=== PATIENT | female | born 1930 | race Caucasian/White ===

== ENCOUNTER → 2016-11-13 | Outpatient (CLI) | payer OTHER ==
[~2016-11-13] MED LIST: ALBU18002; ASPI81TA28 PO; CARB1GEL14; CHOL1000 PO; COLC0.6T54 PO; GABA-113 PO; LEVO125T72 PO; LOSA1TAB38 PO; MULT-190 PO; ROSU20TA PO; SACC250C3 PO; SPRIN/30 INH
--- NOTE | 2016-11-13 15:16 | DIAGNOSTIC IMAGING REPORT ---
LUMBAR SPINE W/O CONTRAST HISTORY:86 yearsFemaleLUMBAR RADICULOPATHY . Chronic low back pain which radiates into the right leg. Difficulty ambulating. COMPARISON: None available. TECHNIQUE: Sagittal T1, T2 and STIR with axial T1 and T2 noncontrast MR images of the lumbar spine were obtained. FINDINGS: There is 10 mm anterolisthesis of L4 on L5. Postlaminectomy changes with interbody rods and screw fixation noted at the L3-L4 and L4-L5 levels. Artifact from the hardware mildly limits evaluation of the levels. There is no focal bone marrow edema, acute fracture or marrow replacing process. 40% anterior endplate compression deformity at T11 appears chronic. There is approximately 3 mm retropulsion superiorly at this level causing mild central canal narrowing. Conus medullaris terminates at the T12-L1 level. Cord is within normal limits. Soft tissues, imaged intrapelvic intra-abdominal structures demonstrate no acute abnormality. On the independent producer images there is a circumscribed T2 hyperintense structure of the right hemipelvis, 2.4 x 3.2 cm which is indeterminate. T9-T10: No central canal or foraminal narrowing on the sagittal imaging alone. T10-T11: Broad-based posterior disc bulge with remote retropulsion from compression deformity causes mild central canal narrowing. Foramen appear patent. T11-T12: No central canal or foraminal narrowing on the sagittal imaging alone. T12-L1: No central canal or foraminal narrowing on the sagittal imaging alone. L1-L2: Mild facet arthropathy without central canal or foraminal narrowing. L2-L3: Circumferential annular disc bulge with central disc extrusion extends inferiorly 3 mm. There is also associated moderate facet arthropathy which results in mild central canal, moderate right and mild left foraminal stenosis. L3-L4: No central canal or foraminal narrowing. L4-L5: Disc uncovering with facet arthropathy. No central canal or definite foraminal narrowing. Evaluation of the right foramen is limited secondary to artifact as mentioned above. L5-S1: Broad-based posterior disc bulge with spondylitic ridging, moderate facet arthropathy and bilateral facet effusions. No central canal narrowing. There is moderate right and mild left foraminal stenosis. IMPRESSION: 1. Prior laminectomy with interbody lesa and screw fixation at L3-L4 and L4-L5. 2. 10 mm anterolisthesis of L4 on L5 without associated bone marrow edema. Correlate with comparison studies to evaluate for chronicity. 3. At L2-L3, there is mild central canal, moderate right and mild left foraminal narrowing secondary to combination of discogenic degeneration and moderate facet arthropathy. 4. At L5-S1, moderate facet arthropathy with facet effusions and posterior spondylitic ridging combines to form moderate right and mild left foraminal narrowing. 5. Remote compression deformity of T11 with minimal retropulsion causes mild central canal stenosis. The above report was generated using voice recognition software. It may contain grammatical, syntax or spelling errors. Electronically signed by: Serjio Kee 11/13/2016 3:14 PM Dictated Date/Time: 11/13/2016 3:04 PM
== END | disposition home or self-care (01) ==
LOC: C.MRIBC 14:05
PROVIDERS: ATTEND Physician Assistant Medical
DX: M54.16 Radiculopathy, lumbar region (principal)

== ENCOUNTER 2017-05-06 15:17 | Emergency (ER) | payer OTHER ==
[~2017-05-06] VITALS: Ht 160 cm; Wt 74.1 kg
[~2017-05-06 15:17] MED LIST changes: -SACC250C3 PO; -SPRIN/30 INH
[2017-05-06 15:18] VITALS: TEMP 36.3; Ht 160 cm; Wt 74.1 kg
[2017-05-06] MEDS ORDERED: IBUPROFEN 600 MG TAB PO STA (16:17)
--- NOTE | 2017-05-06 16:57 | DIAGNOSTIC IMAGING REPORT ---
RIGHT SHOULDER 3 VIEWS CLINICAL HISTORY: Fall with right shoulder pain. FINDINGS: 3 views of the right shoulder are obtained. No prior studies are available for comparison at the time of dictation. The skeletal structures are osteopenic. There is no evidence of fracture or dislocation. Mild arthritic change is seen at the glenohumeral articulation. The overlying soft tissues are within normal limits. Interstitial thickening is noted in the visualized right upper lobe. IMPRESSION: There is no radiographic evidence of right shoulder fracture or dislocation. Electronically signed by: Bryan Knapp M.D. 05/06/2017 4:56 PM Dictated Date/Time: 05/06/2017 4:55 PM
--- NOTE | 2017-05-06 17:02 | DIAGNOSTIC IMAGING REPORT ---
PA CHEST WITH RIGHT-SIDED RIB SERIES CLINICAL HISTORY: Fall with right-sided chest wall pain. FINDINGS: A PA chest radiograph with 4 additional views may right-sided rib series is obtained. No prior studies are available for comparison at the time of dictation. The heart is enlarged and there is atherosclerotic calcification of the thoracic aorta. Foci of linear scarring versus atelectasis are present at the lung bases. Chronic appearing interstitial thickening is noted. No large pleural effusion or pneumothorax is seen. The skeletal structures are osteopenic. There are acute appearing right lateral third, fourth, and fifth rib fractures. No additional right-sided rib fracture is clearly seen. Degenerative change is seen throughout the thoracic spine. Several age indeterminant thoracic compression deformities are noted. Fusion hardware is noted in the lumbar spine. Cholecystectomy clips are identified in the right upper quadrant. Atherosclerotic calcification is noted in the carotid bulbs. IMPRESSION: 1. Cardiomegaly with no acute cardiopulmonary abnormality. 2. There are acute appearing right lateral 3rd, 4th, and 5th rib fractures. Electronically signed by: Bryan Knapp M.D. 05/06/2017 5:00 PM Dictated Date/Time: 05/06/2017 4:56 PM
[2017-05-06] MEDS ORDERED: ONDA4TAB10 SL (17:11)
[2017-05-06] MEDS ORDERED: HYDR-5688 PO (17:11)
[2017-05-06 17:16] VITALS: BP 175/80; PULSE 78; O2SAT 95
--- NOTE | 2017-05-06 17:54 | EMERGENCY ROOM VISIT NOTE ---
ED Visit Note First contact with patient: 15:24 Patient seen and evaluated bedside, discussed all results. Discussed xray results, use of pain medications, follow-up with family doctor, symptoms to watch and return for, she verbalized understanding was agreeable with plan.
--- NOTE | 2017-05-07 10:57 | EMERGENCY ROOM VISIT NOTE ---
ED Visit Note First contact with patient: 15:24 Chief Complaint: I fell and hurt my right shoulder and ribs. History of Present Illness: Ms. Mcelroy is an 87-year-old white female who ambulates into the ED accompanied by female friend complaining of right shoulder and right sided rib pain. Patient reports she was visiting family members on [place], 4 days ago. She reports she was sitting on the edge of an air mattress and slid off and fell onto her right shoulder. She reports since that time she has been having anterior and lateral shoulder pain, thoracic back and right sided rib pain. Currently she describes her pain as an achy sensation that becomes sharp with shoulder movements. She places her shoulder pain over the anterior lateral aspect of the humeral head and proximal humerus. She places her rib discomfort over the anterior and lateral aspects of ribs 3 through 7. She places her thoracic back pain in the posterior aspect of ribs 5 through 7; no bony thoracic spine back pain. She reports her overall pain at rest is 3/10 and it becomes 6/10 with all arm movements and deep inspiration. She has been using [id number] ibuprofen without relief of her discomfort; she does report she took this medication about 4 hours before she arrived in the emergency department and after taking the medication noted his in 2011. Her shoulder pain worsens primarily with flexion and abduction of the glenohumeral joint and her rib pain worsens with deep inspiration and movements of her shoulder. She reports at the time of the injury she did not strike her head or have a loss of consciousness and since the injury she denies all signs of head injury, she also denies neck pain, chest pain, shortness of breath, abdominal pain, nausea, vomiting, right upper extremity weakness/numbness/tingling. Review of Systems: As noted above in history of present illness. At least body systems were reviewed and found to be negative as noted above. Past Medical History: Diabetes, hypertension, COPD, status post tonsillectomy, adenoidectomy, appendectomy, cholecystectomy, unspecified hip and knee surgeries , laminectomy and cataract surgery. Current Medications: Allergies to Medications: Codeine, oxycodone, sulfa. Social History: Patient is not employed; she feels safe in her home environment ; she denies tobacco use and admits to rare alcohol use. Physical Examination: Vital Signs: Date Time Temp Pulse Resp B/P (MAP) Pulse Ox O2 Delivery O2 Flow Rate FiO2 05/06/17 17:16 78 18 175/80 95 Room Air 05/06/17 15:18 36.3 95 18 131/61 94 Room Air GENERAL: 87-year-old female in mild distress due to pain, nontoxic-appearing, afebrile and hemodynamically stable. NEUROLOGICAL: Awake, alert and oriented to person, place and time. Answering questions appropriately and following commands. Good hand eye coordination. No focal motor sensory deficits. SKIN: Warm, dry and pink. No soft tissue trauma noted. HEENT: Atraumatic and normocephalic. Face: No signs of trauma. Airway is patent. Speech is normal and clear. BACK: No tenderness over the bony cervical, thoracic and lumbar spine. Mild tenderness over the posterior right ribs 5 through 7. I do not appreciate any bony deformity or crepitus. There is no subcutaneous air. I do not appreciate any tenderness throughout the paraspinous muscles or spasm. No CVA tenderness. THORAX: Lungs sounds are clear to auscultation and equal bilaterally with symmetrical chest wall. No wheezing, rales or rhonchi. Moderate tenderness over the lateral aspects of ribs 3 through 7. No bony crepitus, bony deformities, subcutaneous air, or soft tissue injuries. HEART: Regular rate and rhythm. No gallops, rubs or murmurs are appreciated. ABDOMEN: Flat, soft and nontender. Positive bowel sounds in all quadrants. No guarding, rigidity or organomegaly. RIGHT UPPER EXTREMITY: No gross bony deformity. Mild tenderness over the lateral and anterior aspect of the humeral head and proximal humerus. I do not appreciate any bony deformities or crepitus. No tenderness over the clavicle or scapula. Patient has full range of motion in all movements of the shoulder, elbow, forearm or wrist. No tenderness throughout the elbow, wrist or forearm. Throughout the extremity the skin was warm and pink. Capillary refill is brisk. Distal pulses were intact. Sensation was intact to light touch. ED Course: Patient is assessed as noted above. Patient's medication list was reviewed. Patient was given 600 mg of ibuprofen by mouth for pain. PA Chest with Right Sided Rib X-Rays: Were read by myself and the radiologist showing no acute infiltrates, effusions or pneumothorax. Cardiomegaly was present. Ribs showed acute fractures of the lateral aspect of ribs 3, 4 and 5. Right Shoulder X-Rays: Were read by myself and shows no acute fractures or dislocations. Patient's case was reviewed with Dr. Canales; she independently assessed the patient we agreed on diagnostic approach, treatment, disposition and plan. Patient was educated about today's findings and instructed on her treatment plan ; she verbalized understanding and agreement with this plan. Clinical Impression: Multiple right sided rib fractures. Right shoulder pain. Status post fall. Disposition: Patient discharged home in stable condition accompanied by female friends; prior to departure she was reassessed and subjectively reported her pain increased the level 4/10. She continued to deny any shortness of breath. Plan: Comfort measures were discussed with the patient including rest, ice and she was placed on a sliding pain scale of ibuprofen, acetaminophen and [place]; she was given appropriate narcotic precautions and her name was checked in the state database and no red flags were noted. Additionally patient was prescribed Zofran 4 mg; she reports she does have nausea during previous episodes of using narcotics. Patient was given an barometer and instructed on its use and encouraged to use it every couple hours while awake for 10-15 minutes. Patient was encouraged to contact her PCP and request follow-up care and treatment. Patient was encouraged return ED for uncontrolled pain, fevers, coughing up blood, difficulty breathing, shortness of breath, worsening arm pain, arm weakness/numbness/tingling or any new/concerning symptoms.
== END 2017-05-06 17:20 | disposition home or self-care (01) ==
LOC: C.EDB 15:17 → C.EDD 17:20
DX: S22.41XA Multiple fractures of ribs, right side, initial encounter for closed fracture (principal); M25.511 Pain in right shoulder; M54.6 Pain in thoracic spine; E11.9 Type 2 diabetes mellitus without complications; I10 Essential (primary) hypertension; J44.9 Chronic obstructive pulmonary disease, unspecified; W06.XXXA Fall from bed, initial encounter

== ENCOUNTER 2017-07-18 10:42 | Emergency (ER) | payer OTHER ==
[~2017-07-18] VITALS: Ht 152.4 cm; Wt 76.1 kg
[~2017-07-18 10:42] MED LIST changes: -ALBU18002; -CARB1GEL14; +HYDR-5688 PO; +ONDA4TAB10 SL
[2017-07-18 10:55] VITALS: TEMP 36.4; Ht 152.4 cm; Wt 76.1 kg
--- NOTE | 2017-07-18 11:44 | DIAGNOSTIC IMAGING REPORT ---
R HUMERUS MIN 2 VIEWS ROUTINE, R SHOULDER MIN 2 VIEWS ROUTINE HISTORY: 87 years-old Female right proximal humerus pain s/p fall acute right shoulder pain status post fall COMPARISON: Right shoulder radiographs 05/06/2017 chest and rib radiographs 05/06/2017 TECHNIQUE: 3 views of the right shoulder min 2 views of the right humerus FINDINGS: SHOULDER: Moderate degenerative changes of the glenohumeral and AC joints. Acute comminuted fracture of the proximal right humerus is noted with slight impaction. Lateral displacement of the proximal fracture fragments are noted measuring up to 7 mm. Fracture lines involve the surgical neck, greater and likely also the lesser tuberosity. The articular humeral head appears intact. Moderate soft tissue swelling with probable joint effusion. No dislocation. Likely remote fractures of the right ribs noted. HUMERUS: The mid and distal portions of the right humerus appear intact. IMPRESSION: comminuted mildly impacted and displaced fracture of the proximal right humerus with fracture lines involving the surgical neck, greater and likely also the lesser tuberosity. The above report was generated using voice recognition software. It may contain grammatical, syntax or spelling errors. Electronically signed by: Serjio Kee M.D. 07/18/2017 11:43 AM Dictated Date/Time: 07/18/2017 11:38 AM
[2017-07-18] MEDS ORDERED: ACETAMINOPHEN 500 MG TAB PO STA ×2 (11:46→11:52)
[2017-07-18] MEDS ORDERED: ONDA4TAB10 SL (12:28)
[2017-07-18] MEDS ORDERED: OXYC1TAB3 PO (12:28)
--- NOTE | 2017-07-18 12:31 | EMERGENCY ROOM VISIT NOTE ---
ED Visit Note First contact with patient: 11:02 CHIEF COMPLAINT: Right shoulder pain HISTORY OF PRESENT ILLNESS: This 87-year-old female patient presents to the emergency department, ambulatory, complaining of pain in the right shoulder after suffering a mechanical fall. The patient states she was getting off of the toilet, and trying to pull her pants up, when she believes she was standing on her pants. She lost her balance and fell, landing on the right shoulder on the cement floor. She denies any head injury. There is limitation of motion of the arm because of the pain. The pain is moderate, constant and increases with motion of the hand and arm. The patient states the pain is sharp and 5/10. The patient has taken nothing for relief of the pain. No previous significant previous shoulder disease or injury. No numbness or tingling. No neck or back pain. No chest pain or shortness of breath. No abdominal pain or nausea/ vomiting. No cough. The patient initially denies hitting her head, but later states she does not remember and is uncertain if she hit her head. REVIEW OF SYSTEMS: A 6 system review of systems was performed with positives and pertinent negatives in the HPI. ALLERGIES: Codeine, oxycodone MEDICATIONS: Aspirin, vitamin D, colchicine, gabapentin, Synthroid, Cozaar, Ocuvite PreserVision, Crestor PMH: Hypertension, neuropathy, hypothyroidism SOCIAL HISTORY: The patient lives locally alone. She denies drug, alcohol, tobacco use. PHYSICAL EXAM: Vital Signs: Reviewed nurse's notes, vital signs stable. GENERAL : This is an 87-year-old white female, in no acute distress, but appears to be in pain, well-developed, well-nourished. MUSCULOSKELETAL: There is no deformity in the contour of the right shoulder and there are no obvious mihaela deformities noted. There is no sulcus sign. There is tenderness over the proximal humerus/ humeral head. The patient's range of motion is significantly limited due to pain. Supraspinatus strength 3/5. There is no clavicle tenderness. No tenderness of the humerus, elbow, wrist, or hand. [employer] strength 5/5. Radial pulse 2+. NECK: No tenderness to palpation over the cervical spine. Supple. No lymphadenopathy. HEART: Regular rate and rhythm without murmurs gallops or rubs. LUNGS: Clear to auscultation bilaterally without wheezes, rales or rhonchi. No accessory muscle use. No retractions. HEENT: Contusion of right supraorbital region. No lacerations or open wounds noted. Normocephalic. PERRLA. Turbinates without edema or erythema. Nasal septum in tact without deviation. NEURO: The patient is alert and oriented to person, place, and time. Normal sensation to light and sharp touch. Capillary refill less than 2 seconds. RADIOLOGY: R HUMERUS MIN 2 VIEWS ROUTINE, R SHOULDER MIN 2 VIEWS ROUTINE HISTORY: 87 years-old Female right proximal humerus pain s/p fall acute right shoulder pain status post fall COMPARISON: Right shoulder radiographs 05/06/2017 chest and rib radiographs 05/06/2017 TECHNIQUE: 3 views of the right shoulder min 2 views of the right humerus FINDINGS: SHOULDER: Moderate degenerative changes of the glenohumeral and AC joints. Acute comminuted fracture of the proximal right humerus is noted with slight impaction. Lateral displacement of the proximal fracture fragments are noted measuring up to 7 mm. Fracture lines involve the surgical neck, greater and likely also the lesser tuberosity. The articular humeral head appears intact. Moderate soft tissue swelling with probable joint effusion. No dislocation. Likely remote fractures of the right ribs noted. HUMERUS: The mid and distal portions of the right humerus appear intact. IMPRESSION: comminuted mildly impacted and displaced fracture of the proximal right humerus with fracture lines involving the surgical neck, greater and likely also the lesser tuberosity. The above report was generated using voice recognition software. It may contain grammatical, syntax or spelling errors. Electronically signed by: Serjio Kee M.D. 07/18/2017 11:43 AM Dictated Date/Time: 07/18/2017 11:38 AM HEAD WITHOUT CONTRAST (CT) CLINICAL HISTORY: 87 years-old Female with fall, possible head injury. Acute head injury status post fall TECHNIQUE: Multiple axial CT images of the head were obtained without contrast. A dose lowering technique was utilized adhering to the principles of ALARA. CT DOSE: 614.27 mGy.cm COMPARISON: None. FINDINGS: No acute intracranial hemorrhage, midline shift, intracranial mass, hydrocephalus, territorial ischemia or abnormal extra-axial collection. Moderate atrophy with ex vacuo ventriculomegaly. Moderate patchy multifocal areas of low-attenuation within the periventricular white matter compatible with chronic microvascular ischemic changes. Senescent calcifications of the lentiform nuclei. Cerebral vascular calcifications are seen at the level of the skull base. The calvarium is intact. The paranasal sinuses, mastoid air cells, and middle ear cavities are clear. Mild right periorbital soft tissue swelling. IMPRESSION: 1. No acute intracranial abnormality or calvarial fracture. 2. Mild right periorbital soft tissue swelling without opaque foreign body. The above report was generated using voice recognition software. It may contain grammatical, syntax or spelling errors. Electronically signed by: Serjio Kee M.D. 07/18/2017 12:48 PM Dictated Date/Time: 07/18/2017 12:46 PM EMERGENCY DEPARTMENT COURSE: I examined the patient. An X-ray of the right shoulder and humerus was reviewed by myself and radiologist and shows proximal humerus fracture as above. I contacted orthopedics, and spoke with Dr. Prather, who recommended sling and swath, pain medication, and ice over the weekend and close follow-up with [facility] on Thursday. The patient was given 1000 mg Tylenol and her arm was placed in a sling and swath. The patient does live alone, but her family states they will be able to stay with her and keep her safe while healing from the arm fracture. The patient does have allergy listed to codeine and oxycodone, however she states the allergy is only nausea, and not a true allergy. She will be given Zofran in the case of nausea, but I did encourage her to use the narcotics only if needed and if not home alone to avoid more falls. The patient was seen by Dr. Menjivar, and she did state she is uncertain if she hit her head, after telling me she did not hit her head. CT scan was performed at this time due to the uncertainty and the patient's age, and was negative. Discharge instructions reviewed, the patient was discharged home in good condition. I attest that I have personally reviewed the patient's current medication list. Blood Pressure Screening: Patient was found to have a slightly elevated blood pressure due to circumstances. I do not believe that the patient requires hypertension monitoring. Differential diagnosis includes fracture, sprain, strain, contusion, dislocation , ICH, headache, migraine, facial fracture, contusion, skull fracture, and others DIAGNOSIS: Proximal right humerus fracture, closed head injury, fall Current/Historical Medications Scheduled Aspirin (Aspirin Ec), 81 MG PO DAILY Cholecalciferol (Vitamin D3), 1,000 UNITS PO DAILY Colchicine (Colchicine), 0.6 MG PO DAILY Gabapentin (Neurontin), 300 MG PO TID Levothyroxine Sodium (Synthroid), 125 MCG PO DAILY Losartan Potassium (Cozaar), 100 MG PO DAILY Ocuvite Preservision (Ocuvite Preservision), 1 TAB PO DAILY Ondasetron Odt (Zofran Odt), 4 MG SL Q6H Rosuvastatin Calcium (Crestor), 20 MG PO DAILY Scheduled PRN Oxycodone Ir (Roxicodone Ir), 1 TAB PO Q4-6H PRN for Pain Allergies Coded Allergies: Codeine (Verified Allergy, Intermediate, GI SYMPTOMS, 07/18/17) Oxycodone (Verified Allergy, Intermediate, GI SYMPTOMS, 07/18/17) Vital Signs Date Time Temp Pulse Resp B/P (MAP) Pulse Ox O2 Delivery O2 Flow Rate FiO2 07/18/17 12:50 69 16 147/95 96 Room Air 07/18/17 10:55 36.4 89 20 180/81 94 Room Air Medications Administered Medications (Trade) Dose Ordered Sig/Jhonny Route Start Time Stop Time Status Last Admin Dose Admin Acetaminophen (Tylenol Tab) 500 mg NOW STAT PO 07/18/17 11:46 07/18/17 11:47 DC 07/18/17 11:54 500 MG Acetaminophen (Tylenol Tab) 500 mg NOW STAT PO 07/18/17 11:52 07/18/17 11:53 DC 07/18/17 11:57 500 MG Departure Information Impression Primary Impression: Closed comminuted right humeral fracture Additional Impressions: Closed head injury Fall Dispostion Home / Self-Care Condition GOOD Prescriptions Ondasetron Odt (ZOFRAN ODT) 4 Mg Tab 4 MG SL Q6H for Nausea, #6 TAB Prov: Hayde Valdes PA-C 07/18/17 Oxycodone Ir (Roxicodone Ir) 5 Mg Tab 1 TAB PO Q4-6H Y for Pain, #10 TAB For Initial Treatment Prov: Hayde Valdes PA-C 07/18/17 Referrals Joe Rivera,,D.O. (PCP) Patient Instructions [facility] Additional Instructions You were seen in the ED today for a proximal humerus fracture. Oxycodone (OxyIR) 5mg: Take 1 pill every four to six hours as needed for breakthrough pain. Avoid alcohol, operating machinery or dangerous equipment, working on ladders or roofs, DRIVING, or situations where being under the influence may be dangerous. It is recommended to use an pdtn-ulm-wdcmdyn stool softener such as Colace, 100mg twice daily while taking this medication to avoid constipation. Ibuprofen(Motrin, Advil) may be used for fever or pain. Use 600mg every six hours as needed. Take with food. Avoid using more than 2400mg in a 24 hour period. Do not use 2400mg per day for more than three consecutive days without physician direction. Prolonged inappropriate use can lead to stomach upset or ulcers, or renal/cardiac adverse effects. (AND/OR) Acetaminophen(Tylenol) may be used for fever or pain. Use 1000mg every six hours as needed. Avoid using more than 3000mg in a 24 hour period. Ice compresses for 20 minutes at a time four times daily for 2-3 days. Use the sling as instructed. Remove your arm from the sling 4-6 times a day and move all the joints around to keep them loose. Rest and elevate your injury. Return to the ER immediately for any numbness, tingling, severe pain, extreme swelling in the extremity or as needed. Call [facility], [phone], on Thursday to arrange follow up for your injury. Follow-up with your primary care physician in 2 to 3 days for a recheck of your current condition. Return to the Emergency Department if your current symptoms worsen despite treatment course outlined above, or if you develop any of the following symptoms : intractable pain despite aforementioned treatment course, visual disturbances , loss of vision, unilateral weakness or facial drooping, slurring of speech, loss of coordination, or loss of consciousness. Problem Qualifiers Primary Impression: Closed comminuted right humeral fracture Encounter type: initial encounter Humerus Location: supracondylar fracture without intercondylar fracture Fracture alignment: displaced Qualified Codes : S42.421A - Displaced comminuted supracondylar fracture without intercondylar fracture of right humerus, initial encounter for closed fracture Additional Impressions: Closed head injury Encounter type: initial encounter Qualified Codes: S09.90XA - Unspecified injury of head, initial encounter Fall Encounter type: initial encounter Qualified Codes: W19.XXXA - Unspecified fall, initial encounter
[2017-07-18 12:50] VITALS: BP 147/95; PULSE 69; O2SAT 96
--- NOTE | 2017-07-18 12:50 | DIAGNOSTIC IMAGING REPORT ---
HEAD WITHOUT CONTRAST (CT) CLINICAL HISTORY: 87 years-old Female with fall, possible head injury. Acute head injury status post fall TECHNIQUE: Multiple axial CT images of the head were obtained without contrast. A dose lowering technique was utilized adhering to the principles of ALARA. CT DOSE: 614.27 mGy.cm COMPARISON: None. FINDINGS: No acute intracranial hemorrhage, midline shift, intracranial mass, hydrocephalus, territorial ischemia or abnormal extra-axial collection. Moderate atrophy with ex vacuo ventriculomegaly. Moderate patchy multifocal areas of low-attenuation within the periventricular white matter compatible with chronic microvascular ischemic changes. Senescent calcifications of the lentiform nuclei. Cerebral vascular calcifications are seen at the level of the skull base. The calvarium is intact. The paranasal sinuses, mastoid air cells, and middle ear cavities are clear. Mild right periorbital soft tissue swelling. IMPRESSION: 1. No acute intracranial abnormality or calvarial fracture. 2. Mild right periorbital soft tissue swelling without opaque foreign body. The above report was generated using voice recognition software. It may contain grammatical, syntax or spelling errors. Electronically signed by: Serjio Kee M.D. 07/18/2017 12:48 PM Dictated Date/Time: 07/18/2017 12:46 PM
--- NOTE | 2017-07-18 14:50 | EMERGENCY ROOM VISIT NOTE ---
ED Visit Note First contact with patient: 12:02 The patient was seen and examined with LEENA ji. I agree with the history, physical and findings. Please see the note for disposition and details.
== END 2017-07-18 13:01 | disposition home or self-care (01) ==
LOC: C.EDB 10:44 → C.EDD 13:01
DX: S42.421A Displaced comminuted supracondylar fracture without intercondylar fracture of right humerus, initial encounter for closed fracture (principal); S09.90XA Unspecified injury of head, initial encounter; W01.198A Fall on same level from slipping, tripping and stumbling with subsequent striking against other object, initial encounter; I10 Essential (primary) hypertension; E03.9 Hypothyroidism, unspecified; Z79.82 Long term (current) use of aspirin; Z88.6 Allergy status to analgesic agent

== ENCOUNTER 2020-02-29 10:09 | Inpatient (IN) ==
[2020-02-29] MEDS ORDERED: ONDANSETRON INJ 2 MG/ML 2 ML VIAL IV STA (10:37)
[2020-02-29] MEDS: MoRPHine SULFATE 4 MG/ML 1 ML CARP\\VIAL IV PRN ×3 (10:53→20:30)
--- NOTE | 2020-02-29 10:54 | Emergency Department Note ---
Impression & Plan Intertrochanteric fracture of right hip, Leukocytosis, DANNY (acute kidney injury), Serum calcium elevated ED Provider Note NAME: JADEN GOMEZ AGE: 89 SEX: F : 1930 ARRIVES VIA: Ambulance INFORMANT: Patient ED PROVIDER(S): Kanu Sharpe DO CHIEF COMPLAINT: Right hip pain HPI: Patient is a 89-year-old female who presents the ER following mechanical fall. She was trying to empty her paper shredder and did not have her walker. She turned around to get her walker and she fell onto her right hip. She did not hit her head or neck. This occurred around 8:30-9. She complains of pain in the right hip about a 6 out of 10. No other exacerbating or remitting factors with the exception of movement. She notes it is a dull ache now. Denies any new tingling or numbness. Denies any chest pain, shortness of breath, nausea, vomiting or diarrhea. Does have decreased sensation in the lower extremities which is chronic and unchanged since prior to the fall. ROS: See above HPI for pertinent positives & negatives. A total of 10 systems reviewed and were otherwise negative. PAST MEDICAL HISTORY:See Below PAST SURGICAL HISTORY:See Below FAMILY HISTORY:See Below SOCIAL HISTORY:See Below HOME MEDICATIONS:See Below ALLERGIES:See Below VITALS:See Below PHYSICAL EXAMINATION: GENERAL: alert, mild distress HEAD: normal cephalic, atraumatic EYE EXAM: normal conjunctiva, PERRL and EOM's grossly intact OROPHARYNX: no exudate, no erythema, lips, buccal mucosa, and tongue normal and mucous membranes are moist NECK: supple, no nuchal rigidity, no adenopathy, non-tender CHEST: stable to compression anteriorly and posteriorly LUNGS: clear to auscultation. Normal chest wall mechanics HEART: no murmurs, S1 normal and S2 normal ABDOMEN: abdomen soft, non-tender, normo-active bowel sounds, no masses, no rebound or guarding. PELVIS: stable to compression anteriorly and posteriorly BACK: Back is symmetrical on inspection and there is no deformity, no midline tenderness, no CVA tenderness. UPPER EXTREMITIES: full active and passive range of motion of all joints without tenderness to palpation LOWER EXTREMITIES: Left lower extremity without tenderness on palpation of left hip, femur, knee and ankle. Range of motion intact. DPs 2 out of 4 bilateral. PTs 2 out of 4 bilateral. Right lower extremity is shortened and externally rotated. Acute tenderness over the right hip. No tenderness throughout the mid to distal femur, knee, tib-fib or ankle. Plantar and dorsiflexion intact. NEURO EXAM: Normal sensorium, cranial nerves II-XII grossly intact, normal speech, no gross weakness of arms. GCS: 15. MEDICAL DECISION MAKING: Patient is a 9-year-old female who presents ER following mechanical fall. She denies any head or neck pain. She did not hit her head or neck. X-rays of the right hip show a right intertrochanteric fracture. IV was established blood work is obtained. Labs show a mild leukocytosis of 13,000. Do favor that this is likely stress-induced. INR unremarkable. BMP with a slightly elevated creatinine 1.5. Calcium is also elevated 10.3. UA was negative. She was typed and screened. X-ray of the femur was unremarkable with exception of the inner troches fracture. Patient was given IV morphine. She was updated bedside discussed with hospitalist for further evaluation as well as orthopedics Dr. Moe Prather. Triage Nursing notes reviewed. Prior medical records reviewed Vital Signs: reviewed and remarkable for no significant abnormalities Differential diagnosis: Differential diagnoses include major intracranial, cervical, spinal, thoracic, abdominal, pelvic and neurologic injury. Fracture, contusion, sprain, strain, laceration, abrasions included as well. ER treatment provided: See below Diagnostics interpreted by me: ECG: Sinus rhythm rate 80 Normal axis No PVCs Normal QTC Cardiac Monitoring: An order was placed for continuous cardiac monitoring. The monitor shows a rate of 82 with sinus rhythm. Laboratory studies: As stated above and show below. Imaging studies: Xrays of the pelvis and right hip right intertrochanteric fracture. X-ray of the right femur shows interval fracture Consultation(s): Discussed with Dr. Moe Prather from orthopedics Discussed with Dr. Marlon Knott ED COURSE: Procedures: none Critical Care: None Past Med/Surg History Medical History Chronic lumbar pain COPD (chronic obstructive pulmonary disease) Dyslipidemia Frozen shoulder Right Hypertension Hypothyroidism Osteoarthritis Osteoporosis Right humeral fracture Sacroiliitis Stage III chronic kidney disease Surgical History History of appendectomy History of arthroscopic knee surgery Right History of cholecystectomy History of dilatation and curettage History of herniorrhaphy History of lumbar surgery L3 through L5 fusion History of tonsillectomy and adenoidectomy History of tubal ligation History of vascular surgery Social History Smoking Status: Former smoker Hx Alcohol Use: Yes Alcohol type: wine Hx Substance Use: No Preferred Language: Norwegian Communication Ability: Effective Franchise Specialist Required: No Beliefs That Will Affect Care: None marital status: Current Living Situation: Alone Other Information That Helps Us Care for You: No Feels Safe at Home: Yes Safety Concerns: Feels Safe At This Time Assistive Devices: Denture - Upper, Denture - Lower, Glasses and Walker Allergies Allergies Allergy/AdvReac Type Severity Reaction Status Date / Time codeine AdvReac Intermediate GI SYMPTOMS Verified 02/29/20 12:58 oxycodone AdvReac Intermediate GI SYMPTOMS Verified 02/29/20 12:58 Home Meds Home Medications Medication Instructions Recorded Confirmed aspirin 81 mg tablet,delayed 81 mg PO DAILY 02/23/18 02/29/20 release cholecalciferol (vitamin D3) 25 1,000 units PO DAILY 02/23/18 02/29/20 mcg (1,000 unit) capsule colchicine 0.6 mg tablet 0.6 mg PO DAILY 02/23/18 02/29/20 rosuvastatin 20 mg tablet 20 mg PO DAILY 02/23/18 02/29/20 denosumab 60 mg/mL subcutaneous 60 mg SQ Q182D ml 02/26/18 02/29/20 syringe gabapentin 300 mg capsule 300 mg PO TID cap 02/26/18 02/29/20 losartan 100 mg tablet 50 mg PO DAILY tab 12/15/18 02/29/20 levothyroxine 50 mcg capsule 50 mcg PO DAILY 07/14/19 02/29/20 magnesium oxide 400 mg PO DAILY 02/29/20 02/29/20 [id number]-min 2 tab PO DAILY 02/29/20 02/29/20 [ICaps] Results & Data (ED) Vital Signs Vital Signs - 24 hr 02/29/20 10:16 Temperature 36.6 C Temperature Source Oral Pulse Rate 78 Respiratory Rate 16 Blood Pressure 179/84 H Blood Pressure Mean 115 Pulse Oximetry 95 Oxygen Delivery Method Room Air Sepsis Recent Fever Within 48 Hours No Sepsis New/Unexplained Change in Mental Status No Sepsis Action Taken by Nursing No Action Required Laboratory Data Result diagrams: 02/29/20 10:46 02/29/20 10:46 Lab Results 02/29/20 02/29/20 02/29/20 Range/Units 10:46 10:46 10:46 WBC 13.85 H (4.8-10.8) K/uL RBC 4.58 (4.2-5.4) M/uL Hgb 14.3 (12.0-16.0) g/dL Hct 43.4 (37-47) % MCV 94.8 (80-100) fL MCH 31.2 (25-34) pg MCHC 32.9 (32-36) g/dL RDW Std Deviation 47.8 H (36.4-46.3) fL RDW Coeff of Nuris 13.9 (11.5-14.5) % Plt Count 197 (130-400) K/uL MPV 8.8 (7.4-10.4) fL Immature Gran % (Auto) 0.4 % Neut % (Auto) 79.9 % Lymph % (Auto) 10.3 % Rains % (Auto) 8.2 % Eos % (Auto) 1.2 % Baso % (Auto) 0.0 % Neut # (Auto) 11.08 H (1.4-6.5) K/uL Lymph # (Auto) 1.42 (1.2-3.4) K/uL Rains # (Auto) 1.14 H (0.11-0.59) K/uL Eos # (Auto) 0.16 (0-0.5) K/uL Baso # (Auto) 0.00 (0-0.2) K/uL Immature Gran # (Auto) 0.05 H (0.00-0.02) K/uL PT Cancelled INR Cancelled APTT Cancelled PTT Ratio Cancelled Sodium (136-145) mmol/L Potassium (3.5-5.1) mmol/L Chloride (98-107) mmol/L Carbon Dioxide (21-32) mmol/L Anion Gap (3-11) BUN (7-18) mg/dl Creatinine (0.6-1.2) mg/dl Est Cr Clr Drug Dosing ml/min Est GFR ( Amer) Est GFR (Non-Af Amer) BUN/Creatinine Ratio (10-20) Glucose (70-99) mg/dl Calcium (8.5-10.1) mg/dl Blood Type O Positive Antibody Screen NEGATIVE 02/29/20 02/29/20 Range/Units 10:46 11:41 WBC (4.8-10.8) K/uL RBC (4.2-5.4) M/uL Hgb (12.0-16.0) g/dL Hct (37-47) % MCV (80-100) fL MCH (25-34) pg MCHC (32-36) g/dL RDW Std Deviation (36.4-46.3) fL RDW Coeff of Nuris (11.5-14.5) % Plt Count (130-400) K/uL MPV (7.4-10.4) fL Immature Gran % (Auto) % Neut % (Auto) % Lymph % (Auto) % Rains % (Auto) % Eos % (Auto) % Baso % (Auto) % Neut # (Auto) (1.4-6.5) K/uL Lymph # (Auto) (1.2-3.4) K/uL Rains # (Auto) (0.11-0.59) K/uL Eos # (Auto) (0-0.5) K/uL Baso # (Auto) (0-0.2) K/uL Immature Gran # (Auto) (0.00-0.02) K/uL PT 10.1 INR 1.0 APTT 26.8 PTT Ratio 1.0 Sodium 140 (136-145) mmol/L Potassium 4.3 (3.5-5.1) mmol/L Chloride 107 (98-107) mmol/L Carbon Dioxide 29 (21-32) mmol/L Anion Gap 4.0 (3-11) BUN 38 H (7-18) mg/dl Creatinine 1.51 H (0.6-1.2) mg/dl Est Cr Clr Drug Dosing 22.2 ml/min Est GFR ( Amer) 35.6 Est GFR (Non-Af Amer) 30.8 BUN/Creatinine Ratio 24.9 H (10-20) Glucose 113 H (70-99) mg/dl Calcium 10.3 H (8.5-10.1) mg/dl Blood Type Antibody Screen Administered Medications Gabapentin (Gabapentin 300 Mg Cap) 300 mg PO TID GEENA Stop: 03/30/20 13:59 Last Admin: 02/29/20 14:09 Dose: Not Given Documented by: [id number] Sodium Chloride (Nss 1000ml) 1,000 mls @ 85 mls/hr IV .[id number] GEENA Stop: 03/30/20 13:19 Last Admin: 02/29/20 14:04 Dose: 85 mls/hr Documented by: [id number] Morphine Sulfate (Morphine Sulfate 4 Mg/Ml 1 Ml Carp\Vial) 4 mg IV Q1H PRN PRN Reason: Severe Pain (Rating 7,8,9,10) Stop: 03/14/20 10:24 Last Admin: 02/29/20 13:58 Dose: 4 mg Documented by: [id number] Admin: 02/29/20 10:53 Dose: 4 mg Documented by: [id number] Discontinued Medications Ondansetron HCl (Ondansetron Inj 2 Mg/Ml 2 Ml Vial) 4 mg IV NOW STA Stop: 02/29/20 10:38 Last Admin: 02/29/20 10:54 Dose: 4 mg Documented by: [id number] Discharge Plan Visit Data Chief Complaint: Fall ED Provider: Kanu Sharpe Discharge Problem: Intertrochanteric fracture of right hip, Leukocytosis, DANNY (acute kidney injury), Serum calcium elevated Patient Disposition: Admitted As Inpatient Discharge Instructions Interventions: ED Discharge Assessment Last Done: 02/29/20 12:42 Discharge Problem: Intertrochanteric fracture of right hip Qualifiers: Encounter type: initial encounter Fracture type: closed Fracture alignment: displaced Qualified Code(s): S72.141A - Displaced intertrochanteric fracture of right femur, initial encounter for closed fracture Leukocytosis Qualifiers: Leukocytosis type: unspecified Qualified Code(s): D72.829 - Elevated white blood cell count, unspecified
[2020-02-29 11:03] LABS: Eosinophils # (auto) 0.16 K/uL (0-0.5); Eosinophils % (auto) 1.2 %; Hematocrit (blood only) 43.4 % (37-47); Hemoglobin 14.3 g/dL (12.0-16.0); Immature Granulocytes # (auto) 0.05 K/uL (0.00-0.02); Immature Granulocytes % (auto) 0.4 %; Lymphocytes # (auto) 1.42 K/uL (1.2-3.4); Lymphocytes % (auto) 10.3 %; Mean Corpuscular Hemoglobin 31.2 pg (25-34); Mean Corpuscular Hgb Conc 32.9 g/dL (32-36); Mean Corpuscular Volume 94.8 fL (80-100); Mean Platelet Volume 8.8 fL (7.4-10.4); Monocytes # (auto) 1.14 K/uL (0.11-0.59); Monocytes % (auto) 8.2 %; Neutrophils # (auto) 11.08 K/uL (1.4-6.5); Neutrophils % (auto) 79.9 %; Platelet Count 197 K/uL (130-400); RDW Coefficient of Variation 13.9 % (11.5-14.5); RDW Standard Deviation 47.8 fL (36.4-46.3); Red Blood Count 4.58 M/uL (4.2-5.4); White Blood Count 13.85 K/uL (4.8-10.8)
--- NOTE | 2020-02-29 11:25 | XRay Report ---
XR chest 1V portable CLINICAL HISTORY: Chest pain status post trauma COMPARISON STUDY: April 2017 FINDINGS: The heart is the upper limits of normal in size. There is no failure. There is no focal pul monary consolidation. There are no pleural effusions. No pneumothorax is visualized. There are old ri b fractures. Arthritic changes are present within the shoulders. There are left mid to lower lung zon e atelectatic changes.[ IMPRESSION: No active disease in the chest. ACT 112: Negative or not required by law. Electronically signed by: Nas Fiore M.D. 02/29/2020 11:23 AM
[2020-02-29 11:30] LABS: BUN Creatinine Ratio 24.9 (10-20); Calcium 10.3 mg/dl (8.5-10.1); Creatinine Clr Calc Pharmacy 22.2 ml/min; Est GFR (African American) 35.6; Est GFR (Non-African American) 30.8; Potassium 4.3 mmol/L (3.5-5.1)
--- NOTE | 2020-02-29 11:40 | XRay Report ---
XR hip RT 2V w pelvis HISTORY: 89 years-old Female r hip pain acute right-sided hip pain COMPARISON: Right hip radiographs 05/30/2016 TECHNIQUE: AP view of the pelvis with 2 views of the right hip FINDINGS: Demineralized appearance of the bones. Moderate osteoarthritis of the femoral acetabular joints. Ther e is an acute intertrochanteric fracture of the right femur with fracture extension into the subtroch anteric distribution. There is mild apex superior lateral angulation. There is approximately 11 mm me dial displacement of the intertrochanteric and lesser trochanteric fracture fragment. There is no dis location. Moderate lateral soft tissue swelling. Ovoid lucencies projecting over the proximal femoral diaphysis may reflect prior hardware removal. Posterior interbody lesa and screw fusion hardware of t he lumbar spine. IMPRESSION: Acute mildly comminuted and displaced intertrochanteric fracture of the right femur. ACT 112: Negative or not required by law. The above report was generated using voice recognition software. It may contain grammatical, syntax o r spelling errors. Electronically signed by: Serjio Kee M.D. 02/29/2020 11:39 AM
--- NOTE | 2020-02-29 11:58 | History & Physical Report ---
Date of Service February 29, 2020 Assessment & Plan (1) Intertrochanteric fracture of right hip: Patient admitted for the geriatric fracture program after x-ray revealed a mildly comminuted and displaced intertrochanteric right hip fracture. ER did phone Dr. Prather who accepted the patient for surgical correction the exact timing of this correction is not clear as mentioned in the HPI there is some concern the patient may have an allergy to implantable metal this could or could not be nickel this was communicated to orthopedic surgeon were attempting to get records from [facility] for previous surgery she is obviously tolerated spinal surgery as she has implanted fix of hardware in her back Patient have her home aspirin held DVT prevention will be SCDs (2) Stage III chronic kidney disease: We have no old records here patient's kidney disease seems to be stage III creatinine zero 1.5 we will renally dose medicines were appropriate (3) Hypothyroidism: Patient typically takes Synthroid 50 mcg a day (4) COPD (chronic obstructive pulmonary disease): Patient takes daily Spiriva and as needed albuterol (5) Hypertension: Patient takes losartan for blood pressure control we will watch in a postoperative day 1 and avoid orthostatic hypotension (6) DVT prophylaxis: SCDs until postoperative surgical preference is chosen History of Present Illness Primary Care Provider: Joe Rivera Jr, DO 89-year-old female who presents the ER following mechanical fall. She was trying to empty her paper shredder and did not have her walker. She turned around to get it and she fell onto her right hip. She did not hit her head or neck. This occurred around 8 30-9am. She complains of pain in the right hip about a 6 out of 10. No other exacerbating or remitting factors with the exception of movement. She notes it is a dull ache now. Denies any new tingling or numbness. Denies any chest pain shortness of breath nausea vomiting or diarrhea. Does have decreased sensation in the lower extremities which is chronic and unchanged since prior to the fall. 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 This information was relayed to orthopedic surgeon Allergies Allergy/AdvReac Type Severity Reaction Status Date / Time codeine Allergy Intermediate GI SYMPTOMS Verified 02/29/20 11:33 oxycodone Allergy Intermediate GI SYMPTOMS Verified 02/29/20 11:33 Home Medications Home Medications Medication Instructions Recorded Confirmed Type aspirin 81 mg tablet,delayed 81 mg PO DAILY 02/23/18 02/29/20 History release cholecalciferol (vitamin D3) 25 1,000 units PO DAILY 02/23/18 02/29/20 History mcg (1,000 unit) capsule colchicine 0.6 mg tablet 0.6 mg PO DAILY 02/23/18 02/29/20 History rosuvastatin 20 mg tablet 20 mg PO DAILY 02/23/18 02/29/20 History denosumab 60 mg/mL subcutaneous 60 mg SQ Q182D ml 02/26/18 02/29/20 History syringe gabapentin 300 mg capsule 300 mg PO TID cap 02/26/18 02/29/20 History losartan 100 mg tablet 50 mg PO DAILY tab 12/15/18 02/29/20 History levothyroxine 50 mcg capsule 50 mcg PO DAILY 07/14/19 02/29/20 History magnesium oxide 400 mg PO DAILY 02/29/20 02/29/20 History [id number]-qvxnabz-min 2 tab PO DAILY 02/29/20 02/29/20 History [ICaps] Past Med/Surg History Medical History (Updated 02/29/20 @ 12:55 by Danny Paul MD) Chronic lumbar pain COPD (chronic obstructive pulmonary disease) Dyslipidemia Frozen shoulder Right Hypertension Hypothyroidism Osteoarthritis Osteoporosis Right humeral fracture Sacroiliitis Stage III chronic kidney disease Surgical History History of appendectomy History of arthroscopic knee surgery Right History of cholecystectomy History of dilatation and curettage History of herniorrhaphy History of lumbar surgery L3 through L5 fusion History of tonsillectomy and adenoidectomy History of tubal ligation History of vascular surgery Social History Smoking Status: Never smoker marital status: Feels Safe at Home: Yes Review of Systems Review of Systems: Mild distress and fatigue no headache, blurry or double vision no speech or swallowing issues no chest pain, pressure or palpitations no shortness of breath, cough or wheezes no abdominal pain, nausea or vomiting, diarrhea or constipation no dysuria, hematuria or frequency Right hip pain especially with movement previous neuropathy is still present no back pain, CVA tenderness or radicular pain no bruising, bleeding or rashes no focal signs of weakness or numbness or still leg neuropathy likely from previous back surgery no complaints of anxiety or depression. Physical Exam Physical Exam: The patient appeared well nourished and normally developed. Vital signs as documented. Head exam is normocephalic atraumatic no scleral icterus Neck is without JVD, thyromegaly, or carotid bruits. Lungs are clear to auscultation, no focal loss of breath sounds Cardiac exam, Rhythm is regular.. No murmurs, rubs or gallops. Abdominal exam reveals normal bowel sounds, soft non tender, no masses Extremities right leg is shortened and rotated painful to movement Neurologic exam is alert and oriented, no focal loss of strength or referral neuropathy present of her feet Skin is without bruises or rashes Psychologically is without concerns for anxiety or depression. Results & Data Results & Data ([facility]) Vital Signs (Past 12 Hours) Vital Signs Temp Pulse Resp BP Pulse Ox 02/29/20 10:16 97.9 F 78 16 179/84 H 95 PG Care Time/CCT Total # of Minutes Spent Total Time Spent with Patient: Total time spent is greater than 50% in coordination of care (as documented) at patient's floor/unit and/or counseling patient: Coding Level of Care Code 88898 Initial Inpt Care Lvl 3 Diagnoses Intertrochanteric fracture of right hip S72.141A Stage III chronic kidney disease N18.3 Hypothyroidism E03.9 COPD (chronic obstructive pulmonary disease) J44.9 Hypertension I10 DVT prophylaxis Z29.9
[2020-02-29 12:09] LABS: Partial Thromboplastin Time 26.8 Seconds (21.0-31.0); Prothrombin Time 10.1 Seconds (9.0-12.0)
[2020-02-29] MEDS ORDERED: ALBUTEROL 0.5% NEB SOLN 2.5 MG/0.5 ML VIAL NEB PRN (12:57)
[2020-02-29 13:06] LABS: Appearance Urine Clear (Clear); Bilirubin Urine Negative (Negative); Blood Urine Negative (Negative); Color Urine Yellow; Glucose Urine UA Negative (Negative); Ketones Urine Negative (Negative); Leukocyte Esterase Urine Negative (Negative); Nitrite Urine Negative (Negative); Protein Urine Negative (Negative); Specific Gravity Urine 1.015 (1.000-1.030); Urobilinogen Urine Negative (Negative)
[2020-02-29] MEDS ORDERED: HYDROmorphone INJ 0.5 MG/0.5 ML SYR IV PRN (13:20)
[2020-02-29] MEDS ORDERED: ACETAMINOPHEN 325 MG TAB PO PRN (13:20)
[2020-02-29] MEDS ORDERED: NALOXONE HCL 0.4 MG/1 ML VIAL/CARP IV PRN (13:20)
[2020-02-29] MEDS ORDERED: hydrALAZINE HCL 20 MG/ML VIAL IV PRN (13:20)
[2020-02-29] MEDS ORDERED: ONDANSETRON INJ 2 MG/ML 2 ML VIAL IV PRN (13:20)
[2020-02-29] MEDS ORDERED: bisacodyL 10 MG SUPP PR PRN (13:20)
[2020-02-29] MEDS ORDERED: MAGNESIUM HYDROXIDE SUSP 30 ML UDC PO PRN (13:20)
[2020-02-29] MEDS ORDERED: ALUMINUM/MAGNESIUM SUSP 30 ML UDC PO PRN (13:20)
[2020-02-29] MEDS: SODIUM CHLORIDE 0.9% 1000ML 1,000 ML IV SCH (14:04)
[2020-02-29] MEDS: GABAPENTIN 300 MG CAP PO SCH ×2 (14:09→21:43)
--- NOTE | 2020-02-29 15:37 | Orthopedic Consultation ---
Date of Consultation February 29, 2020 Assessment & Plan (1) Intertrochanteric fracture of right hip: She was seen and examined by Dr. Guzman today. She been admitted by the hospitalist service. We will order regular diet today make her n.p.o. after midnight. She was educated on this fracture and the surgical treatment for it. We will plan on likely long trochanteric nailing of her right hip tomorrow with Dr. Mc. She does have metal allergy reported but does state that she has h ardware specifically titanium in her back and is done fine with this. Apparently the records have been requested from [facility]. In the meantime she is fairly comfortable at this point so we will not place her in any traction today. Present on Admission?: Yes History of Present Illness Reason for Consultation: Right hip fracture Attending Physician: Danny Paul MD History of Present Illness Velvet is an 89-year-old female who we are consulted for regarding a right hip fracture. She has been seen in our office and had injections for greater trochanteric bursitis in the past, most recently about a month ago by Dr. Mc. The injection helped her hip pain at the time. This morning she was at her apartment and was turning in her bedroom and fell and injured her right hip. She was brought to [facility] where x-rays were obtained she qas found to have a intertrochanteric hip fracture. Her only complaint at this time is right hip pain. She denies any other orthopedic complaints. She previously ambulated with a walker. She does have a history of some surgery on her right hip and her knee for fractures in the past. She states this was approximately 30 years ago and subsequently had the hardware removed. She also reports a metal allergy although she is unsure which certain metal. She reports that she has some titanium in her back from her spine surgery and has not had a problem with that hardware. Allergies Allergy/AdvReac Type Severity Reaction Status Date / Time codeine AdvReac Intermediate GI SYMPTOMS Verified 02/29/20 12:58 oxycodone AdvReac Intermediate GI SYMPTOMS Verified 02/29/20 12:58 Home Medications Home Medications Medication Instructions Recorded Confirmed Type aspirin 81 mg tablet,delayed 81 mg PO DAILY 02/23/18 02/29/20 History release cholecalciferol (vitamin D3) 25 1,000 units PO DAILY 02/23/18 02/29/20 History mcg (1,000 unit) capsule colchicine 0.6 mg tablet 0.6 mg PO DAILY 02/23/18 02/29/20 History rosuvastatin 20 mg tablet 20 mg PO DAILY 02/23/18 02/29/20 History denosumab 60 mg/mL subcutaneous 60 mg SQ Q182D ml 02/26/18 02/29/20 History syringe gabapentin 300 mg capsule 300 mg PO TID cap 02/26/18 02/29/20 History losartan 100 mg tablet 50 mg PO DAILY tab 12/15/18 02/29/20 History levothyroxine 50 mcg capsule 50 mcg PO DAILY 07/14/19 02/29/20 History magnesium oxide 400 mg PO DAILY 02/29/20 02/29/20 History [id number]-zwawlhi-min 2 tab PO DAILY 02/29/20 02/29/20 History [ICaps] Patient History Medical History Chronic lumbar pain COPD (chronic obstructive pulmonary disease) Dyslipidemia Frozen shoulder Right Hypertension Hypothyroidism Osteoarthritis Osteoporosis Right humeral fracture Sacroiliitis Stage III chronic kidney disease Surgical History History of appendectomy History of arthroscopic knee surgery Right History of cholecystectomy History of dilatation and curettage History of herniorrhaphy History of lumbar surgery L3 through L5 fusion History of tonsillectomy and adenoidectomy History of tubal ligation History of vascular surgery Social History Smoking Status: Former smoker Hx Alcohol Use: Yes Alcohol type: wine Hx Substance Use: No Preferred Language: Eritre[place] Communication Ability: Effective First Breaker Feeder Required: No Beliefs That Will Affect Care: None marital status: Current Living Situation: Alone Other Information That Helps Us Care for You: No Feels Safe at Home: Yes Safety Concerns: Feels Safe At This Time Assistive Devices: Denture - Upper, Denture - Lower, Glasses and Walker Review of Systems Review of Systems: All systems reviewed & are unremarkable except as noted in HPI & below Eyes: h/o visual loss Musculoskeletal: as per Subjective / HPI Neurologic: chronic neuropathy Physical Exam Constitutional: well developed and well nourished; no acute distress and no altered mental status ENMT: external ear and nose normal, oropharynx normal Respiratory: normal respiratory effort Cardiovascular: Vessels: dorsalis pedis pulses present Extremities: no edema Musculoskeletal: right leg is shortened and externally rotated. No range of motion of her right hip at this time. She can dorsiflex and plantarflex though dorsiflex seems limited. She can flex and extend her toes. No pain with motion of her wrists, fingers, elbows, or left hip. Skin: no rashes, warm and dry Trauma: no evidence of skin trauma scars on right hip and right knee Neurologic: moves all extremities Motor/Sensory: + sensory deficit (chronic lower extremity neuropathy ) Psychiatric: Orientation: alert and oriented x 3 Apperance: appeared stated age Results & Data ([facility]) Vital Signs (Past 12 Hours) Vital Signs Temp Pulse Pulse Resp BP BP Pulse Ox 02/29/20 13:05 36.8 C 78 14 163/76 H 97 02/29/20 10:16 36.6 C 78 16 179/84 H 95 Diagnostic Findings x-rays of her pelvis and right hip today demonstrate a comminuted intertrochanteric/subtrochanteric hip fracture. There is evidence of screw holes from her prior hardware in the right femoral shaft. PG Care Time/CCT Total # of Minutes Spent Total Time Spent with Patient: Total time spent is greater than 50% in coordination of care (as documented) at patient's floor/unit and/or counseling patient: Coding Level of Care Code 55418 Initial Inpt Care Lvl 3 Diagnoses Intertrochanteric fracture of right hip S72.141A
--- NOTE | 2020-02-29 16:38 | Anesthesiology Consultation ---
Date of Service February 29, 2020 Assessment & Plan Chart Review Chart Review: Acceptable Risk for Surgery and Patient NOT seen in Pre Admission Testing History Surgery Operation Date: 03/01/20 10:10 Proposed Procedures p Long Trok Nail Intramedullary Rene Femur - Mervin Mc DO Height/Weight Height: 5 ft Weight: 68.039 kg Allergies Allergy/AdvReac Type Severity Reaction Status Date / Time codeine AdvReac Intermediate GI SYMPTOMS Verified 02/29/20 12:58 oxycodone AdvReac Intermediate GI SYMPTOMS Verified 02/29/20 12:58 Medications Home Medications Medication Instructions Recorded Confirmed Last Taken aspirin 81 mg tablet,delayed 81 mg PO DAILY 02/23/18 02/29/20 02/28/20 release cholecalciferol (vitamin D3) 25 1,000 units PO DAILY 02/23/18 02/29/20 02/28/20 mcg (1,000 unit) capsule colchicine 0.6 mg tablet 0.6 mg PO DAILY 02/23/18 02/29/20 02/28/20 rosuvastatin 20 mg tablet 20 mg PO DAILY 02/23/18 02/29/20 02/28/20 denosumab 60 mg/mL subcutaneous 60 mg SQ Q182D ml 02/26/18 02/29/20 11/23/19 syringe gabapentin 300 mg capsule 300 mg PO TID cap 02/26/18 02/29/20 02/28/20 losartan 100 mg tablet 50 mg PO DAILY tab 12/15/18 02/29/20 02/28/20 levothyroxine 50 mcg capsule 50 mcg PO DAILY 07/14/19 02/29/20 02/28/20 magnesium oxide 400 mg PO DAILY 02/29/20 02/29/20 02/28/20 [id number]-[id number]-min 2 tab PO DAILY 02/29/20 02/29/20 02/28/20 [ICaps] Active Medications Generic Name Dose Route Start Last Admin Trade Name Freq PRN Reason Stop Dose Admin Gabapentin 300 mg 02/29/20 14:00 02/29/20 14:09 Gabapentin 300 Mg Cap PO 03/30/20 13:59 Not Given TID GEENA Sodium Chloride 1,000 mls @ 85 mls/hr 02/29/20 13:20 02/29/20 14:04 Nss 1000ml IV 03/30/20 13:19 85 mls/hr .[id number] GEENA Administration Morphine Sulfate 4 mg 02/29/20 10:25 02/29/20 13:58 Morphine Sulfate 4 Mg/Ml 1 Ml Carp\Vial IV 03/14/20 10:24 4 mg Q1H PRN Administration Severe Pain (Rating 7,8,9,10) Past Medical History Medical History Chronic lumbar pain COPD (chronic obstructive pulmonary disease) Dyslipidemia Frozen shoulder Right Hypertension Hypothyroidism Osteoarthritis Osteoporosis Right humeral fracture Sacroiliitis Stage III chronic kidney disease Past Surgical History Surgical History History of appendectomy History of arthroscopic knee surgery Right History of cholecystectomy History of dilatation and curettage History of herniorrhaphy History of lumbar surgery L3 through L5 fusion History of tonsillectomy and adenoidectomy History of tubal ligation History of vascular surgery Social History Smoking Status: Former smoker Hx Alcohol Use: Yes Alcohol type: wine alcohol intake frequency: holidays/special occasions only Hx Substance Use: No substance use type: does not use Physical Exam Vital Signs Last Vital Signs Temp 36.5 C 02/29/20 16:04 Pulse 100 H 02/29/20 16:04 Resp 16 02/29/20 16:04 BP 151/74 H 02/29/20 16:04 Pulse Ox 92 02/29/20 16:04 Testing Laboratory Results 02/29/20 10:46 02/29/20 10:46 PT 10.1 Seconds (9.0-12.0) 02/29/20 11:41 INR 1.0 (0.9-1.1) 02/29/20 11:41 APTT 26.8 Seconds (21.0-31.0) 02/29/20 11:41 Urine Color Yellow 02/29/20 12:51 Urine Appearance Clear (Clear) 02/29/20 12:51 Urine pH 7.0 (4.5-7.5) 02/29/20 12:51 Ur Specific [place] 1.015 (1.000-1.030) 02/29/20 12:51 Urine Protein Negative (Negative) 02/29/20 12:51 Urine Glucose (UA) Negative (Negative) 02/29/20 12:51 Urine Ketones Negative (Negative) 02/29/20 12:51 Urine Nitrite Negative (Negative) 02/29/20 12:51 Ur Leukocyte Esterase Negative (Negative) 02/29/20 12:51 Blood Type O Positive 02/29/20 10:46 Antibody Screen NEGATIVE 02/29/20 10:46
[2020-02-29] MEDS ORDERED: DOCUSATE SODIUM/SENNA 50/8.6MG TAB PO SCH (21:00)
[2020-03-01] MEDS: SODIUM CHLORIDE 0.9% 1000ML 1,000 ML IV SCH ×2 (00:18→11:55)
[2020-03-01] MEDS ORDERED: ceFAZolin 2000MG 2,000 MG/15 ML SYR IV SCH (06:00)
[2020-03-01] MEDS ORDERED: LEVOTHYROXINE SODIUM 50 MCG TABLET PO SCH (06:30)
[2020-03-01] MEDS: MoRPHine SULFATE 2 MG/ML CARP IV PRN ×2 (08:09→11:55)
[2020-03-01] MEDS: GABAPENTIN 300 MG CAP PO SCH ×2 (08:09→13:37)
[2020-03-01] MEDS ORDERED: CEROVITE ADV FORMULA TAB PO SCH (09:00)
[2020-03-01] MEDS ORDERED: UMECLIDINIUM BROMIDE 62.5MCG/BLISTER 7 PUFFS/INHALER INH SCH (09:00)
[2020-03-01] MEDS ORDERED: CHOLECALCIFEROL 1,000 UNITS 25 MCG TAB PO SCH (09:00)
[2020-03-01] MEDS ORDERED: prednisoLONE acetate 1% OP SUSP 5 ML BTL OP SCH (09:00)
[2020-03-01 09:05] LABS: Hematocrit (blood only) 35.3 % (37-47); Hemoglobin 11.2 g/dL (12.0-16.0); Mean Corpuscular Hemoglobin 30.5 pg (25-34); Mean Corpuscular Hgb Conc 31.7 g/dL (32-36); Mean Corpuscular Volume 96.2 fL (80-100); Mean Platelet Volume 8.9 fL (7.4-10.4); Platelet Count 166 K/uL (130-400); RDW Coefficient of Variation 14.3 % (11.5-14.5); RDW Standard Deviation 50.7 fL (36.4-46.3); Red Blood Count 3.67 M/uL (4.2-5.4); White Blood Count 8.85 K/uL (4.8-10.8)
[2020-03-01 09:35] LABS: BUN Creatinine Ratio 24.7 (10-20); Calcium 8.5 mg/dl (8.5-10.1); Creatinine Clr Calc Pharmacy 22.4 ml/min; Est GFR (African American) 35.4; Est GFR (Non-African American) 30.5; Potassium 4.6 mmol/L (3.5-5.1)
--- NOTE | 2020-03-01 09:54 | Hospitalist Progress Note ---
Date of Service March 01, 2020 Assessment & Plan (1) Intertrochanteric fracture of right hip: * Patient admitted for the geriatric fracture program after x-ray revealed a mildly comminuted and displaced intertrochanteric right hip fracture. ER did phone Dr. Prather who accepted the patient for surgical correction the exact timing of this correction is not clear as mentioned in the HPI there is some concern the patient may have an allergy to implantable metal this could or could not be nickel this was communicated to orthopedic surgeon were attempting to get records from [facility] for previous surgery she is obviously tolerated spinal surgery as she has implanted fix of hardware in her back * CXR without acute process. EKG unremarkable * Orthopedics consulted * NPO for R long trok nailing with Dr. 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 Hematoma noted to R hip region on exam * ASA held for OR today, utilizing SCDs * Ordered vitamin D level -- low at 24.9. On 1000 units daily --> will increase. Initially Ca 10.3 on admission, but improved to 8.5 with IVF. Albumin 3.0. * -- will increase oral supplementation Vit D (2) Stage III chronic kidney disease: * We have no old records here patient's kidney disease seems to be stage III as she states. Followed locally by her PCP but unaware of her baseline Cr values * IVF as above -- Cr unchanged * BMP in AM (3) Hypothyroidism: * TSH with AM labs * Continue [employer] Synthroid 50 mcg a day (4) COPD (chronic obstructive pulmonary disease): * Patient takes daily Spiriva and as needed albuterol * 94% on 2L as was 90% on RA. Lungs sound clear --> patient denies hx of sleep apnea/CHF although does endorse she sleeps with a raised bed. No ECHO in system. No murmur heard on examination. Patient appears euvolemic on examination. CXR with heart size upper limits of normal. Could consider ECHO (5) Hypertension: * HTN * Stable * BP currently 132/73 -- will hold losartan and resume in AM if BP tolerates and Cr stable (6) Dyslipidemia: * Continue crestor 20mg once taking PO (7) DVT prophylaxis: * SCDs * Chemoprophylaxis per orthopedics following procedure Dispo: OR today with Dr. Mc Admission and Anticipated Discharge Date Admission Date: February 29, 2020 Supervising Physician Co-Signing Physician Notes PA Supervision Note: I did not personally see or examine the patient today, but I verified all rolon points of LEENA Watts's assessment and plan with the following exceptions/additions: None Subjective Patient evaluated this morning. Pain controlled with ordered medications although is worsened significantly with any movement. Tender to the touch and already with hematoma. Discussed with CM this morning about [facility] at discharge as she lives in apartment [facility] by herself and moved from [place] 4 years ago and has heard good things from others in the complex. Hx cdiff in past x 2 requiring fecal transplant in [place]. Told to avoid all abx unless emergency. Recent eye infection after injection with Dr. Hung? and is still on every other day drops that she did receive this morning. Spoke with her son who lives in [place] this morning and denies needing to call for update. Plans for OR soon for repair of her R hip. Review of Systems Review of Systems: All systems reviewed & are unremarkable except as noted in HPI & below Physical Exam Constitutional: WD/WN, vitals as above cooperative; no acute distress Eyes: + anicteric sclerae and PERRL Neck: normal visual inspection Respiratory: normal respiratory effort, lungs clear to auscultation 94% on 2L Cardiovascular: RRR, no murmur, no edema Gastrointestinal (Abdomen): normal bowel sounds, soft, nontender, no hepatosplenomegaly Musculoskeletal: right leg shortened/externally rotated. ecchymosis/hematoma to R lateral thigh/hip no ROM performed at this time able to plantar flex/dorsiflex without issues calves non-tender NVI Neurologic: patellar DTR's 2+ bilat, sensation intact and PERRL, EOMI, accommodation nl, no face palsy, no dysarthria Psychiatric: A+Ox3, euthymic affect Genitourinary: iniguez draining yellow urine Lymphatic: no cervical or axillary lymphadenopathy Results & Data Results & Data ([facility]) Vital Signs (Past 12 Hours) Vital Signs Temp Pulse Resp BP Pulse Ox 03/01/20 07:52 36.8 C 94 H 16 132/73 94 02/29/20 23:40 37.0 C 89 14 113/66 90 Laboratory Results 03/01/20 03/01/20 03/01/20 Range/Units 09:14 09:14 08:22 WBC (4.8-10.8) K/uL RBC (4.2-5.4) M/uL Hgb (12.0-16.0) g/dL Hct (37-47) % MCV (80-100) fL MCH (25-34) pg MCHC (32-36) g/dL RDW Std Deviation (36.4-46.3) fL RDW Coeff of Nuris (11.5-14.5) % Plt Count (130-400) K/uL MPV (7.4-10.4) fL PT INR APTT PTT Ratio Sodium 138 (136-145) mmol/L Potassium 4.6 (3.5-5.1) mmol/L Chloride 107 (98-107) mmol/L Carbon Dioxide 25 (21-32) mmol/L Anion Gap 6.0 (3-11) BUN 38 H (7-18) mg/dl Creatinine 1.52 H (0.6-1.2) mg/dl Est Cr Clr Drug Dosing 22.4 ml/min Est GFR ( Amer) 35.4 Est GFR (Non-Af Amer) 30.5 BUN/Creatinine Ratio 24.7 H (10-20) Glucose 104 H (70-99) mg/dl Calcium 8.5 D (8.5-10.1) mg/dl Total Bilirubin 0.6 (0.2-1) mg/dl Direct Bilirubin 0.2 (0-0.2) mg/dl AST 17 (15-37) U/L ALT 26 (12-78) U/L Alkaline Phosphatase 51 (45-117) U/L Total Protein 5.8 L (6.4-8.2) gm/dl Albumin 3.0 L (3.4-5.0) gm/dl 25-OH Vitamin D Total 24.9 L (30-100) ng/ml Urine Color Urine Appearance (Clear) Urine pH (4.5-7.5) Ur Specific Lund (1.000-1.030) Urine Protein (Negative) Urine Glucose (UA) (Negative) Urine Ketones (Negative) Urine Blood (Negative) Urine Nitrite (Negative) Urine Bilirubin (Negative) Urine Urobilinogen (Negative) Ur Leukocyte Esterase (Negative) Nasal Screen MRSA (PCR) (Negative) COVID-19 Eval Order SARS-CoV-2, RNA, NAAT (NEGATIVE) Blood Type Antibody Screen 03/01/20 02/29/20 02/29/20 Range/Units 08:22 14:21 13:54 WBC 8.85 (4.8-10.8) K/uL RBC 3.67 L (4.2-5.4) M/uL Hgb 11.2 L D (12.0-16.0) g/dL Hct 35.3 L (37-47) % MCV 96.2 (80-100) fL MCH 30.5 (25-34) pg MCHC 31.7 L (32-36) g/dL RDW Std Deviation 50.7 H (36.4-46.3) fL RDW Coeff of Nuris 14.3 (11.5-14.5) % Plt Count 166 (130-400) K/uL MPV 8.9 (7.4-10.4) fL PT INR APTT PTT Ratio Sodium (136-145) mmol/L Potassium (3.5-5.1) mmol/L Chloride (98-107) mmol/L Carbon Dioxide (21-32) mmol/L Anion Gap (3-11) BUN (7-18) mg/dl Creatinine (0.6-1.2) mg/dl Est Cr Clr Drug Dosing ml/min Est GFR ( Amer) Est GFR (Non-Af Amer) BUN/Creatinine Ratio (10-20) Glucose (70-99) mg/dl Calcium (8.5-10.1) mg/dl Total Bilirubin (0.2-1) mg/dl Direct Bilirubin (0-0.2) mg/dl AST (15-37) U/L ALT (12-78) U/L Alkaline Phosphatase (45-117) U/L Total Protein (6.4-8.2) gm/dl Albumin (3.4-5.0) gm/dl 25-OH Vitamin D Total (30-100) ng/ml Urine Color Urine Appearance (Clear) Urine pH (4.5-7.5) Ur Specific Lund (1.000-1.030) Urine Protein (Negative) Urine Glucose (UA) (Negative) Urine Ketones (Negative) Urine Blood (Negative) Urine Nitrite (Negative) Urine Bilirubin (Negative) Urine Urobilinogen (Negative) Ur Leukocyte Esterase (Negative) Nasal Screen MRSA (PCR) Positive A (Negative) COVID-19 Eval Order SARS-CoV-2, RNA, NAAT NEGATIVE (NEGATIVE) Blood Type Antibody Screen 02/29/20 02/29/20 02/29/20 Range/Units 13:54 12:51 11:41 WBC (4.8-10.8) K/uL RBC (4.2-5.4) M/uL Hgb (12.0-16.0) g/dL Hct (37-47) % MCV (80-100) fL MCH (25-34) pg MCHC (32-36) g/dL RDW Std Deviation (36.4-46.3) fL RDW Coeff of Nuris (11.5-14.5) % Plt Count (130-400) K/uL MPV (7.4-10.4) fL PT 10.1 INR 1.0 APTT 26.8 PTT Ratio 1.0 Sodium (136-145) mmol/L Potassium (3.5-5.1) mmol/L Chloride (98-107) mmol/L Carbon Dioxide (21-32) mmol/L Anion Gap (3-11) BUN (7-18) mg/dl Creatinine (0.6-1.2) mg/dl Est Cr Clr Drug Dosing ml/min Est GFR ( Amer) Est GFR (Non-Af Amer) BUN/Creatinine Ratio (10-20) Glucose (70-99) mg/dl Calcium (8.5-10.1) mg/dl Total Bilirubin (0.2-1) mg/dl Direct Bilirubin (0-0.2) mg/dl AST (15-37) U/L ALT (12-78) U/L Alkaline Phosphatase (45-117) U/L Total Protein (6.4-8.2) gm/dl Albumin (3.4-5.0) gm/dl 25-OH Vitamin D Total (30-100) ng/ml Urine Color Yellow Urine Appearance Clear (Clear) Urine pH 7.0 (4.5-7.5) Ur Specific Lund 1.015 (1.000-1.030) Urine Protein Negative (Negative) Urine Glucose (UA) Negative (Negative) Urine Ketones Negative (Negative) Urine Blood Negative (Negative) Urine Nitrite Negative (Negative) Urine Bilirubin Negative (Negative) Urine Urobilinogen Negative (Negative) Ur Leukocyte Esterase Negative (Negative) Nasal Screen MRSA (PCR) (Negative) COVID-19 Eval [facility] SARS-CoV-2, RNA, NAAT (NEGATIVE) Blood Type Antibody Screen 02/29/20 02/29/20 02/29/20 Range/Units 10:46 10:46 10:46 WBC (4.8-10.8) K/uL RBC (4.2-5.4) M/uL Hgb (12.0-16.0) g/dL Hct (37-47) % MCV (80-100) fL MCH (25-34) pg MCHC (32-36) g/dL RDW Std Deviation (36.4-46.3) fL RDW Coeff of Nuris (11.5-14.5) % Plt Count (130-400) K/uL MPV (7.4-10.4) fL PT Cancelled INR Cancelled APTT Cancelled PTT Ratio Cancelled Sodium 140 (136-145) mmol/L Potassium 4.3 (3.5-5.1) mmol/L Chloride 107 (98-107) mmol/L Carbon Dioxide 29 (21-32) mmol/L Anion Gap 4.0 (3-11) BUN 38 H (7-18) mg/dl Creatinine 1.51 H (0.6-1.2) mg/dl Est Cr Clr Drug Dosing 22.2 ml/min Est GFR ( Amer) 35.6 Est GFR (Non-Af Amer) 30.8 BUN/Creatinine Ratio 24.9 H (10-20) Glucose 113 H (70-99) mg/dl Calcium 10.3 H (8.5-10.1) mg/dl Total Bilirubin (0.2-1) mg/dl Direct Bilirubin (0-0.2) mg/dl AST (15-37) U/L ALT (12-78) U/L Alkaline Phosphatase (45-117) U/L Total Protein (6.4-8.2) gm/dl Albumin (3.4-5.0) gm/dl 25-OH Vitamin D Total (30-100) ng/ml Urine Color Urine Appearance (Clear) Urine pH (4.5-7.5) Ur Specific Lund (1.000-1.030) Urine Protein (Negative) Urine Glucose (UA) (Negative) Urine Ketones (Negative) Urine Blood (Negative) Urine Nitrite (Negative) Urine Bilirubin (Negative) Urine Urobilinogen (Negative) Ur Leukocyte Esterase (Negative) Nasal Screen MRSA (PCR) (Negative) COVID-19 Eval Order SARS-CoV-2, RNA, NAAT (NEGATIVE) Blood Type O Positive Antibody Screen NEGATIVE PG Care Time/CCT Total # of Minutes Spent Total Time Spent with Patient: Total time spent is greater than 50% in coordination of care (as documented) at patient's floor/unit and/or counseling patient: Coding Level of Care Code 57251 Subseq Hosp Care Lvl 3 Diagnoses Intertrochanteric fracture of right hip S72.141A Encounter type: initial encounter Fracture alignment: displaced Fracture type: closed Stage III chronic kidney disease N18.3 Hypothyroidism E03.9 COPD (chronic obstructive pulmonary disease) J44.9 Hypertension I10 Dyslipidemia E78.5 DVT prophylaxis Z29.9 (1) Intertrochanteric fracture of right hip Encounter type: initial encounter Fracture alignment: displaced Fracture type: closed Qualified Code(s): S72.141A - Displaced intertrochanteric fracture of right femur, initial encounter for closed fracture
[2020-03-01 10:10] LABS: Bilirubin Direct 0.2 mg/dl (0-0.2); Bilirubin,Total 0.6 mg/dl (0.2-1); Total Protein 5.8 gm/dl (6.4-8.2)
--- NOTE | 2020-03-01 13:00 | Orthopedic Progress Note ---
Date of Service March 01, 2020 Assessment & Plan (1) Intertrochanteric fracture of right hip: We will proceed with an IM nail of her right hip. She has been n.p.o. She understands the risks, benefits, and alternatives to the procedure and is elected to proceed. Questions were answered at bedside today. Consents have been signed. Present on Admission?: Yes Admission and Anticipated Discharge Date Admission Date: February 29, 2020 Giovanni Verdin was seen and examined at bedside this morning. She has been bedrest since yesterday. She is ready to proceed with an IM nail of her right hip today. She had no new complaints overnight. Physical Exam Physical Exam: On physical examination of the right leg, the right leg is shortened and externally rotated. She is neurovascularly intact. There is a well-healed incision from a previous surgery on her right hip. She has significant pain with logrolling of the right hip. Results & Data ([facility]) Vital Signs (Past 12 Hours) Vital Signs Temp Pulse Resp BP Pulse Ox 03/01/20 07:52 36.8 C 94 H 16 132/73 94 PG Care Time/CCT Total # of Minutes Spent Total Time Spent with Patient: Total time spent is greater than 50% in coordination of care (as documented) at patient's floor/unit and/or counseling patient: Coding Level of Care Code 68733 Subseq Hosp Care Lvl 2 Diagnoses Intertrochanteric fracture of right hip S72.141A Encounter type: initial encounter Fracture alignment: displaced Fracture type: closed (1) Intertrochanteric fracture of right hip Encounter type: initial encounter Fracture alignment: displaced Fracture type: closed Qualified Code(s): S72.141A - Displaced intertrochanteric fracture of right femur, initial encounter for closed fracture
[2020-03-01] MEDS ORDERED: MIDAZOLAM HCL 1 MG/ML 2ML VIAL ONE (13:38)
[2020-03-01] MEDS ORDERED: PROPOFOL IV EMULSION 10 MG/ML 20 ML VIAL IV ONE (13:38)
[2020-03-01] MEDS ORDERED: fentaNYL citrate 100 MCG/2 ML VIAL ONE (13:38)
[2020-03-01] MEDS ORDERED: ONDANSETRON INJ 2 MG/ML 2 ML VIAL IV PRN (14:00)
[2020-03-01] MEDS ORDERED: ATROPINE SULFATE 0.1 MG/ML 10ML SYR IV PRN (14:00)
[2020-03-01] MEDS ORDERED: BUPIVACAINE/EPINEPHRINE 0.25% 1:200,000 30 ML VIAL ONE (14:01)
[2020-03-01] MEDS ORDERED: ROCURONIUM BROMIDE 10 MG/ML 5 ML VIAL IV ONE (14:50)
[2020-03-01] MEDS ORDERED: ONDANSETRON INJ 2 MG/ML 2 ML VIAL ONE (14:50)
[2020-03-01] MEDS ORDERED: GLYCOPYRROLATE 0.2 MG/ML VIAL ONE (14:50)
[2020-03-01] MEDS ORDERED: ePHEDrine sulfate 50 MG/ML SYR ONE (14:50)
[2020-03-01] MEDS ORDERED: PHENYLEPHRINE 100MCG/ML 5ML SYR ONE (14:50)
[2020-03-01] MEDS ORDERED: LIDOCAINE HCL 2% 2 ML VIAL/AMP(20MG/ML) INFIL ONE (14:50)
[2020-03-01] MEDS ORDERED: NEOSTIGMINE METHYLSULFATE 5 MG/5 ML SYR ONE (14:50)
--- NOTE | 2020-03-01 15:31 | Operative Report ---
PG Post Operative Report Pre & Post Diagnosis Operation Date: 03/01/20 10:10 Pre-Op Diagnosis: Right Intertrochanteric Hip Fracture Post-Op Diagnosis: Right Intertrochanteric Hip Fracture I identified the patient and participated in the time-out.: Yes Procedure Operation Date: 03/01/20 10:10 Actual Procedures p Intramedullary Nail Right Hip(Right) - Mervin Mc DO Surgeon Mervin Mc, Adult Educator Mervin Felton PAC Estimated Blood Loss 50 Findings Consistent with Post-Op Diagnosis Specimens None Complications none Disposition Disposition: Recovery Room Indications Velvet is a pleasant 89-year-old female who fell yesterday sustaining a right intertrochanteric hip fracture. She came to mount in the emergency room where radiographs confirmed the diagnosis. She was admitted to the medicine team. Orthopedics was consulted. After discussions at bedside, she elected proceed with an IM nail of the right hip. Description of Procedure On March 01, 2020 she was brought down from her hospital room to the preoperative holding area. The operative extremity was identified and signed. She is given a preoperative antibiotic. She was taken back to the operating room and laid on the table in supine position. She was put under general anesthesia. Her right leg was brought out to traction on a fracture table. X- rays were taken to confirm near anatomic alignment of the fracture. The right hip was then prepped and draped in sterile fashion. A timeout was done. The patient and the operative extremity was properly identified. A longitudinal incision was made just superior to the greater trochanter. Dissection was taken down through the fascia. A guidepin was placed at the tip of the greater trochanter and advanced down the femoral shaft. Orthogonal fluoroscopic images were used to confirm appropriate alignment of the guidepin. A 17 mm opening reamer was then passed through the greater trochanter. A Synthes short TFN nail was then impacted into place. Appropriate placement was checked under fluoroscopy. A lateral incision was then made. An outrigger was placed off the nail and a cannula was advanced to the lateral cortex of the femur for the helical blade. A guidepin was then placed up into the center center position of the femoral head. Appropriate position was checked under fluoroscopy. The helical blade measured to be 85 mm. The lateral cortex was then drilled and the helical blade was impacted into place. The plate was then locked and the fracture was compressed. A cannula was then advanced from the distal locking screw. A drill was passed through the diaphysis of the femur. The screw measured to be 42 mm. A 42 mm locking screw was then placed. I was able to get excellent purchase. The wounds were then irrigated. The outrigger was removed. Final fluoroscopic images showed near anatomic alignment. The deep fascial layer was closed with #1 Vicryl suture. Skin was closed with 2-0 Vicryl and ralf. She was then placed in a soft dressing. She was then extubated and transferred to the hospital bed. She was taken to the postanesthesia care unit in stable condition. She tolerated the procedure well. Mervin Felton PA-C, was present for the entire procedure. He was critical for patient positioning, prepping, draping, retraction exposure, wound closure and application of sterile dressing. I attest to the content of the Intraoperative Record and any orders documented therein. Any exceptions are noted below.
--- NOTE | 2020-03-01 15:43 | Fluoroscopy Report ---
FL hip RT 2-3V CLINICAL HISTORY: RT LONG TROCH NAIL COMPARISON STUDY: 02/29/2020 FLUOROSCOPY TIME: 67 seconds. NUMBER OF FLUOROSCOPIC IMAGES: 4 FINDINGS: 4 intraprocedural fluoroscopic spot images demonstrate internal fixation of an intertrochan teric right hip fracture with a femoral neck nail and interlocking medullary lesa. IMPRESSION: Internally fixated intertrochanteric right hip fracture. ACT 112: Negative or not required by law. Electronically signed by: Nas Fiore M.D. 03/01/2020 3:42 PM
[2020-03-01] MEDS: HYDROmorphone INJ 1 MG/ML SYRINGE IV PRN ×4 (16:02→16:33)
--- NOTE | 2020-03-01 16:22 | XRay Report ---
XR hip RT min 2V CLINICAL HISTORY: Hip fracture. Postoperative study COMPARISON: 02/29/2020 DISCUSSION: There has been interval internal fixation of the intertrochanteric right hip fracture wit h a femoral neck nail and interlocking medullary lesa. Alignment appears satisfactory. There are overl srini skin ralf. There is gas present within the soft tissues consistent with recent surgery IMPRESSION: Internally fixated intertrochanteric right hip fracture. ACT 112: Negative or not required by law. Electronically signed by: Nas Fiore M.D. 03/01/2020 4:21 PM
--- NOTE | 2020-03-01 16:25 | Anesthesiology Progress Note ---
Date of Service March 01, 2020 Anesthesia Post Procedure Vital Signs Vital Signs: Temp Pulse Resp BP Pulse Ox 03/01/20 16:15 91 H 18 156/99 H 92 03/01/20 16:05 87 18 159/60 H 95 03/01/20 15:55 106 H 18 139/86 96 03/01/20 15:49 37.0 C 111 H 18 161/80 H 98 03/01/20 13:45 36.7 C 83 18 158/65 H 98 03/01/20 07:52 36.8 C 94 H 16 132/73 94 02/29/20 23:40 37.0 C 89 14 113/66 90 Pain Intensity Right Hip: Pain Intensity: 6 Transfer of Care Handoff Completed per policy Notes Mental Status: alert / awake / arousable Patient Amnestic to Procedure: Yes Nausea / Vomiting: adequately controlled Pain: adequately controlled Airway Patency, RR, SpO2: stable & adequate BP & HR: stable & adequate Hydration State: stable & adequate Anesthetic Complications: no major complications apparent
[2020-03-01] MEDS ORDERED: HYDROmorphone INJ 0.5 MG/0.5 ML SYR IV PRN (17:09)
[2020-03-01] MEDS ORDERED: NALOXONE HCL 0.4 MG/1 ML VIAL/CARP IV PRN (17:09)
[2020-03-01] MEDS: ENOXAPARIN INJ 30 MG/0.3 ML SYR SQ SCH ×2 (21:59→22:11)
[2020-03-01] MEDS: ceFAZolin 1000MG 1,000 MG/7.5 ML SYR IV SCH (21:59)
[2020-03-01] MEDS ORDERED: ENOXAPARIN INJ 40 MG/0.4 ML SYR SQ SCH (22:00)
[2020-03-01] MEDS: oxyCODONE HCL IR 5 MG TAB (IMMEDIATE RELEASE) PO PRN (22:02)
[2020-03-02] MEDS: LEVOTHYROXINE SODIUM 50 MCG TABLET PO SCH (06:21)
[2020-03-02] MEDS: ceFAZolin 1000MG 1,000 MG/7.5 ML SYR IV SCH (06:22)
[2020-03-02] MEDS: oxyCODONE HCL IR 5 MG TAB (IMMEDIATE RELEASE) PO PRN (06:27)
[2020-03-02 07:06] LABS: Eosinophils # (auto) 0.03 K/uL (0-0.5); Eosinophils % (auto) 0.3 %; Hematocrit (blood only) 31.6 % (37-47); Hemoglobin 9.7 g/dL (12.0-16.0); Immature Granulocytes # (auto) 0.04 K/uL (0.00-0.02); Immature Granulocytes % (auto) 0.4 %; Lymphocytes # (auto) 1.28 K/uL (1.2-3.4); Lymphocytes % (auto) 13.1 %; Mean Corpuscular Hemoglobin 29.9 pg (25-34); Mean Corpuscular Hgb Conc 30.7 g/dL (32-36); Mean Corpuscular Volume 97.5 fL (80-100); Mean Platelet Volume 9.2 fL (7.4-10.4); Monocytes # (auto) 0.75 K/uL (0.11-0.59); Monocytes % (auto) 7.7 %; Neutrophils # (auto) 7.69 K/uL (1.4-6.5); Neutrophils % (auto) 78.5 %; Platelet Count 183 K/uL (130-400); RDW Coefficient of Variation 14.1 % (11.5-14.5); RDW Standard Deviation 50.8 fL (36.4-46.3); Red Blood Count 3.24 M/uL (4.2-5.4); White Blood Count 9.79 K/uL (4.8-10.8)
--- NOTE | 2020-03-02 07:06 | XRay Report ---
XR chest 1V portable HISTORY: 89 years-old Female Hypoxia acute hypoxia COMPARISON: Chest radiograph 02/29/2020 TECHNIQUE: Portable AP view of the chest FINDINGS: Cardiac silhouette is mildly enlarged, unchanged. Calcified plaque of the thoracic aortic arch. Mild chronic interstitial coarsening. No pneumothorax, pleural effusion, airspace consolidation or overt p ulmonary edema. Mild subsegmental bibasilar opacities suggestive of atelectasis. Degenerative changes of the shoulders and spine. Healed remote fracture deformity of the proximal right humerus. IMPRESSION: No acute process. ACT 112: Negative or not required by law. The above report was generated using voice recognition software. It may contain grammatical, syntax o r spelling errors. Electronically signed by: Serjio Kee M.D. 03/02/2020 7:05 AM
[2020-03-02 07:37] LABS: BUN Creatinine Ratio 22.4 (10-20); Calcium 7.7 mg/dl (8.5-10.1); Creatinine Clr Calc Pharmacy 23.7 ml/min; Est GFR (African American) 37.7; Est GFR (Non-African American) 32.6; Potassium 4.3 mmol/L (3.5-5.1)
[2020-03-02] MEDS ORDERED: ALBUTEROL 0.083% NEBU SOLN 3 ML VIAL NEB STA (08:49)
[2020-03-02] MEDS ORDERED: CHOLECALCIFEROL 1,000 UNITS 25 MCG TAB PO SCH (09:00)
[2020-03-02] MEDS ORDERED: LOSARTAN POTASSIUM 50 MG TAB PO SCH (09:00)
[2020-03-02] MEDS ORDERED: diphenhydrAMINE 50 MG/ML VIAL ONE (09:01)
[2020-03-02] MEDS ORDERED: diphenhydrAMINE 50 MG/ML VIAL IV STA (09:04)
[2020-03-02] MEDS ORDERED: MECLIZINE 12.5 MG TAB PO PRN (09:07)
[2020-03-02] MEDS: UMECLIDINIUM BROMIDE 62.5MCG/BLISTER 7 PUFFS/INHALER INH SCH (09:12)
[2020-03-02] MEDS ORDERED: hydrALAZINE HCL 20 MG/ML VIAL IV PRN (09:20)
[2020-03-02] MEDS: MAGNESIUM OXIDE 400 MG TAB PO SCH (09:21)
[2020-03-02] MEDS: ROSUVASTATIN CALCIUM 20 MG TAB PO SCH (09:26)
[2020-03-02] MEDS: GABAPENTIN 300 MG CAP PO SCH ×4 (09:26→21:30)
[2020-03-02] MEDS: CHOLECALCIFEROL 1,000 UNITS 25 MCG TAB PO SCH (09:26)
[2020-03-02] MEDS: DOCUSATE SODIUM 100 MG CAP PO SCH ×2 (09:27→20:19)
[2020-03-02] MEDS ORDERED: OPTIRAY 320 125ml IV ONE (09:53)
--- NOTE | 2020-03-02 10:08 | CT Scan Report ---
CT angio chest PE protocol CT DOSE: 356.91 mGy.cm HISTORY: 89 years-old Female with PE. Acute atypical chest pain TECHNIQUE: Multiple CTA images of the chest were obtained after the intravenous administration of 114 ml Optiray 320. Coronal and sagittal MIPS were obtained from the axial data set and were submitted for review. All measurements were obtained according to NASCET criteria. A dose lowering technique w as utilized adhering to the principles of ALARA. COMPARISON: Chest radiograph of same day FINDINGS: CTA: Moderate cardiomegaly. No pericardial effusion. Mild to moderate coronary artery calcifications. No t horacic aortic aneurysm. Moderate mixed plaque of the thoracic aortic arch. Patency of the imaged gre at vessels. Mild kinking of the mid subclavian arteries. The pulmonary arterial tree is opacified to level of the segmental branches. Respiratory motion limits evaluation of the lung bases. No filling d efects identified to suggest thromboembolic disease. CT CHEST: No thyroid nodule. No adenopathy. Trace pleural effusions. Biapical pleural-parenchymal scarring. Mil d to moderate emphysema. Subsegmental bibasilar atelectasis. Dependent groundglass opacities are note d asymmetrically within the right upper lobe. Minimal patchy groundglass opacities of the superior se gment right lower lobe. 3 mm solid nodule of the right lower lobe superior segment on image 126 serie s 4. Central airways are patent. Mild nonspecific distal esophageal wall thickening. Cholecystectomy. Soft tissues are unremarkable. D emineralized appearance of the bones. Severe right glenohumeral osteoarthritis with remote right prox imal humeral fracture deformity. Remote right-sided rib fractures. Likely remote superior endplate co mpression deformity at T7 and T11. IMPRESSION: 1. Cardiomegaly without evidence of pulmonary thromboembolic disease or acute aortic pathology. 2. Emphysema with trace pleural effusions. 3. Asymmetric groundglass opacities of the right upper lobe are noted with a few patchy groundglass d ensities of the superior segment right lower lobe. Correlate clinically to exclude a mild nonspecific infectious or inflammatory pneumonitis. 4. 3 mm solid nodule of the superior segment right lower lobe, likely benign. 5. No adenopathy. 6. Cholecystectomy. Please refer to below summary of Fleischner criteria recommendations for follow-up of incidental CT n jaqueline Johnson, Guidelines for management of small pulmonary nodules detected on CT scans: A sta tement from the Fleischner Society, Radiology 237: [phone].) SOLID NODULES Solitary nodule size: <6 mm * Low risk patients: no follow-up needed * high risk patients: optional CT at 12 months Note: newly detected indeterminate nodule in persons 35 years of age or older. * Low risk patients: minimal or absent history of smoking and/or other known risk factors * high risk patients: history of smoking or of other known risk factors (e.g. first degree relative with lung cancer, or exposure to asbestos, radon, uranium) * if a nodule up to 8 mm is partly solid or is ground glass further follow-up is required after 24 m onths to exclude possible slow growing adenocarcinoma (LEIDY) ACT 112: Negative or not required by law. The above report was generated using voice recognition software. It may contain grammatical, syntax o r spelling errors. Electronically signed by: Serjio Kee M.D. 03/02/2020 10:07 AM
--- NOTE | 2020-03-02 10:20 | Hospitalist Progress Note ---
Date of Service March 02, 2020 Assessment & Plan (1) Shortness of breath: * Reported this morning -- dropped to 87% on RA. Patient with hx COPD and utilizes Spiriva daily in addition to albuterol HFA prn * CXR negative for acute process * CT chest NEGATIVE for PE * EKG reviewed, similar to prior. Trop negative. Trend * Transferred to [facility] for closer monitoring -- has been NSR with PACs * Albuterol neb prn -- changed to scheduled as she had not gotten dose since this morning * Currently 92% on 2L NC * Continue incentive spirometer * Will order small dose prednisone to see if any additional benefit * Continue to monitor (2) Intertrochanteric fracture of right hip: * Patient admitted for the geriatric fracture program after x-ray revealed a mildly comminuted and displaced intertrochanteric right hip fracture. ER did phone Dr. Prather who accepted the patient for surgical correction the exact timing of this correction is not clear as mentioned in the HPI there is some concern the patient may have an allergy to implantable metal this could or could not be nickel this was communicated to orthopedic surgeon were attempting to get records from [facility] for previous surgery she is obviously tolerated spinal surgery as she has implanted fix of hardware in her back * CXR without acute process. EKG unremarkable * POD #1 s/p R long trok nailing with Dr. Mc. EBL 50cc. 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 On 1000 units daily --> will increase. Initially Ca 10.3 on admission, but improved with IVF * -- increased supplementation. PTH had been elevated in past appropriately for low Vit D (3) Stage III chronic kidney disease: * We have no old records here patient's kidney disease seems to be stage III as she states. Followed locally by her PCP but unaware of her baseline Cr values * IVF as above * Cr 1.44 * BMP in AM (4) Hypothyroidism: * TSH with AM labs * Continue [employer]ER[employer]IST Synthroid 50 mcg a day (5) COPD (chronic obstructive pulmonary disease): * Patient takes daily Spiriva and as needed albuterol --> ordered umeclidinium while inpatient and added albuterol nebs as above * 94% on 2L as was 90% on RA. Lungs sound clear --> patient denies hx of sleep apnea/CHF although does endorse she sleeps with a raised bed. No ECHO in system. No murmur heard on examination. Patient appears euvolemic on examination. CXR with heart size upper limits of normal. Could consider ECHO as an outpatient * See above under SOB (6) Hypertension: * Stable * BP currently 112/63 -- will continue to hold losartan for now and likely to resume in AM (7) Dyslipidemia: * Continue crestor 20mg once taking PO (8) Abnormality of esophagus: * Noted to have mild nonspecific thickening of the distal esophageal wall on CT scan * Recommend follow-up as an outpatient with GI for possible EGD (9) DVT prophylaxis: * SCDs * Chemoprophylaxis with Lovenox Admission and Anticipated Discharge Date Admission Date: February 29, 2020 Supervising Physician Co-Signing Physician Notes PA Supervision Note: I did not personally see or examine the patient today, but I verified all rolon points of LEENA Watts's assessment and plan with the following exceptions/additions: None Subjective Patient evaluated this morning after reported shortness of breath. Not able to discern if worse with deep breathing but nothing has made it better or worse since it started. No chest pain or radiating symptoms. Lasted approximately ten minutes. EKG obtained, similar to previous. CXR without acute process. Ordered CT chest to r/o PE given hip fx. She denies fever, chills, sputum production or cough but did not yet get her daily inhaler. Pain for her hip had been controlled with ordered medications. After treatment with her umeclidinium and albuterol nebulizer, shortness of breath improved. Decision made to transfer patient to telemetry floor for closer monitoring. Review of Systems Review of Systems: All systems reviewed & are unremarkable except as noted in HPI & below Physical Exam Constitutional: WD/WN, vitals as above + acute distress (shortness of breath reported); + uncomfortable Eyes: + anicteric sclerae and PERRL Neck: normal visual inspection Respiratory: normal respiratory effort, lungs clear to auscultation Auscultation: + wheezes (faint expiratory wheezing heard in posterior lung ang[place]) 92% on 2L Cardiovascular: Rate/Rhythm: + tachycardic Heart Sounds: no gallop, no murmur and no cardiac rub Gastrointestinal (Abdomen): normal bowel sounds, soft, nontender, no hepatosplenomegaly Musculoskeletal: R hip dressing c/d/i NVI pulses palpable and equal able to plantar flex/dorsiflex without issues calves non-tender Neurologic: moves all extremities and awake Psychiatric: Orientation: alert and oriented x 3 Genitourinary: iniguez draining yellow urine Lymphatic: no cervical or axillary lymphadenopathy Results & Data Results & Data ([facility]) Vital Signs (Past 12 Hours) Vital Signs Temp Pulse Pulse Resp BP BP Pulse Ox 03/02/20 09:18 93 H 16 138/80 99 03/02/20 09:06 88 20 99 03/02/20 08:50 36.9 C 108 H 24 184/80 H 100 03/02/20 07:05 36.5 C 90 20 155/73 H 99 03/02/20 03:23 36.7 C 89 16 133/69 97 03/01/20 23:20 36.9 C 92 H 16 137/75 98 Laboratory Results 03/02/20 03/02/20 03/02/20 Range/Units 15:05 06:37 06:37 WBC (4.8-10.8) K/uL RBC (4.2-5.4) M/uL Hgb (12.0-16.0) g/dL Hct (37-47) % MCV (80-100) fL MCH (25-34) pg MCHC (32-36) g/dL RDW Std Deviation (36.4-46.3) fL RDW Coeff of Nuris (11.5-14.5) % Plt Count (130-400) K/uL MPV (7.4-10.4) fL Immature Gran % (Auto) % Neut % (Auto) % Lymph % (Auto) % [place] % (Auto) % Eos % (Auto) % Baso % (Auto) % Neut # (Auto) (1.4-6.5) K/uL Lymph # (Auto) (1.2-3.4) K/uL [place] # (Auto) (0.11-0.59) K/uL Eos # (Auto) (0-0.5) K/uL Baso # (Auto) (0-0.2) K/uL Immature Gran # (Auto) (0.00-0.02) K/uL Sodium 139 (136-145) mmol/L Potassium 4.3 (3.5-5.1) mmol/L Chloride 108 H (98-107) mmol/L Carbon Dioxide 24 (21-32) mmol/L Anion Gap 7.0 (3-11) BUN 32 H (7-18) mg/dl Creatinine 1.44 H (0.6-1.2) mg/dl Est Cr Clr Drug Dosing 23.7 ml/min Est GFR ( Amer) 37.7 Est GFR (Non-Af Amer) 32.6 BUN/Creatinine Ratio 22.4 H (10-20) Glucose 120 H (70-99) mg/dl Calcium 7.7 L (8.5-10.1) mg/dl Troponin I < 0.015 < 0.015 (0-0.045) ng/ml 03/02/20 Range/Units 06:37 WBC 9.79 (4.8-10.8) K/uL RBC 3.24 L (4.2-5.4) M/uL Hgb 9.7 L (12.0-16.0) g/dL Hct 31.6 L (37-47) % MCV 97.5 (80-100) fL MCH 29.9 (25-34) pg MCHC 30.7 L (32-36) g/dL RDW Std Deviation 50.8 H (36.4-46.3) fL RDW Coeff of Nuris 14.1 (11.5-14.5) % Plt Count 183 (130-400) K/uL MPV 9.2 (7.4-10.4) fL Immature Gran % (Auto) 0.4 % Neut % (Auto) 78.5 % Lymph % (Auto) 13.1 % [place] % (Auto) 7.7 % Eos % (Auto) 0.3 % Baso % (Auto) 0.0 % Neut # (Auto) 7.69 H (1.4-6.5) K/uL Lymph # (Auto) 1.28 (1.2-3.4) K/uL [place] # (Auto) 0.75 H (0.11-0.59) K/uL Eos # (Auto) 0.03 (0-0.5) K/uL Baso # (Auto) 0.00 (0-0.2) K/uL Immature Gran # (Auto) 0.04 H (0.00-0.02) K/uL Sodium (136-145) mmol/L Potassium (3.5-5.1) mmol/L Chloride (98-107) mmol/L Carbon Dioxide (21-32) mmol/L Anion Gap (3-11) BUN (7-18) mg/dl Creatinine (0.6-1.2) mg/dl Est Cr Clr Drug Dosing ml/min Est GFR ( Amer) Est GFR (Non-Af Amer) BUN/Creatinine Ratio (10-20) Glucose (70-99) mg/dl Calcium (8.5-10.1) mg/dl Troponin I (0-0.045) ng/ml Diagnostic Findings CXR IMPRESSION: No acute process. Chest CTA PE protocol IMPRESSION: 1. Cardiomegaly without evidence of pulmonary thromboembolic disease or acute aortic pathology. 2. Emphysema with trace pleural effusions. 3. Asymmetric groundglass opacities of the right upper lobe are noted with a few patchy groundglass densities of the superior segment right lower lobe. Correlate clinically to exclude a mild nonspecific infectious or inflammatory pneumonitis. 4. 3 mm solid nodule of the superior segment right lower lobe, likely benign. 5. No adenopathy. 6. Cholecystectomy. Please refer to below summary of Fleischner criteria recommendations for follow- up of incidental CT nodules (Sabina Johnson, Guidelines for management of small pulmonary nodules detected on CT scans: A statement from the Fleischner Society, Radiology 237: [id number].) SOLID NODULES Solitary nodule size: <6 mm * Low risk patients: no follow-up needed * high risk patients: optional CT at 12 months Note: newly detected indeterminate nodule in persons 35 years of age or older. * Low risk patients: minimal or absent history of smoking and/or other known risk factors * high risk patients: history of smoking or of other known risk factors (e.g. first degree relative with lung cancer, or exposure to asbestos, radon, uranium) * if a nodule up to 8 mm is partly solid or is ground glass further follow-up is required after 24 months to exclude possible slow growing adenocarcinoma (LEIDY) ACT 112: Negative or not required by law. PG Care Time/CCT Total # of Minutes Spent Total Time Spent with Patient: Total time spent is greater than 50% in coordination of care (as documented) at patient's floor/unit and/or counseling patient: Coding Level of Care Code 99015 Subseq Hosp Care Lvl 3 Diagnoses Shortness of breath R06.02 Intertrochanteric fracture of right hip S72.141A Encounter type: initial encounter Fracture alignment: displaced Fracture type: closed Stage III chronic kidney disease N18.3 Hypothyroidism E03.9 COPD (chronic obstructive pulmonary disease) J44.9 Hypertension I10 Dyslipidemia E78.5 Abnormality of esophagus K22.9 DVT prophylaxis Z29.9 (1) Intertrochanteric fracture of right hip Encounter type: initial encounter Fracture alignment: displaced Fracture type: closed Qualified Code(s): S72.141A - Displaced intertrochanteric fracture of right femur, initial encounter for closed fracture
--- NOTE | 2020-03-02 11:00 | Electrocardiogram Report ---
Test Reason : Blood Pressure : / mmHG Vent. Rate : 099 BPM Atrial Rate : 099 BPM P-R Int : 152 ms QRS Dur : 080 ms QT Int : 350 ms P-R-T Axes : 045 -08 076 degrees QTc Int : 449 ms Sinus rhythm with occasional Premature ventricular complexes Otherwise normal ECG When compared with ECG of 29-FEB-2020 10:46, Premature ventricular complexes are now Present Confirmed by Last Valencia ([id number]) on 03/02/2020 11:00:39 AM Referred By: REFERRED SELF Confirmed By:Last Valencia
[2020-03-02] MEDS ORDERED: ALBUTEROL 0.083% NEBU SOLN 3 ML VIAL NEB PRN (14:52)
--- NOTE | 2020-03-02 16:25 | Orthopedic Progress Note ---
Date of Service March 02, 2020 Assessment & Plan (1) Intertrochanteric fracture of right hip: Overall she is doing well. She is not having too much pain in the right hip. We will keep her on Lovenox 40 mg for DVT prophylaxis. She can be weightbearing as tolerated on the right hip. She will be seen by physical therapy tomorrow. She is orthopedically stable for discharge when medically ready. She will follow-up with orthopedics in 2 weeks. Present on Admission?: Yes Admission and Anticipated Discharge Date Admission Date: February 29, 2020 Giovanni Verdin was seen and examined at bedside today. Overall she is doing fairly well. She has not been up and ambulating yet on her right hip. She is not having too much pain in her hip. She has no complaints. Physical Exam Physical Exam: On physical examination of right hip, the dressings are clean and dry. She has active dorsiflexion and plantarflexion of the right ankle. Sensation is intact throughout. Results & Data ([facility]) Vital Signs (Past 12 Hours) Vital Signs Temp Pulse Pulse Pulse Resp BP BP 03/02/20 15:59 93 H 03/02/20 15:41 36.4 C L 81 20 112/63 03/02/20 11:28 36.8 C 84 18 135/84 03/02/20 09:18 93 H 16 138/80 03/02/20 09:06 88 20 03/02/20 08:50 36.9 C 108 H 24 184/80 H 03/02/20 07:05 36.5 C 90 20 155/73 H Pulse Ox 03/02/20 15:59 03/02/20 15:41 92 03/02/20 11:28 100 03/02/20 09:18 99 03/02/20 09:06 99 03/02/20 08:50 100 03/02/20 07:05 99 Diagnostic Findings Postoperative x-rays of the right hip show the prosthesis to be in near anatomic alignment without any evidence of complication. PG Care Time/CCT Total # of Minutes Spent Total Time Spent with Patient: Total time spent is greater than 50% in coordination of care (as documented) at patient's floor/unit and/or counseling patient: Coding Level of Care Code None Diagnoses Intertrochanteric fracture of right hip S72.141A Encounter type: initial encounter Fracture alignment: displaced Fracture type: closed (1) Intertrochanteric fracture of right hip Encounter type: initial encounter Fracture alignment: displaced Fracture type: closed Qualified Code(s): S72.141A - Displaced intertrochanteric fracture of right femur, initial encounter for closed fracture
[2020-03-02] MEDS ORDERED: predniSONE 20 MG TAB PO STA (17:26)
[2020-03-02] MEDS: ALBUTEROL 0.083% NEBU SOLN 3 ML VIAL NEB SCH (19:24)
[2020-03-02] MEDS: traMADol HCL 50 MG TABLET PO PRN (20:09)
[2020-03-02] MEDS: ENOXAPARIN INJ 30 MG/0.3 ML SYR SQ SCH (21:31)
[2020-03-02 21:44] LABS: Magnesium 2.4 mg/dl (1.8-2.4); Troponin I < 0.015 ng/ml (0-0.045)
[2020-03-03] MEDS: ALBUTEROL 0.083% NEBU SOLN 3 ML VIAL NEB SCH ×2 (00:18→07:24)
[2020-03-03] MEDS: LEVOTHYROXINE SODIUM 50 MCG TABLET PO SCH (06:04)
[2020-03-03 06:57] LABS: Hematocrit (blood only) 25.2 % (37-47); Hemoglobin 8.2 g/dL (12.0-16.0); Mean Corpuscular Hemoglobin 30.7 pg (25-34); Mean Corpuscular Hgb Conc 32.5 g/dL (32-36); Mean Corpuscular Volume 94.4 fL (80-100); Platelet Count 162 K/uL (130-400); RDW Coefficient of Variation 13.9 % (11.5-14.5); Red Blood Count 2.67 M/uL (4.2-5.4); White Blood Count 7.15 K/uL (4.8-10.8)
[2020-03-03 07:24] LABS: Calcium 7.8 mg/dl (8.5-10.1); Creatinine Clr Calc Pharmacy 28.2 ml/min; Est GFR (African American) 43.6; Est GFR (Non-African American) 37.6; Potassium 4.6 mmol/L (3.5-5.1)
[2020-03-03 07:35] LABS: Thyroid Stimulating Hormone 1.41 uIu/ml (0.300-4.500)
[2020-03-03] MEDS: MAGNESIUM OXIDE 400 MG TAB PO SCH (07:48)
[2020-03-03] MEDS: ROSUVASTATIN CALCIUM 20 MG TAB PO SCH (07:48)
[2020-03-03] MEDS: CHOLECALCIFEROL 1,000 UNITS 25 MCG TAB PO SCH (07:48)
[2020-03-03] MEDS: GABAPENTIN 300 MG CAP PO SCH ×4 (07:49→21:15)
[2020-03-03] MEDS: DOCUSATE SODIUM 100 MG CAP PO SCH ×2 (07:49→21:15)
[2020-03-03] MEDS: UMECLIDINIUM BROMIDE 62.5MCG/BLISTER 7 PUFFS/INHALER INH SCH (07:49)
[2020-03-03] MEDS: prednisoLONE acetate 1% OP SUSP 5 ML BTL OPR SCH (07:49)
--- NOTE | 2020-03-03 08:07 | Orthopedic Progress Note ---
Date of Service March 03, 2020 Assessment & Plan (1) Intertrochanteric fracture of right hip: Overall she is improving. She was feeling a little bit dizzy and short of breath yesterday and was transferred to the PCU. CTA of her lungs were negative for PE. She was not seen by physical therapy. She is currently on Lovenox 30 mg subcu daily for DVT prophylaxis. She will need to continue this for about 4 weeks. She can be weightbearing as tolerated with physical therapy today. She is orthopedically stable for discharge when medically ready. She will follow-up with orthopedics in 2 weeks. Full discharge instructions were placed in the discharge summary. Present on Admission?: Yes Admission and Anticipated Discharge Date Admission Date: February 29, 2020 Giovanni Verdin was seen and examined at bedside this morning. Overall she is doing fairly well. She is not having too much pain in the right hip. She was able to get some sleep last night. She has no complaints. Physical Exam Physical Exam: On physical examination of the right hip, the dressings are clean and dry. Her leg lengths are equal. She has active dorsiflexion plantarflexion of the right ankle. Results & Data ([facility]) Vital Signs (Past 12 Hours) Vital Signs Temp Pulse Pulse Resp BP Pulse Ox 03/03/20 07:25 77 20 95 03/03/20 07:12 68 03/03/20 03:21 71 03/03/20 03:00 36.4 C L 78 20 132/69 96 03/03/20 00:18 79 16 97 03/02/20 23:00 36.7 C 72 20 145/71 H 97 PG Care Time/CCT Total # of Minutes Spent Total Time Spent with Patient: Total time spent is greater than 50% in coordination of care (as documented) at patient's floor/unit and/or counseling patient: Coding Level of Care Code None Diagnoses Intertrochanteric fracture of right hip S72.141A Encounter type: initial encounter Fracture alignment: displaced Fracture type: closed (1) Intertrochanteric fracture of right hip Encounter type: initial encounter Fracture alignment: displaced Fracture type: closed Qualified Code(s): S72.141A - Displaced intertrochanteric fracture of right femur, initial encounter for closed fracture
[2020-03-03] MEDS ORDERED: ALBUTEROL 0.083% NEBU SOLN 3 ML VIAL NEB PRN (08:35)
[2020-03-03] MEDS ORDERED: FUROSEMIDE 20 MG TAB PO ONE (08:38)
--- NOTE | 2020-03-03 09:57 | Hospitalist Progress Note ---
Date of Service March 03, 2020 Assessment & Plan (1) Intertrochanteric fracture of right hip: * Patient admitted for the geriatric fracture program after x-ray revealed a mildly comminuted and displaced intertrochanteric right hip fracture. ER did phone Dr. Prather who accepted the patient for surgical correction the exact timing of this correction is not clear as mentioned in the HPI there is some concern the patient may have an allergy to implantable metal this could or could not be nickel this was communicated to orthopedic surgeon were attempting to get records from [facility] for previous surgery she is obviously tolerated spinal surgery as she has implanted fix of hardware in her back * CXR without acute process. EKG unremarkable * POD #2 s/p R long trok nailing with Dr. Mc. EBL 50cc. 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 Plans for [facility] at discharge * Ordered vitamin D level -- low at 24.9. On 1000 units daily --> -- increased supplementation. PTH had been elevated in past appropriately for low Vit D * CBC in AM (2) Shortness of breath: * Reported morning of 03/02-- dropped to 87% on RA. Patient with hx COPD and utilizes Spiriva daily in addition to albuterol HFA prn * CXR negative for acute process * CT chest NEGATIVE for PE * EKG reviewed, similar to prior. Trop negative x3 * Transferred to [facility] for closer monitoring -- has been NSR with PACs. Will d/c telemetry monitoring * Albuterol neb prn -- changed to scheduled initially but back to prn dosing * 93% on RA * lungs clear to auscultation -- initially with crackles R base, resolved with deep cough * Continue incentive spirometer * Continue to monitor (3) Acute respiratory failure with hypoxia: * Requiring 2 L nasal cannula intermittently * CT angiogram negative for PE, with emphysematous changes, asymmetric groundglass opacities * Diuresing with Lasix * Continue bronchodilators * Wean off O2 as tolerated keep pulse ox greater than 92% (4) Stage III chronic kidney disease: * We have no old records here patient's kidney disease seems to be stage III as she states. Followed locally by her PCP but unaware of her baseline Cr values. (1.5 on admission) * IVF as above * Cr improved to 1.27 with dose of lasix 20mg IV x 1. Given additional dose 20mg PO today and will resume her usual spironolactone daily * BMP in AM (5) Hypothyroidism: * TSH with AM labs * Continue [employer] PH[employer]ICIAN Synthroid 50 mcg a day --> per account she is on increased dose but records show 112mcg daily -- will continue at 112mcg daily and have repeat TFT per pcp (6) COPD (chronic obstructive pulmonary disease): * Patient takes daily Spiriva and as needed albuterol --> ordered umeclidinium while inpatient and added albuterol nebs as above * See above under SOB * Lungs sound clear --> patient denies hx of sleep apnea/CHF although does endorse she sleeps with a raised bed. No ECHO in system. No murmur heard on examination. Patient appears euvolemic on examination today. CXR with heart size upper limits of normal. Could consider ECHO as an outpatient * See above under SOB (7) Hypertension: * Stable * BP currently 119/60 -- will continue to hold losartan for now and can resume in AM (8) Dyslipidemia: * Continue crestor 20mg once taking PO (9) Abnormality of esophagus: * Noted to have mild nonspecific thickening of the distal esophageal wall on CT scan * Recommend follow-up as an outpatient with GI for possible EGD (10) Acute blood loss anemia: * Hemoglobin dropped from 14 down to 8 since admission likely secondary to blood loss from fracture * Hemodynamically stable, no need for transfusion * Follow CBC in the morning (11) DVT prophylaxis: * SCDs * Chemoprophylaxis with Lovenox -- will need to be continued for 4 weeks post-op Dispo: [facility] on Thursday planned Admission and Anticipated Discharge Date Admission Date: February 29, 2020 Supervising Physician Co-Signing Physician Notes LEENA Supervision Note: I did not personally see or examine the patient today, but I verified all rolon points of LEENA Watts's assessment and plan with the following exceptions/additions: Notations made as above Subjective Patient evaluated this morning. Doing well but still with some pain to her right hip. Dressing looks good. No further shortness of breath and patient instructed that we will change her nebulizers to as needed and she may request if she has any symptoms. Plans for [facility] but will not have a bed until thursday. No fever, chill, chest pain, shortness of breath, cough, sputum production, abdominal pain, nausea, vomiting. She does have some pain to her lateral right ankle, and there are noted abrasions, likely from fall. Questions/concerns addressed at this time. She states she does believe she takes "140mcg" of her synthroid daily but discussed I will check with most recent rx and change accordingly. Per records, 112mcg daily and TSH wnl during admission. She also takes spironolactone daily for fluid and we will resume this medication as she had gotten a dose of lasix this morning. Review of Systems Review of Systems: All systems reviewed & are unremarkable except as noted in HPI & below Physical Exam Constitutional: WD/WN, vitals as above comfortable; no acute distress Eyes: + anicteric sclerae; no eyelid abnormality ENMT: mmm Neck: normal visual inspection Respiratory: normal respiratory effort, lungs clear to auscultation Auscultation: + diminished lung sounds; no wheezes Cardiovascular: RRR, no murmur, no edema Gastrointestinal (Abdomen): normal bowel sounds, soft, nontender, no hepatosplenomegaly Musculoskeletal: dressing to R hip c/d/i NVI strength 4/5 RLE, 5/5 LLE pulses weak but present abrasian present to lateral aspect R ankle, tender to touch Neurologic: moves all extremities and awake Psychiatric: Orientation: alert and oriented x 3 Genitourinary: iniguez draining yellow urine Lymphatic: no cervical or axillary lymphadenopathy Results & Data Results & Data ([facility]) Vital Signs (Past 12 Hours) Vital Signs Temp Pulse Pulse Resp BP Pulse Ox 03/03/20 07:25 77 20 95 03/03/20 07:18 36.5 C 77 18 135/68 99 03/03/20 07:12 68 03/03/20 03:21 71 03/03/20 03:00 36.4 C L 78 20 132/69 96 03/03/20 00:18 79 16 97 03/02/20 23:00 36.7 C 72 20 145/71 H 97 Laboratory Results 03/03/20 03/03/20 03/02/20 Range/Units 06:32 06:32 21:07 WBC 7.15 (4.8-10.8) K/uL RBC 2.67 L (4.2-5.4) M/uL Hgb 8.2 L (12.0-16.0) g/dL Hct 25.2 L (37-47) % MCV 94.4 (80-100) fL MCH 30.7 (25-34) pg MCHC 32.5 (32-36) g/dL RDW Std Deviation 48.0 H (36.4-46.3) fL RDW Coeff of Nuris 13.9 (11.5-14.5) % Plt Count 162 (130-400) K/uL MPV 9.0 (7.4-10.4) fL Sodium 135 L (136-145) mmol/L Potassium 4.6 (3.5-5.1) mmol/L Chloride 105 (98-107) mmol/L Carbon Dioxide 25 (21-32) mmol/L Anion Gap 5.0 (3-11) BUN 32 H (7-18) mg/dl Creatinine 1.27 H (0.6-1.2) mg/dl Est Cr Clr Drug Dosing 28.2 ml/min Est GFR ( Amer) 43.6 Est GFR (Non-Af Amer) 37.6 BUN/Creatinine Ratio 25.0 H (10-20) Glucose 182 H (70-99) mg/dl Calcium 7.8 L (8.5-10.1) mg/dl Magnesium 2.4 (1.8-2.4) mg/dl Troponin I < 0.015 (0-0.045) ng/ml TSH 1.410 (0.300-4.500) uIu/ml 03/02/20 Range/Units 15:05 WBC (4.8-10.8) K/uL RBC (4.2-5.4) M/uL Hgb (12.0-16.0) g/dL Hct (37-47) % MCV (80-100) fL MCH (25-34) pg MCHC (32-36) g/dL RDW Std Deviation (36.4-46.3) fL RDW Coeff of Nuris (11.5-14.5) % Plt Count (130-400) K/uL MPV (7.4-10.4) fL Sodium (136-145) mmol/L Potassium (3.5-5.1) mmol/L Chloride (98-107) mmol/L Carbon Dioxide (21-32) mmol/L Anion Gap (3-11) BUN (7-18) mg/dl Creatinine (0.6-1.2) mg/dl Est Cr Clr Drug Dosing ml/min Est GFR ( Amer) Est GFR (Non-Af Amer) BUN/Creatinine Ratio (10-20) Glucose (70-99) mg/dl Calcium (8.5-10.1) mg/dl Magnesium (1.8-2.4) mg/dl Troponin I < 0.015 (0-0.045) ng/ml TSH (0.300-4.500) uIu/ml PG Care Time/CCT Total # of Minutes Spent Total Time Spent with Patient: Total time spent is greater than 50% in coordination of care (as documented) at patient's floor/unit and/or counseling patient: Coding Level of Care Code 53854 Subseq Hosp Care Lvl 2 Diagnoses Intertrochanteric fracture of right hip S72.141A Encounter type: initial encounter Fracture alignment: displaced Fracture type: closed Shortness of breath R06.02 Acute respiratory failure with hypoxia J96.01 Stage III chronic kidney disease N18.3 Hypothyroidism E03.9 COPD (chronic obstructive pulmonary disease) J44.9 Hypertension I10 Dyslipidemia E78.5 Abnormality of esophagus K22.9 Acute blood loss anemia D62 DVT prophylaxis Z29.9 (1) Intertrochanteric fracture of right hip Encounter type: initial encounter Fracture alignment: displaced Fracture type: closed Qualified Code(s): S72.141A - Displaced intertrochanteric fracture of right femur, initial encounter for closed fracture
[2020-03-03] MEDS: traMADol HCL 50 MG TABLET PO PRN ×2 (11:26→21:16)
[2020-03-03] MEDS: ENOXAPARIN INJ 30 MG/0.3 ML SYR SQ SCH (21:15)
[2020-03-04] MEDS ORDERED: MoRPHine SULFATE 2 MG/ML CARP IV PRN (00:56)
[2020-03-04] MEDS: traMADol HCL 50 MG TABLET PO PRN ×4 (06:16→22:26)
[2020-03-04] MEDS: LEVOTHYROXINE SODIUM 112 MCG TABLET PO SCH (06:17)
[2020-03-04 07:28] LABS: Hematocrit (blood only) 26.4 % (37-47); Hemoglobin 8.6 g/dL (12.0-16.0); Mean Corpuscular Hemoglobin 30.8 pg (25-34); Mean Corpuscular Hgb Conc 32.6 g/dL (32-36); Mean Corpuscular Volume 94.6 fL (80-100); Nucleated RBC # (auto) 0.04 K/uL (0-0); Nucleated RBC % (auto) 0.4 %; Platelet Count 216 K/uL (130-400); RDW Standard Deviation 48.2 fL (36.4-46.3); Red Blood Count 2.79 M/uL (4.2-5.4); White Blood Count 10.13 K/uL (4.8-10.8)
[2020-03-04 07:55] LABS: BUN Creatinine Ratio 31.7 (10-20); Calcium 8.4 mg/dl (8.5-10.1); Creatinine Clr Calc Pharmacy 28.4 ml/min; Est GFR (African American) 44.1; Potassium 4.3 mmol/L (3.5-5.1)
[2020-03-04] MEDS ORDERED: SPIRONOLACTONE 25 MG TAB PO ONE (08:00)
[2020-03-04] MEDS: GABAPENTIN 300 MG CAP PO SCH ×4 (08:49→20:36)
[2020-03-04] MEDS: LOSARTAN POTASSIUM 50 MG TAB PO SCH (08:54)
[2020-03-04] MEDS: ROSUVASTATIN CALCIUM 20 MG TAB PO SCH (08:54)
[2020-03-04] MEDS: CHOLECALCIFEROL 1,000 UNITS 25 MCG TAB PO SCH (08:54)
[2020-03-04] MEDS: SPIRONOLACTONE 25 MG TAB PO SCH (08:55)
[2020-03-04] MEDS: MAGNESIUM OXIDE 400 MG TAB PO SCH (08:55)
[2020-03-04] MEDS: prednisoLONE acetate 1% OP SUSP 5 ML BTL OPR SCH (08:56)
[2020-03-04] MEDS: UMECLIDINIUM BROMIDE 62.5MCG/BLISTER 7 PUFFS/INHALER INH SCH (09:01)
[2020-03-04] MEDS: DOCUSATE SODIUM 100 MG CAP PO SCH ×2 (09:05→20:35)
--- NOTE | 2020-03-04 09:13 | XRay Report ---
XR chest 1V portable CLINICAL HISTORY: f/u sob COMPARISON STUDY: Chest radiograph and chest CT March 02, 2020. FINDINGS: No pneumothorax or pleural effusion is noted. There is no evidence for pulmonary edema. Mil d cardiomegaly is unchanged. No consolidation is identified to suggest pneumonia. Severe degenerative changes of the right shoulder are incidentally noted. IMPRESSION: No acute cardiopulmonary findings. ACT 112: Negative or not required by law. Electronically signed by: Neal Haynes M.D. 03/04/2020 9:12 AM
--- NOTE | 2020-03-04 09:25 | Hospitalist Progress Note ---
Date of Service March 04, 2020 Assessment & Plan (1) Intertrochanteric fracture of right hip: * Patient admitted for the geriatric fracture program after x-ray revealed a mildly comminuted and displaced intertrochanteric right hip fracture. ER did phone Dr. Prather who accepted the patient for surgical correction the exact timing of this correction is not clear as mentioned in the HPI there is some concern the patient may have an allergy to implantable metal this could or could not be nickel this was communicated to orthopedic surgeon were attempting to get records from [facility] for previous surgery she is obviously tolerated spinal surgery as she has implanted fix of hardware in her back * CXR without acute process. EKG unremarkable * POD #3 s/p R long trok nailing with Dr. Mc. EBL 50cc. 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 No BM since surgery * Lovenox for DVT prophylaxis -- to be continued for 4 weeks * PT/OT -- please continue. Plans for [facility] at discharge on Thursday if medically stable * Ordered vitamin D level -- low at 24.9. On 1000 units daily --> -- increased supplementation. PTH had been elevated in past appropriately for low Vit D * CBC in AM (2) Shortness of breath: * Reported morning of 03/02-- dropped to 87% on RA. Patient with hx COPD and utilizes Spiriva daily in addition to albuterol HFA prn * CXR negative for acute process * CT chest NEGATIVE for PE * EKG reviewed, similar to prior. Trop negative x3 * Transferred to [facility] for closer monitoring -- has been NSR with PACs. Will d/c telemetry monitoring * Albuterol neb prn -- changed to scheduled initially but back to prn dosing but changed back to scheduled given reported shortness of breath since yesterday * 97% on 2L -- to wean as tolerated * Continue incentive spirometer * Prednisone 30mg * Continue to monitor (3) Acute respiratory failure with hypoxia: * Requiring 2 L nasal cannula intermittently * CT angiogram negative for PE, with emphysematous changes, asymmetric gr oundglass opacities. Given hx of smoking, optional f/u CT in 12 months for nodule on imaging * Diuresing with Lasix * Continue bronchodilators * Wean off O2 as tolerated keep pulse ox greater than 92% (4) Stage III chronic kidney disease: * We have no old records here patient's kidney disease seems to be stage III as she states. Followed locally by her PCP but unaware of her baseline Cr values. (1.5 on admission) * IVF as above * Cr improved to 1.26 with dose of lasix 20mg IV x 1 on 03/02 and additional 20mg PO on 03/03 * Resumed spironolactone * BMP in AM (5) Hypothyroidism: * TSH with AM labs * Continue [employer] Synthroid 50 mcg a day --> per account she is on increased dose but records show 112mcg daily -- will continue at 112mcg daily and have repeat TFT per pcp (6) COPD (chronic obstructive pulmonary disease): * Patient takes daily Spiriva and as needed albuterol --> ordered umeclidinium while inpatient and added albuterol nebs as above * See above under SOB * Lungs sound clear --> patient denies hx of sleep apnea/CHF although does endorse she sleeps with a raised bed. No ECHO in system. No murmur heard on examination. Patient appears euvolemic on examination today. CXR with heart size upper limits of normal. Could consider ECHO as an outpatient (7) Hypertension: * Stable * BP currently 137/74 -- resumed losartan * Continue to monitor (8) Dyslipidemia: * Continue crestor 20mg (9) Abnormality of esophagus: * Noted to have mild nonspecific thickening of the distal esophageal wall on CT scan * Recommend follow-up as an outpatient with GI for possible EGD (10) Acute blood loss anemia: * Hemoglobin dropped from 14 down to 8 since admission likely secondary to blood loss from fracture * Hemodynamically stable, no need for transfusion * Follow CBC in the morning (11) DVT prophylaxis: * SCDs * Chemoprophylaxis with Lovenox -- will need to be continued for 4 weeks post-op Dispo: [facility] on Thursday planned Admission and Anticipated Discharge Date Admission Date: February 29, 2020 Supervising Physician Co-Signing Physician Notes LEENA Supervision Note: I did not personally see or examine the patient today, but I verified all rolon points of LEENA Watts's assessment and plan with the following exceptions/additions: None Subjective Patient evaluated this morning. Did have some shortness of breath last night, improved with nebulizer. Discussed that we will change these back to scheduled to see if we can get continued relief. No shortness of breath currently. No fever, cough or sputum production. Pain to her right hip with ambulation but improving. Passing gas but no BM. No chest pain, palpitations, nausea, vomiting, dysuria. She does have notion that she has not had to urinate since removal of iniguez catheter and has required straight cath. No abdominal pain. Review of Systems Review of Systems: All systems reviewed & are unremarkable except as noted in HPI & below Physical Exam Constitutional: WD/WN, vitals as above comfortable; no acute distress Eyes: + anicteric sclerae; no eyelid abnormality ENMT: mmm Neck: normal visual inspection Respiratory: normal respiratory effort, lungs clear to auscultation Auscultation: + diminished lung sounds and + crackles (fine crackles bibasilar, RML); no wheezes 2L NC Cardiovascular: RRR, no murmur, no edema Gastrointestinal (Abdomen): normal bowel sounds, soft, nontender, no hepatosplenomegaly Musculoskeletal: dressing to R hip c/d/i. no edema/erythema/drainage NVI strength 5/5 RLE, 5/5 LLE pulses weak but present abrasion present to lateral aspect R ankle, tender to touch (improved) Neurologic: moves all extremities and awake Psychiatric: Orientation: alert and oriented x 3 Lymphatic: no cervical or axillary lymphadenopathy Results & Data Results & Data ([facility]) Vital Signs (Past 12 Hours) Vital Signs Temp Pulse Pulse Resp BP Pulse Ox 03/04/20 08:09 36.4 C L 79 18 137/74 97 03/03/20 23:00 36.4 C L 76 18 152/65 H 97 03/03/20 21:51 77 18 96 Laboratory Results 03/04/20 03/04/20 Range/Units 06:29 06:29 WBC 10.13 (4.8-10.8) K/uL RBC 2.79 L (4.2-5.4) M/uL Hgb 8.6 L (12.0-16.0) g/dL Hct 26.4 L (37-47) % MCV 94.6 (80-100) fL MCH 30.8 (25-34) pg MCHC 32.6 (32-36) g/dL RDW Std Deviation 48.2 H (36.4-46.3) fL RDW Coeff of Nuris 14.0 (11.5-14.5) % Plt Count 216 (130-400) K/uL MPV 9.0 (7.4-10.4) fL Absolute Nucleated RBC 0.04 H (0-0) K/uL Nucleated RBC % (auto) 0.4 % Sodium 137 (136-145) mmol/L Potassium 4.3 (3.5-5.1) mmol/L Chloride 105 (98-107) mmol/L Carbon Dioxide 28 (21-32) mmol/L Anion Gap 4.0 (3-11) BUN 40 H (7-18) mg/dl Creatinine 1.26 H (0.6-1.2) mg/dl Est Cr Clr Drug Dosing 28.4 ml/min Est GFR ( Amer) 44.1 Est GFR (Non-Af Amer) 38.0 BUN/Creatinine Ratio 31.7 H (10-20) Glucose 111 H (70-99) mg/dl Calcium 8.4 L (8.5-10.1) mg/dl Diagnostic Findings CXR IMPRESSION: No acute cardiopulmonary findings. PG Care Time/CCT Total # of Minutes Spent Total Time Spent with Patient: Total time spent is greater than 50% in coordination of care (as documented) at patient's floor/unit and/or counseling patient: Coding Level of Care Code 64034 Subseq Hosp Care Lvl 2 Diagnoses Intertrochanteric fracture of right hip S72.141A Encounter type: initial encounter Fracture alignment: displaced Fracture type: closed Shortness of breath R06.02 Acute respiratory failure with hypoxia J96.01 Stage III chronic kidney disease N18.3 Hypothyroidism E03.9 COPD (chronic obstructive pulmonary disease) J44.9 Hypertension I10 Dyslipidemia E78.5 Abnormality of esophagus K22.9 Acute blood loss anemia D62 DVT prophylaxis Z29.9 (1) Intertrochanteric fracture of right hip Encounter type: initial encounter Fracture alignment: displaced Fracture type: closed Qualified Code(s): S72.141A - Displaced intertrochanteric fracture of right femur, initial encounter for closed fracture
[2020-03-04] MEDS: ALBUTEROL 0.083% NEBU SOLN 3 ML VIAL NEB SCH ×2 (12:50→19:10)
[2020-03-04] MEDS: predniSONE 10 MG TABLET PO SCH (13:18)
[2020-03-04] MEDS: ACETAMINOPHEN 500 MG TAB PO PRN (19:57)
[2020-03-04] MEDS: ENOXAPARIN INJ 30 MG/0.3 ML SYR SQ SCH (21:36)
[2020-03-05] MEDS: ALBUTEROL 0.083% NEBU SOLN 3 ML VIAL NEB SCH ×4 (00:39→19:42)
[2020-03-05] MEDS: LEVOTHYROXINE SODIUM 112 MCG TABLET PO SCH (05:59)
[2020-03-05 06:09] LABS: Mean Corpuscular Hemoglobin 30.5 pg (25-34); Mean Corpuscular Volume 95.4 fL (80-100); Platelet Count 223 K/uL (130-400); RDW Coefficient of Variation 14.4 % (11.5-14.5); RDW Standard Deviation 49.1 fL (36.4-46.3); Red Blood Count 2.62 M/uL (4.2-5.4); White Blood Count 8.07 K/uL (4.8-10.8)
[2020-03-05 06:49] LABS: Calcium 8.2 mg/dl (8.5-10.1); Creatinine Clr Calc Pharmacy 31.7 ml/min; Est GFR (African American) 50.3; Est GFR (Non-African American) 43.4
[2020-03-05] MEDS: CHOLECALCIFEROL 1,000 UNITS 25 MCG TAB PO SCH (08:06)
[2020-03-05] MEDS: SPIRONOLACTONE 25 MG TAB PO SCH (08:06)
[2020-03-05] MEDS: MAGNESIUM OXIDE 400 MG TAB PO SCH (08:07)
[2020-03-05] MEDS: UMECLIDINIUM BROMIDE 62.5MCG/BLISTER 7 PUFFS/INHALER INH SCH (08:07)
[2020-03-05] MEDS: ROSUVASTATIN CALCIUM 20 MG TAB PO SCH (08:07)
[2020-03-05] MEDS: GABAPENTIN 300 MG CAP PO SCH ×4 (08:08→21:09)
[2020-03-05] MEDS: predniSONE 10 MG TABLET PO SCH (08:08)
[2020-03-05] MEDS: LOSARTAN POTASSIUM 50 MG TAB PO SCH (08:08)
[2020-03-05] MEDS: DOCUSATE SODIUM 100 MG CAP PO SCH ×2 (08:14→21:10)
[2020-03-05] MEDS: traMADol HCL 50 MG TABLET PO PRN ×3 (08:14→19:01)
[2020-03-05] MEDS ORDERED: LOSARTAN POTASSIUM 50 MG TAB PO SCH (09:00)
--- NOTE | 2020-03-05 12:32 | Hospitalist Progress Note ---
Date of Service March 05, 2020 Assessment & Plan (1) Intertrochanteric fracture of right hip: POD #4. Trochanteric nailing with Dr. Mc Pain generally controlled Awaiting discharge to [facility] for rehab Lovenox for DVT prophylaxis per surgery to be continued for 4 weeks Further management outpatient with Dr. Mc (2) Acute respiratory failure with hypoxia: Hypoxia is resolved Patient has complaints of acute shortness of breath at the time of my examination with use of accessory muscles SaO2 is 99% on room air Urgent checks x-ray ordered and reveals no acute findings Unclear if this is a anxiety related event No use of paroxysmal chest muscles Continue to treat underlying COPD Examination with no bronchospasm or adventitious breath sounds Appears to be euvolemic Continue to monitor today (3) Acute blood loss anemia: EBL during surgery was 50 cc It is not unusual to have a drop in hemoglobin postsurgically with hip repair At this point hemoglobin is stable and rising We will check repeat H&H No active bleeding otherwise (4) Abnormality of esophagus: No dysphagia or nausea or vomiting This was an incidental finding on CT scan Recommend outpatient follow-up with gastroenterology No intervention needed at this time Continue aspiration precautions (5) Stage III chronic kidney disease: Unknown creatinine baseline Creatinine improved from 1.5-1.26 Continue on spironolactone Follow serial PRP (6) Hypothyroidism: Continue levothyroxine (7) COPD (chronic obstructive pulmonary disease): No outpatient inhalers or nebulizers Unknown PFTs Started on albuterol nebs every 6 scheduled as well as Incruse (AC) while inpatient due to shortness of breath We will discontinue both of these and prescribe just albuterol as needed for shortness of breath or wheezes Would also discontinue systemic prednisone due to recent fracture (8) Hypertension: Currently hemodynamically stable Continue home antihypertensive losartan 50 mg p.o. daily Control pain from recent fracture and repair (9) Dyslipidemia: Continue rosuvastatin 20 mg p.o. daily (10) DVT prophylaxis: Lovenox 30 mg subcutaneously daily Follow CBC secondary to anemia Ambulate as tolerated per orthopedic order Admission and Anticipated Discharge Date Admission Date: February 29, 2020 Subjective Attending: Dr. Erasmo Alcantar This is a an 89-year-old female that was admitted for a fall with an acute right trochanteric fracture. She had open reduction and internal fixation with an intramedullary lesa and nails with Dr. Mc. She is currently POD #4. She is being teed up for transfer to [facility] for discharge. At the time of my examination, she had a drop in hemoglobin from 8.6-8.0. She also had acute shortness of breath with use of accessory muscles. A chest x-ray was completed and showed no significant changes. Labs were reviewed and shows a potassium level of 5 and a BUN of 44 as well as a hemoglobin of 8. Otherwise labs were within normal limits. She has a fluid balance of +1.27 L during this hospital stay. She states that her pain is generally controlled on the right side. She has no significant edema. She has no fever or chills. She has no hemoptysis, cough, production of sputum. She has no other acute complaints. Review of Systems Review of Systems: All systems reviewed & are unremarkable except as noted in Subjective Physical Exam Physical Exam: GENERAL : Patient with acute distress and use of accessory muscles. Appears short of breath and panicked EYES: No icterus, gaze conjugate NOSE: No evidence of epistaxis MOUTH: No lesions or candidiasis NECK: Supple LUNGS: Lungs are clear to auscultation. There is no paroxysmal chest wall movement. No rales or bronchospasm. Respiratory rate is around 26 HEART: Regular, rate in the low 100s ABDOMEN: Soft, NT, ND, BS Present EXTREMITIES: No LE edema, pedal pulses intact and equal bilaterally. No significant pain with palpation to the right hip over repair area. Dressing dry and in place NEURO: A&OX3 Results & Data Results & Data ([facility]) Vital Signs (Past 12 Hours) Vital Signs Temp Pulse Resp BP Pulse Ox 03/05/20 07:36 70 17 96 03/05/20 07:06 36.5 C 69 18 130/69 92 03/05/20 00:39 77 18 94 Laboratory Results 03/05/20 12:30 03/05/20 05:48 Diagnostic Findings Portable chest x-ray 03/05/2020 at 1:06 PM Chest x-ray with no acute findings. There continues to be cardiomegaly and chronic interstitial thickening. PG Care Time/CCT Total # of Minutes Spent Total Time Spent with Patient: Total time spent is greater than 50% in coordination of care (as documented) at patient's floor/unit and/or counseling patient: 40 minutes Coding Level of Care Code 73870 Subseq Hosp Care Lvl 3 Diagnoses Intertrochanteric fracture of right hip S72.141A Encounter type: initial encounter Fracture alignment: displaced Fracture type: closed Acute respiratory failure with hypoxia J96.01 Acute blood loss anemia D62 Abnormality of esophagus K22.9 Stage III chronic kidney disease N18.3 Hypothyroidism E03.9 COPD (chronic obstructive pulmonary disease) J44.9 Hypertension I10 Dyslipidemia E78.5 DVT prophylaxis Z29.9 (1) Intertrochanteric fracture of right hip Encounter type: initial encounter Fracture alignment: displaced Fracture type: closed Qualified Code(s): S72.141A - Displaced intertrochanteric fracture of right femur, initial encounter for closed fracture
[2020-03-05 12:41] LABS: Hematocrit (blood only) 25.9 % (37-47); Hemoglobin 8.3 g/dL (12.0-16.0)
--- NOTE | 2020-03-05 13:07 | XRay Report ---
XR chest 1V portable HISTORY: Shortness of breath. COMPARISON: Comparison 03/04/2020. FINDINGS: No pneumothorax. No pleural effusions. The heart remains mildly enlarged. Advanced degenera tive changes within the right shoulder is again noted. Mild diffuse interstitial thickening which is likely chronic. No evidence for pulmonary edema. No new focal lung consolidations to suggest pneumoni a. Lumbar spinal fusion hardware is partially visualized. IMPRESSION: Cardiomegaly and chronic interstitial thickening is again noted. Otherwise, no acute process within t he chest. ACT 112: Negative or not required by law. Electronically signed by: Brian Rahman M.D. 03/05/2020 1:06 PM
[2020-03-05] MEDS ORDERED: FUROSEMIDE 40 MG in SYRINGE 0 ML IV ONE (14:00)
[2020-03-05] MEDS: ACETAMINOPHEN 500 MG TAB PO PRN (21:09)
[2020-03-05] MEDS ORDERED: ENOXAPARIN INJ 40 MG/0.4 ML SYR SQ SCH (22:00)
[2020-03-06] MEDS: ALBUTEROL 0.083% NEBU SOLN 3 ML VIAL NEB SCH ×2 (00:31→07:00)
[2020-03-06] MEDS: traMADol HCL 50 MG TABLET PO PRN ×3 (00:43→15:39)
[2020-03-06] MEDS ORDERED: MAGNESIUM HYDROXIDE SUSP 30 ML UDC PO PRN (05:39)
[2020-03-06] MEDS: ACETAMINOPHEN 500 MG TAB PO PRN (06:30)
[2020-03-06] MEDS: LEVOTHYROXINE SODIUM 112 MCG TABLET PO SCH (06:30)
[2020-03-06] MEDS: POLYETHYLENE (MIRALAX) 17 GM PACK PO PRN ×2 (06:31→10:51)
[2020-03-06] MEDS ORDERED: ALBUTEROL 0.083% NEBU SOLN 3 ML VIAL NEB PRN (07:52)
[2020-03-06] MEDS ORDERED: FUROSEMIDE 20 MG in SYRINGE 0 ML IV ONE (08:52)
--- NOTE | 2020-03-06 10:01 | Discharge Summary ---
Date of Service March 06, 2020 Admission HPI Per Admitting Provider 89-year-old female who presents the ER following mechanical fall. She was trying to empty her paper shredder and did not have her walker. She turned around to get it and she fell onto her right hip. She did not hit her head or neck. This occurred around 8 30-9am. She complains of pain in the right hip about a 6 out of 10. No other exacerbating or remitting factors with the exception of movement. She notes it is a dull ache now. Denies any new tingling or numbness. Denies any chest pain shortness of breath nausea vomiting or diarrhea. Does have decreased sensation in the lower extremities which is chronic and unchanged since prior to the fall. 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 This information was relayed to orthopedic surgeon Principal Diagnosis Right trochanteric fracture of the hip Discharge Data Allergies Allergy/AdvReac Type Severity Reaction Status Date / Time codeine AdvReac Intermediate GI SYMPTOMS Verified 02/29/20 12:58 oxycodone AdvReac Intermediate GI SYMPTOMS Verified 02/29/20 12:58 Consultations 03/01/20 17:09 Consult Case Management - Discharge Planning Routine Procedures Performed Operation Date: 03/01/20 10:10 Actual Procedures p Intramedullary Nail Right Hip(Right) - Mervin Mc, Ordered Studies 03/01/20 13:00 FL fluoroscopy <1hr Routine FL hip RT 2-3V Routine 03/02/20 08:53 CT angio chest PE protocol Stat Hospital Course (1) Intertrochanteric fracture of right hip: POD #5. Trochanteric nailing with Dr. Mc Pain generally controlled * A prescription for 30 tramadol 50 mg capsules was sent to the patient's pharmacy * The PDMP was reviewed prior to writing the prescription * There were a total of 6 prescriptions written from 04/05/2018 through 05/02/2019 for benzodiazepines and no narcotics * 30 capsules of tramadol 50 mg were ordered to be used every 4 hours as needed for pain * This prescription is for initial therapy. Any refills of tramadol for ongoing therapy will need to be obtained by the primary care physician or the orthopedic surgeon Patient has been accepted for transfer to [facility] for acute rehab [facility] for DVT prophylaxis per surgery to be continued for 4 weeks * It should be noted that initially Lovenox 30 mg daily was written due to the patient's GFR * If patient's renal function she declined any further, consider changing back to Lovenox 30 mg daily instead of the prescribed 40 mg. Further management outpatient with Dr. Mc (2) Acute respiratory failure with hypoxia: Hypoxia is resolved Patient has complaints of acute shortness of breath at the time of my examination with use of accessory muscles SaO2 is 99% on room air Patient complained of shortness of breath yesterday. An X-ray ordered and revealed no acute findings 40 mg of furosemide IV was administered Patient had some improvement. On examination this morning the patient had faint crackles at bilateral bases. An additional 20 mg of furosemide IV was given today We will discharge the patient on Aldactone 25 mg daily (3) Acute blood loss anemia: EBL during surgery was 50 cc It is not unusual to have a drop in hemoglobin postsurgically with hip repair At this point hemoglobin is stable and rising Repeat H&H was 8.3/25.9 No active bleeding otherwise No indication for transfusion We will follow outpatient labs * Hemoglobin on admission was 14.3 (4) Abnormality of esophagus: No dysphagia or nausea or vomiting This was an incidental finding on CT scan Recommend outpatient follow-up with gastroenterology No intervention needed at this time Continue aspiration precautions on discharge (5) Stage III chronic kidney disease: Unknown creatinine baseline Creatinine improved from 1.5 to 1.26 Continue on spironolactone Follow serial PRP as an outpatient (6) Hypothyroidism: Continue levothyroxine TSH was 1.41 Patient was discharged on 112 mcg of levothyroxine p.o. daily (7) COPD (chronic obstructive pulmonary disease): No outpatient inhalers or nebulizers Unknown PFTs Started on albuterol nebs every 6 scheduled as well as Incruse (AC) while inpatient due to shortness of breath We will discontinue both of these and prescribe just albuterol as needed for shortness of breath or wheezes Would also discontinue prednisone due to recent fracture No adventitious breath sounds today (8) Hypertension: Currently hemodynamically stable Home antihypertensive losartan 150 mg p.o. daily Patient's blood pressure was in the low 100s throughout the last 2 days of hospitalization Patient discharged on 50 mg of losartan p.o. daily If patient develops issues with hypertension, increased to her original home dose Control pain from recent fracture and repair (9) Dyslipidemia: Continue rosuvastatin 20 mg p.o. daily (10) DVT prophylaxis: Lovenox 40 mg subcutaneously daily for 4 weeks per orthopedics Follow CBC secondary to anemia Ambulate as tolerated per orthopedic order Total Time Total Time Spent Total Time Spent (In Minutes): 40 Total Time Includes: Examination of the Patient, Discharge Planning, Medication Reconciliation and Communication With Other Providers Discharge Plan Discharge Items Patient Disposition: Transfer Long-Term Fac Reason For Visit: RT INTERTROCHANTERIC HIP FX Discharge Diagnosis: Right hip fracture Activity: As commented below Activity Comment: You are being transferred to a rehabilitation facility. You can increase activity per rehabilitation plan Lifting: Gradually increase as tolerated Bathing: Keep incision dry Exercise/Sports: Gradually increase as tolerated Driving/Machine Use: You should not drive until cleared by orthopedics Weightbearing: Full weightbearing Non-emergency contact: Primary Care Provider Call non-emergency contact if: you have any medication questions, your symptoms worsen and your pain is not controlled Follow-up/Referrals: Joe Rivera Jr, [Primary Care Provider] - Diet: Heart Healthy Addtl Attending Provider Instructions: ORTHOPEDIC INSTRUCTIONS Hip Fracture Activity and Therapy Recommendations: 1. You were shown a series of exercises in the hospital. Do these exercises t hree times each day if you are able. 2. Get up and walk several times each day if you are capable. Make sure you have assistance is needed. For the first four weeks, try not to stand or walk for more than one hour at a time. If you do stand or walk for more than one hour, you will not hurt anything, but your leg will likely swell. 3. As you feel comfortable, you may change from the walker or crutches to a cane and then to independent walking if you are able. Please be safe. Medications: 1. Narcotic You will likely be sent from the hospital with the narcotic pain medication that worked best throughout your stay. 2. Lovenox You will likely be required to take Lovenox daily for 4 weeks after discharge from the hospital 3. Other medications may be given for specific circumstances. If you have any questions, please call the office at [phone]. 4. Resume previous home medications unless otherwise instructed TEDs/Elastic Stockings: The white elastic stockings help limit swelling and prevent blood clots from forming in your legs. The more you wear them, the more they work. Wear them for six weeks. Dressing Care: [place] can be open to air as long as the incisions are not draining. If the incisions are draining or if the ralf are getting caught on your clothes then please cover the ralf with dry gauze. Change the dressings as necessary to keep the incision as dry as possible Showering: You may shower 5 days from the day of surgery as long as the incisions are not draining. Do not soak the incision. Let soapy water run over the ralf and pat them dry. Things To Watch For: 1. Drainage from the incision site that occurs more than one week after your surgery. 2. Increased redness at the incision site. 3. Fever above 102 degrees Fahrenheit. 4. Unusual chest pain or shortness of breath. 5. Call [facility] at with any of the above problems Follow-Up Visit: Follow-up with Dr. Mc's PA (Mervin Felton) 2-3 weeks after your day of surgery. He will remove your ralf and answer any questions. If you have any additional questions or concerns, Dr Mc is usually in the office at the same time and will be available An appointment was probably scheduled when you signed-up for surgery in the office. If you have any questions call Pending Studies at Discharge: No Stand-Alone Forms: My [facility] Skilled Items Patient informed of condition?: Yes DNR: No Discharge Level of Care: Acute rehab Communicable Disease: Yes (MRSA swab positive) Discharge Prognosis: Stable Lines: None Urinary Catheter: No Medications and DC Order Prescriptions: New losartan 50 mg Tablet 50 mg PO QAM Qty: 30 RF: 0 enoxaparin 40 mg/0.4 mL Syringe 40 mg subcut Q24H Qty: 30 RF: 0 polyethylene glycol 3350 [Miralax] 17 gram Powder In Packet 17 g PO DAILY PRN (Reason: constipation) Qty: 30 RF: 0 meclizine 12.5 mg Tablet 12.5 mg PO Q8 PRN (Reason: dizziness) Qty: 30 RF: 0 tramadol 50 mg Tablet 50 mg PO Q4H PRN (Reason: pain) Qty: 30 RF: 0 spironolactone 25 mg Tablet 25 mg PO QAM Qty: 30 RF: 0 prednisolone acetate 1 % Drops,Suspension 1 drp OPR Q2D@0900 Qty: 50 RF: 0 docusate sodium 100 mg Capsule 100 mg PO BID Qty: 60 RF: 0 levothyroxine [Synthroid] 112 mcg Tablet 112 mcg PO DAILYBB Qty: 30 RF: 0 Continued aspirin 81 mg tablet,delayed release (DR/EC) 81 mg PO DAILY RF: 0 colchicine 0.6 mg tablet 0.6 mg PO DAILY RF: 0 cholecalciferol (vitamin D3) 1,000 unit capsule 1,000 units PO DAILY RF: 0 rosuvastatin [Crestor] 20 mg tablet 20 mg PO DAILY RF: 0 gabapentin 300 mg capsule 300 mg PO TID RF: 0 denosumab [Prolia] 60 mg/mL syringe 60 mg SQ Q182D RF: 0 ICaps [id number] Tablet Extended Release 2 tab PO DAILY RF: 0 magnesium oxide 400 mg magnesium Tablet 400 mg PO DAILY RF: 0 Discontinued losartan [Cozaar] 100 mg tablet 50 mg PO DAILY RF: 0 levothyroxine 50 mcg capsule 50 mcg PO DAILY RF: 0 Discharge Orders: Discharge Order (Routine); Ordered 03/06/20 Ordered By: Bryan Sanchez/Other Patient Handouts: Pain Management After Surgery Admission Data Admit Date/Time: 02/29/20 12:08 Attending Provider: Erasmo Alcantar Admit Provider: Danny Paul Primary Care Provider: Joe Rivera Jr Other Providers: [facility] ; [facility] ; [facility] ; [facility], Other Interventions: Discharge Summary Assessment (RN) Last Done: 03/06/20 15:48 Supervising Physician Co-Signing Physician Notes I supervised Bryan Chandra PA-C on this admission. I interviewed and examined the patient independently of him. The plan is as written in the his note except for any following changes/exceptions: None Coding Level of Care Code D/C Day Management >30 mins Medical Decision Making Moderate Complexity Diagnoses Intertrochanteric fracture of right hip S72.141A Encounter type: initial encounter Fracture alignment: displaced Fracture type: closed Acute respiratory failure with hypoxia J96.01 Acute blood loss anemia D62 Abnormality of esophagus K22.9 Stage III chronic kidney disease N18.3 Hypothyroidism E03.9 COPD (chronic obstructive pulmonary disease) J44.9 Hypertension I10 Dyslipidemia E78.5 DVT prophylaxis Z29.9 Time Spent (min) 40
[2020-03-06] MEDS: CHOLECALCIFEROL 1,000 UNITS 25 MCG TAB PO SCH (10:52)
[2020-03-06] MEDS: SPIRONOLACTONE 25 MG TAB PO SCH (10:53)
[2020-03-06] MEDS: GABAPENTIN 300 MG CAP PO SCH ×2 (10:53→15:39)
[2020-03-06] MEDS: LOSARTAN POTASSIUM 50 MG TAB PO SCH (10:53)
[2020-03-06] MEDS: MAGNESIUM OXIDE 400 MG TAB PO SCH (10:53)
[2020-03-06] MEDS: ROSUVASTATIN CALCIUM 20 MG TAB PO SCH (10:53)
[2020-03-06] MEDS: DOCUSATE SODIUM 100 MG CAP PO SCH (11:09)
--- NOTE | 2020-03-19 14:11 | Coding Query ---
To promote full compliance with coding requirements relating to patient care, physician participation is requested in all cases of electrical assembly supervisor uncertainty. Please assist us with the question(s) below: Coding Question(s): It was noted throughout the record that the patient has/is suspected to have osteoporosis. According to coding guidelines "a code for osteoporotic fracture, and not a traumatic fracture, should be used for any patient with known osteoporosis who suffers a fracture, even if the patient had a minor fall or trauma, if that fall or trauma would not usually break a normal, healthy bone." Please indicate below the type of fracture: Physician's Response(s): ( x ) Osteoporotic fracture of Right Trochanteric Hip ( x ) Traumatic fracture of Right Trochanteric Hip ( ) Other, please specify ( ) Unable to be determined MTDD
== END 2020-03-06 16:57 | DRG 480 ==
LOC: ED 10:09 → SUATTDRO 12:08 → 3W 12:08 → 3E 03-01 16:10 → 2W 03-02 13:03

== ENCOUNTER 2021-09-11 11:56 | Inpatient (IN) ==
--- NOTE | 2021-09-11 12:51 | XRay Report ---
XR foot RT min 3V routine CLINICAL HISTORY: Right foot swelling, pain COMPARISON STUDY: None. FINDINGS: Dorsal soft tissue swelling throughout the right foot. No acute fracture or dislocation. Th e Lisfranc joint is intact. Mild osteoarthritis within the DIP, PIP, and first MTP joints. The bones are osteopenic. Mild cortical lobulation within the mid shaft of the second metatarsal is likely chronometer assembler cuauhtemoc. Patchy sclerosis within the heads of the second and fifth toe proximal phalanges is also likely chronic. A plantar heel spur is noted. IMPRESSION: Dorsal soft tissue swelling throughout the right foot. No acute fracture or dislocation. ACT 112: Negative or not required by law. Electronically signed by: Brian Rahman M.D. 09/11/2021 12:50 PM
--- NOTE | 2021-09-11 13:04 | Emergency Department Note ---
Impression & Plan Cellulitis of right lower extremity, Edema, Open wound of right heel, History of Clostridioides difficile colitis (Ruled Out): Osteoporosis ED Provider Note Provider: Gulshan Canales MD DATE OF SERVICE: 09/11/2021 CHIEF COMPLAINT: Right foot swelling, pain, weeping HISTORY OF PRESENT ILLNESS: Patient is a 89-year-old female history of arthritis, hypothyroidism, hypertension, peripheral vascular disease, and COPD presenting here today for by her wound care nurse from home reporting increased swelling and weeping and pain in her right leg developing over the last several days. Was admitted here just under a month ago. Had a little bit of swelling at that time and use compression wrapping and has good improvement with some Keflex for mild cellulitis. Patient states there is a wound at the back of her heel has been there for several weeks but now there is some clear drainage and increasing redness of her right lower leg as well as swelling. Denies new trauma. Denies fever or chills. Denies significant shortness of breath. Patient does report a history of C. difficile about 5 years ago. REVIEW OF SYSTEMS: A total of 10 review of systems was obtained and negative except as stated above in the HPI. PAST MEDICAL HISTORY: As noted above MEDICATIONS: Reviewed home medication list SOCIAL HISTORY: At home by herself PHYSICAL EXAM: GENERAL: alert and oriented in no acute distress on stretcher Head: normocephalic and atraumatic EYES: No injection, discharge or icterus. NECK: Trachea midline. Supple. ENT: Mucous membranes pink and moist. LUNGS: Airway patent. No retractions. Breath sounds clear HEART: Regular rate and rhythm. No chest wall tenderness ABDOMEN: Soft and non-tender, without guarding or rebound. SKIN: Acyanotic, warm, dry except as noted below EXTREMITIES: Without swelling, tenderness or deformity in the left lower extremity however in the right lower extremity there is erythema and 2+ edema of the right lower leg below the knee with an approximately 1 x 3 cm healing skin wound over the right heel. No significant palpable right DP pulse. No crepitus appreciated. NEUROLOGICAL: No aphasia. No facial droop or slurred speech. Normal strength and tone in the extremities. Sensation to gross touch in the right lower extremity a nd foot. Ambulatory. PDMP was checked without noted issue. Patient's laboratory studies and imaging reviewed. Differential includes DVT, musculoskeletal, infection, joint effusion, trauma, lymphedema, idiopathic, CHF, as well as other pathologies. IMPRESSION/MEDICAL DECISION MAKING: Reviewed recent hospitalization and at the time had ultrasound of the right lower leg including arterial with diminished flows. Patient was not recommended any vascular procedures per the available notes from the system. Patient appears to have an open wound on the heel. No new trauma. X-rays not evidence of fracture. Question cellulitis versus DVT. Ultrasound completed to exclude DVT. Basic blood work obtained. Unilateral nature leans against CHF at this time. Doubt true ischemia although likely some continued PVD again there is some erythema to the leg. Patient with a history of C. difficile improved quickly per the records on Keflex several weeks ago. No evidence of DVT per the radiology report of the ultrasound. Blood work reviewed without significant leukocytosis. Renal function slightly worse than normal but not severely off baseline. Discussed with the patient findings. Believe there is a component of infection here. Discussed about her request starting on a course of vancomycin prophylactically with the oral antibiotics and given the first dose of Ancef here. Ulcer from the right heel wound was ordered. Discussed with patient's family member who later arrived to report concerns about the patient's ability to care for self at home especially with this leg issue as she lives by herself. Discussed options observation versus trial of outpatient therapy. They wished given the fact she lives alone with some worsened ambulatory dysfunction for observation here. DIAGNOSIS: Right lower extremity swelling and cellulitis, right heel wound DISPOSITION: Hospitalist will evaluate Patient was agreeable with this plan. Past Med/Surg History Medical History DANNY (acute kidney injury) Chronic lumbar pain COPD (chronic obstructive pulmonary disease) Dyslipidemia Fracture of transverse process of vertebra Frozen shoulder Right Hypertension Hypothyroidism Intertrochanteric fracture of right hip Lumbar postlaminectomy syndrome Lumbar radiculopathy Multiple fractures of thoracic spine Osteoarthritis Osteoporosis Ovarian cystic mass Pulmonary nodule Right humeral fracture Rotator cuff arthropathy of left shoulder S/P right hip fracture Sacroiliitis Serum calcium elevated Stage III chronic kidney disease Surgical History History of appendectomy History of arthroscopic knee surgery Right History of cholecystectomy History of dilatation and curettage History of herniorrhaphy History of lumbar surgery L3 through L5 fusion History of tonsillectomy and adenoidectomy History of tubal ligation History of vascular surgery Family History Denies family history of Kidney disease Social History Smoking Status: Never smoker Hx Alcohol Use: No Hx Substance Use: No Preferred Language: Luxembourgish Communication Ability: Effective Pre Fabricator Required: No Beliefs That Will Affect Care: None marital status: / Current Living Situation: Alone Feels Safe at Home: Yes Assistive Devices: Denture - Upper, Denture - Lower, Glasses and Walker Allergies Allergies Allergy/AdvReac Type Severity Reaction Status Date / Time codeine AdvReac Intermediate GI SYMPTOMS Verified 09/11/21 10:41 oxycodone AdvReac Intermediate GI SYMPTOMS Verified 09/11/21 10:41 Home Meds Home Medications Medication Instructions Recorded Confirmed aspirin 81 mg tablet,delayed 81 mg PO HS 02/23/18 09/11/21 release [id number] 2 tab PO DAILY 02/29/20 09/11/21 3,300 unit-5 mg-200mg-75 unit tablet ER (ICaps) albuterol sulfate 90 mcg/actuation 2 inh INHALATION DIRECTED 07/26/21 09/11/21 breath activated powder inhaler (ProAir RespiClick) metoprolol succinate 25 mg 12.5 mg PO DAILY 07/26/21 09/11/21 tablet,extended release 24 hr mupirocin 2 % topical ointment 1 applic TOPICAL DIRECTED 07/26/21 09/11/21 tiotropium bromide 18 mcg capsule 1 cap INHALATION DAILY 07/26/21 09/11/21 with inhalation device (Spiriva with HandiHaler) acetazolamide 250 mg tablet 250 mg PO BID 09/11/21 09/11/21 cholecalciferol (vitamin D3) 25 75 mcg PO DAILY 09/11/21 09/11/21 mcg (1,000 unit) tablet (Vitamin D3) colchicine 0.6 mg tablet 0.6 mg PO DAILY 09/11/21 09/11/21 gabapentin 300 mg capsule 600 mg PO TID 09/11/21 09/11/21 levothyroxine 125 mcg tablet 125 mcg PO DAILY 09/11/21 09/11/21 magnesium oxide 400 mg PO DAILY 09/11/21 09/11/21 quinine sulfate 200 mg capsule 200 mg PO DAILY 09/11/21 09/11/21 Previous Rx's Medication Instructions Recorded docusate sodium 100 mg capsule 100 mg PO BID #60 cap 03/06/20 meclizine 12.5 mg tablet 12.5 mg PO Q8 PRN #30 tab 03/06/20 polyethylene glycol 3350 17 gram 17 g PO DAILY PRN #30 ea 03/06/20 oral powder packet (Miralax) prednisolone acetate 1 % eye 1 drp OPR Q2D@0900 #50 ml 03/06/20 drops,suspension simvastatin 20 mg tablet 20 mg PO DAILY #30 tab 08/12/21 Results & Data (ED) Vital Signs Vital Signs - 24 hr 09/11/21 12:01 09/11/21 14:37 Temperature 36.6 C Temperature Source Temporal Artery Scan Pulse Rate 75 Pulse Rate [Right Radial] 82 Respiratory Rate 18 18 Respiratory Effort / Characteristics Non-Labored Respiratory Depth Normal Blood Pressure 148/73 H Blood Pressure [Right Arm] 174/65 H Blood Pressure Mean 98 Blood Pressure Mean [Right Arm] 101 Blood Pressure Position [Right Arm] Lying Pulse Oximetry 99 95 Oxygen Delivery Method Room Air Room Air Sepsis Recent Fever Within 48 Hours No Sepsis New/Unexplained Change in Mental Status No Sepsis Action Taken by Nursing No Action Required Laboratory Data Result diagrams: 09/11/21 12:40 09/11/21 12:40 Lab Results 09/11/21 09/11/21 09/11/21 Range/Units 12:40 12:40 15:19 WBC 8.99 (4.8-10.8) K/uL RBC 3.70 L (4.2-5.4) M/uL Hgb 11.8 L (12.0-16.0) g/dL Hct 38.7 (37-47) % MCV 104.6 H (80-100) fL MCH 31.9 (25-34) pg MCHC 30.5 L (32-36) g/dL RDW Std Deviation 57.9 H (36.4-46.3) fL RDW Coeff of Nuris 15.2 H (11.5-14.5) % Plt Count 284 (130-400) K/uL MPV 9.0 (7.4-10.4) fL Immature Gran % (Auto) 0.6 % Neut % (Auto) 69.6 % Lymph % (Auto) 16.9 % Glades % (Auto) 10.8 % Eos % (Auto) 2.1 % Baso % (Auto) 0.0 % Neut # (Auto) 6.26 (1.4-6.5) K/uL Lymph # (Auto) 1.52 (1.2-3.4) K/uL Glades # (Auto) 0.97 H (0.11-0.59) K/uL Eos # (Auto) 0.19 (0-0.5) K/uL Baso # (Auto) 0.00 (0-0.2) K/uL Immature Gran # (Auto) 0.05 H (0.00-0.02) K/uL Sodium 139 (136-145) mmol/L Potassium 3.5 (3.5-5.1) mmol/L Chloride 110 H (98-107) mmol/L Carbon Dioxide 23 (21-32) mmol/L Anion Gap 6 (3-11) BUN 38 H (6-23) mg/dl Creatinine 1.59 H (0.6-1.2) mg/dl Est Cr Clr Drug Dosing Not Reportable Est GFR ( Amer) 33.0 ml/min Est GFR (Non-Af Amer) 28.5 ml/min BUN/Creatinine Ratio 23.9 H (10-20) Glucose 77 (70-99(Fasting)) mg/dl Calcium 9.9 (8.5-10.1) mg/dl SARS-CoV-2, RNA, NAAT NEGATIVE (NEGATIVE) Administered Medications Discontinued Medications Cefazolin Sodium (Ancef 1000mg) 1,000 mg in 7.5 mls @ 2.5 mls/min IV NOW STA Stop: 09/11/21 15:03 Last Admin: 09/11/21 15:55 Dose: Not Given Documented by: [id number] Vancomycin HCl (Vancomycin Hcl 125 Mg/2.5ml Soln) 125 mg PO NOW STA Stop: 09/11/21 15:02 Last Admin: 09/11/21 15:40 Dose: 125 mg Documented by: [id number] Imaging Data Radiologist's Impression: Foot X-Ray 09/11/21 12:21 XR foot RT min 3V routine CLINICAL HISTORY: Right foot swelling, pain COMPARISON STUDY: None. FINDINGS: Dorsal soft tissue swelling throughout the right foot. No acute fra cture or dislocation. The Lisfranc joint is intact. Mild osteoarthritis within the DIP, PIP, and first MTP joints. The bones are osteopenic. Mild cortical lobulation within the mid shaft of the second metatarsal is likely chronic. Patchy sclerosis within the heads of the second and fifth toe proximal phalanges is also likely chronic. A plantar heel spur is noted. IMPRESSION: Dorsal soft tissue swelling throughout the right foot. No acute fracture or dislocation. ACT 112: Negative or not required by law. Electronically signed by: Brian Rahman M.D. 09/11/2021 12:50 PM Venous Doppler Study 09/11/21 12:21 RIGHT LOWER EXTREMITY VENOUS DOPPLER HISTORY: Right leg swelling, pain COMPARISON STUDY: None. FINDINGS: There is normal compressibility, flow, and augmentation within the right lower extremity deep venous system. Subcutaneous edema noted within the right knee/calf. IMPRESSION: No DVT within the right lower extremity ACT 112: Negative or not required by law. Electronically signed by: Brian Rahman M.D. 09/11/2021 1:48 PM Discharge Plan Visit Data Chief Complaint: Swelling/Edema to Extremity Stated Complaint: R FOOT SWOLLEN/RED ED Provider: Gulshan Canales Discharge Problem: Cellulitis of right lower extremity, Edema, Open wound of right heel, History of Clostridioides difficile colitis Discharge Problem: (Ruled Out): Osteoporosis Patient Disposition: Being Evaluated by Hospitalist Forms Stand Alone Forms: My [facility] Prescriptions Prescriptions: No Action aspirin 81 mg tablet,delayed release (DR/EC) 81 mg PO HS RF: 0 quinine sulfate 200 mg capsule 200 mg PO DAILY RF: 0 ICaps [id number] Tablet Extended Release 2 tab PO DAILY RF: 0 polyethylene glycol 3350 [Miralax] 17 gram Powder In Packet 17 g PO DAILY PRN (Reason: constipation) Qty: 30 RF: 0 meclizine 12.5 mg Tablet 12.5 mg PO Q8 PRN (Reason: dizziness) Qty: 30 RF: 0 prednisolone acetate 1 % Drops,Suspension 1 drp OPR Q2D@0900 Qty: 50 RF: 0 docusate sodium 100 mg Capsule 100 mg PO BID Qty: 60 RF: 0 levothyroxine 125 mcg tablet 125 mcg PO DAILY RF: 0 magnesium oxide 400 mg magnesium Tablet 400 mg PO DAILY RF: 0 acetazolamide 250 mg tablet 250 mg PO BID RF: 0 gabapentin 300 mg capsule 600 mg PO TID RF: 0 colchicine 0.6 mg Tablet 0.6 mg PO DAILY RF: 0 cholecalciferol (vitamin D3) [Vitamin D3] 25 mcg (1,000 unit) Tablet 75 mcg PO DAILY RF: 0 mupirocin 2 % ointment 1 applic TOPICAL DIRECTED RF: 0 metoprolol succinate 25 mg tablet extended release 24 hr 12.5 mg PO DAILY RF: 0 Spiriva with HandiHaler 18 mcg capsule, w/inhalation device 1 cap INHALATION DAILY RF: 0 ProAir RespiClick 90 mcg/actuation aerosol powdr breath activated 2 inh INHALATION DIRECTED RF: 0 simvastatin 20 mg tablet 20 mg PO DAILY Qty: 30 RF: 0 Referrals Referrals: Joe Rivera Jr, [Primary Care Provider] -
[2021-09-11 13:07] LABS: Eosinophils # (auto) 0.19 K/uL (0-0.5); Eosinophils % (auto) 2.1 %; Hematocrit (blood only) 38.7 % (37-47); Hemoglobin 11.8 g/dL (12.0-16.0); Immature Granulocytes # (auto) 0.05 K/uL (0.00-0.02); Immature Granulocytes % (auto) 0.6 %; Lymphocytes # (auto) 1.52 K/uL (1.2-3.4); Lymphocytes % (auto) 16.9 %; Mean Corpuscular Hemoglobin 31.9 pg (25-34); Mean Corpuscular Hgb Conc 30.5 g/dL (32-36); Mean Corpuscular Volume 104.6 fL (80-100); Monocytes # (auto) 0.97 K/uL (0.11-0.59); Monocytes % (auto) 10.8 %; Neutrophils # (auto) 6.26 K/uL (1.4-6.5); Neutrophils % (auto) 69.6 %; Platelet Count 284 K/uL (130-400); RDW Coefficient of Variation 15.2 % (11.5-14.5); RDW Standard Deviation 57.9 fL (36.4-46.3); White Blood Count 8.99 K/uL (4.8-10.8)
[2021-09-11 13:25] LABS: Anion Gap 6 (3-11); BUN Creatinine Ratio 23.9 (10-20); Blood Urea Nitrogen 38 mg/dl (6-23); Calcium 9.9 mg/dl (8.5-10.1); Carbon Dioxide 23 mmol/L (21-32); Chloride 110 mmol/L (98-107); Est GFR (Non-African American) 28.5 ml/min; Glucose 77 mg/dl (70-99(Fasting)); Potassium 3.5 mmol/L (3.5-5.1); Sodium 139 mmol/L (136-145)
--- NOTE | 2021-09-11 13:50 | Ultrasound Report ---
RIGHT LOWER EXTREMITY VENOUS DOPPLER HISTORY: Right leg swelling, pain COMPARISON STUDY: None. FINDINGS: There is normal compressibility, flow, and augmentation within the right lower extremity de ep venous system. Subcutaneous edema noted within the right knee/calf. IMPRESSION: No DVT within the right lower extremity ACT 112: Negative or not required by law. Electronically signed by: Brian Rahman M.D. 09/11/2021 1:48 PM
[2021-09-11] MEDS ORDERED: ceFAZolin 1000MG 1,000 MG/7.5 ML SYR IV STA (15:01)
[2021-09-11] MEDS ORDERED: VANCOMYCIN HCL 125 MG/2.5ML SOLN PO STA (15:01)
[2021-09-11] MEDS ORDERED: cefTRIAXone SODIUM 1,000 MG/50 ML BAG IV STA (15:45)
--- NOTE | 2021-09-11 16:21 | History & Physical Report ---
Date of Service September 11, 2021 Assessment & Plan (1) Cellulitis of right lower extremity: Plan: Acute on chronic with remaining errythema following continued outpatient course of keflex - WBC not elevated with normal NLR- PCT pending - Wound culture sent by EMD- did not grow anything previously - Rocephin 1GM IV q24 - Oral Vancomycin give in EMD- defer to rounding team to continue or not - WCN consult for right heel evaluation (2) Open wound of right heel: Plan: As above - this is also making her limp when she walks secondary to pain and is most likley attributing to her falling more as well as her baseline instability (3) Hypertension: Plan: sporadic control- likley well controlled while in house and getting all her medications - continue BB (4) Falls frequently: Plan: As above- will likely benefit from rehab vs. SNF for extended period - family would also like her to be assisted with her falls at home (5) Hypothyroidism: Plan: Continue synthroid (6) COPD (chronic obstructive pulmonary disease): Plan: Continue HARDY, Continue Spiriva (7) Lumbar radiculopathy: Plan: Chronic with postlaminectomy syndrome (8) History of Clostridioides difficile colitis: Plan: As above - defer for continued prophylaxis treatment History of Present Illness Primary Care Provider: Joe Rivera Jr, DO 89 YOF with medical history of: Frequent falls, lives at home by herself, COPD, postlaminectomy syndrome, CKD, Hypothyroidism, renal artery stenosis. Patient was recenlty discharged on 08/12/21- where she was admitted for falls with multiple rib fractures and ulceration with cellulitis to her right heel. The patient was treated with antibiotics and discharged with Keflex and oral vancomycin for C.DIFF prophylaxis- last had 3-4 years ago. She went to [facility] and was discharged to home about 2 weeks ago. She is accompanied by her son-in- law today and notes that home health has been coming to see her but notes that she has fallen twice that he knows of while she has been at home. The patient went to her [facility] appointment today for follow up of her DANNY/CKD. She was brought to [facility] for falls and not improving cellulits of her right heel and leg. In the EMD she had CXR, ECG, wound culture and routine labs performed, she had foot xray and venous doppler of the right leg that was negative for osteo and DVT. She was given dose of Rocephin IV and Vancomycin orally, Ancef was discontinued. Overall patient would likely benefit for another PT/OT evaluation and possible rehab vs. SNF. She is concerned for her "foot drop" and tripping while walking. Allergies Allergy/AdvReac Type Severity Reaction Status Date / Time codeine AdvReac Intermediate GI SYMPTOMS Verified 09/11/21 10:41 oxycodone AdvReac Intermediate GI SYMPTOMS Verified 09/11/21 10:41 Home Medications Medication Instructions Recorded Confirmed Type aspirin 81 mg tablet,delayed 81 mg PO HS 02/23/18 09/11/21 History release [id number]-nunpjuf-min 2 tab PO DAILY 02/29/20 09/11/21 History 3,300 unit-5 mg-200mg-75 unit tablet ER (ICaps) docusate sodium 100 mg capsule 100 mg PO BID #60 cap 03/06/20 09/11/21 Rx meclizine 12.5 mg tablet 12.5 mg PO Q8 PRN #30 tab 03/06/20 09/11/21 Rx polyethylene glycol 3350 17 gram 17 g PO DAILY PRN #30 ea 03/06/20 09/11/21 Rx oral powder packet (Miralax) prednisolone acetate 1 % eye 1 drp OPR Q2D@0900 #50 ml 03/06/20 09/11/21 Rx drops,suspension albuterol sulfate 90 mcg/actuation 2 inh INHALATION DIRECTED 07/26/21 09/11/21 History breath activated powder inhaler (ProAir RespiClick) metoprolol succinate 25 mg 12.5 mg PO DAILY 07/26/21 09/11/21 History tablet,extended release 24 hr mupirocin 2 % topical ointment 1 applic TOPICAL DIRECTED 07/26/21 09/11/21 History tiotropium bromide 18 mcg capsule 1 cap INHALATION DAILY 07/26/21 09/11/21 History with inhalation device (Spiriva with HandiHaler) simvastatin 20 mg tablet 20 mg PO DAILY #30 tab 08/12/21 09/11/21 Rx acetazolamide 250 mg tablet 250 mg PO BID 09/11/21 09/11/21 History cholecalciferol (vitamin D3) 25 75 mcg PO DAILY 09/11/21 09/11/21 History mcg (1,000 unit) tablet (Vitamin D3) colchicine 0.6 mg tablet 0.6 mg PO DAILY 09/11/21 09/11/21 History gabapentin 300 mg capsule 600 mg PO TID 09/11/21 09/11/21 History levothyroxine 125 mcg tablet 125 mcg PO DAILY 09/11/21 09/11/21 History magnesium oxide 400 mg PO DAILY 09/11/21 09/11/21 History quinine sulfate 200 mg capsule 200 mg PO DAILY 09/11/21 09/11/21 History Past Med/Surg History Medical History DANNY (acute kidney injury) Chronic lumbar pain COPD (chronic obstructive pulmonary disease) Dyslipidemia Fracture of transverse process of vertebra Frozen shoulder Right Hypertension Hypothyroidism Intertrochanteric fracture of right hip Lumbar postlaminectomy syndrome Lumbar radiculopathy Multiple fractures of thoracic spine Osteoarthritis Osteoporosis Ovarian cystic mass Pulmonary nodule Right humeral fracture Rotator cuff arthropathy of left shoulder S/P right hip fracture Sacroiliitis Serum calcium elevated Stage III chronic kidney disease Surgical History History of appendectomy History of arthroscopic knee surgery Right History of cholecystectomy History of dilatation and curettage History of herniorrhaphy History of lumbar surgery L3 through L5 fusion History of tonsillectomy and adenoidectomy History of tubal ligation History of vascular surgery Family History Denies family history of Kidney disease Social History Smoking Status: Never smoker Hx Alcohol Use: No Hx Substance Use: No Preferred Language: Burkinan Communication Ability: Effective 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 Beliefs That Will Affect Care: None marital status: / Current Living Situation: Alone Feels Safe at Home: Yes Assistive Devices: Denture - Upper, Denture - Lower, Glasses and Walker Review of Systems Review of Systems: REVIEW OF SYSTEMS: Constitutional: No fever, sweats or chills Eyes: No diplopia, no worsening or blurred vision ENT: normal hearing, no trouble swallowing Respiratory: No cough, sputum, dyspnea at rest or on exertion Cardiovascular: No chest pain, tightness or palpitations Abdomen: No pain, nausea, vomiting, diarrhea or constipation Musculoskeletal: (+) generalized weakness, falls, ulceration to right heel. No joint pain, calf pain, swelling Neurologic: (+) weakness, or balance problems, numbness/tingling Psychiatric: No anxiety or depression Skin: No rash or itch Physical Exam Physical Exam: PHYSICAL EXAM: General: awake, alert, Head: Normocephalic, atraumatic ENT: PERRLA, EOMI, no pharyngeal exudate, mucous membranes moist Neuro: AAO x 3, speech clear and appropriate, strength intact bilaterally 5/5, sensation intact and equal all extremities and dermatomes, no pronator drift Chest: equal rise and fall of the chest, no accessory muscle use, no heaves or thrills, Clear to auscultation, on room air, Cardiac: Regular rate and rhythm, telemetry reviewed, skin warm dry, cap refill <3 seconds, peripheral pulses +2 no JVD, no murmur, +2 edema right lower leg GI: NABS x 4 quadrants, soft, nontender to palpation, no rebound, guarding or tenderness : Spontaneously voiding, no pain, no CVA tenderness, Psych: Normal mood and affect Skin: erythema to right tello, edema, 2x3x1 heel ulceration to right heel with surrounding erythema and serous drainage Results & Data Results & Data ([facility]) Vital Signs (Past 12 Hours) Vital Signs Temp Pulse Pulse Resp BP BP Pulse Ox 09/11/21 14:37 82 18 174/65 H 95 09/11/21 12:01 36.6 C 75 18 148/73 H 99 Laboratory Results Abnormal lab results 09/11/21 09/11/21 Range/Units 12:40 12:40 RBC 3.70 L (4.2-5.4) M/uL Hgb 11.8 L (12.0-16.0) g/dL MCV 104.6 H (80-100) fL MCHC 30.5 L (32-36) g/dL RDW Std Deviation 57.9 H (36.4-46.3) fL RDW Coeff of Nuris 15.2 H (11.5-14.5) % [place] # (Auto) 0.97 H (0.11-0.59) K/uL Immature Gran # (Auto) 0.05 H (0.00-0.02) K/uL Chloride 110 H (98-107) mmol/L BUN 38 H (6-23) mg/dl Creatinine 1.59 H (0.6-1.2) mg/dl BUN/Creatinine Ratio 23.9 H (10-20) Diagnostic Findings Foot X-Ray 09/11/21 12:21 XR foot RT min 3V routine CLINICAL HISTORY: Right foot swelling, pain COMPARISON STUDY: None. FINDINGS: Dorsal soft tissue swelling throughout the right foot. No acute fracture or dislocation. The Lisfranc joint is intact. Mild osteoarthritis within the DIP, PIP, and first MTP joints. The bones are osteopenic. Mild cortical lobulation within the mid shaft of the second metatarsal is likely chronic. Patchy sclerosis within the heads of the second and fifth toe proximal phalanges is also likely chronic. A plantar heel spur is noted. IMPRESSION: Dorsal soft tissue swelling throughout the right foot. No acute fracture or dislocation. ACT 112: Negative or not required by law. Electronically signed by: Brian Rahman M.D. 09/11/2021 12:50 PM Venous Doppler Study 09/11/21 12:21 RIGHT LOWER EXTREMITY VENOUS DOPPLER HISTORY: Right leg swelling, pain COMPARISON STUDY: None. FINDINGS: There is normal compressibility, flow, and augmentation within the right lower extremity deep venous system. Subcutaneous edema noted within the right knee/calf. IMPRESSION: No DVT within the right lower extremity ACT 112: Negative or not required by law. Electronically signed by: Brian Rahman M.D. 09/11/2021 1:48 PM Medications Administered Home Medications aspirin 81 mg tablet,delayed release 81 mg PO HS 02/23/18 [History Confirmed 09/11/21] [id number]-[id number]-B-L-vwuabl-oovoiwv-min 3,300 unit-5 mg-200mg-75 unit tablet ER (ICaps) 2 tab PO DAILY 02/29/20 [History Confirmed 09/11/21] docusate sodium 100 mg capsule 100 mg PO BID #60 cap 03/06/20 [Rx Confirmed 09/11/21] meclizine 12.5 mg tablet 12.5 mg PO Q8 PRN #30 tab 03/06/20 [Rx Confirmed 09/11/21] polyethylene glycol 3350 17 gram oral powder packet (Miralax) 17 g PO DAILY PRN #30 ea 03/06/20 [Rx Confirmed 09/11/21] prednisolone acetate 1 % eye drops,suspension 1 drp OPR Q2D@0900 #50 ml 03/06/20 [Rx Confirmed 09/11/21] albuterol sulfate 90 mcg/actuation breath activated powder inhaler (ProAir RespiClick) 2 inh INHALATION DIRECTED 07/26/21 [History Confirmed 09/11/21] metoprolol succinate 25 mg tablet,extended release 24 hr 12.5 mg PO DAILY 07/26/21 [History Confirmed 09/11/21] mupirocin 2 % topical ointment 1 applic TOPICAL DIRECTED 07/26/21 [History Confirmed 09/11/21] tiotropium bromide 18 mcg capsule with inhalation device (Spiriva with HandiHaler) 1 cap INHALATION DAILY 07/26/21 [History Confirmed 09/11/21] simvastatin 20 mg tablet 20 mg PO DAILY #30 tab 08/12/21 [Rx Confirmed 09/11/21] acetazolamide 250 mg tablet 250 mg PO BID 09/11/21 [History Confirmed 09/11/21] cholecalciferol (vitamin D3) 25 mcg (1,000 unit) tablet (Vitamin D3) 75 mcg PO DAILY 09/11/21 [History Confirmed 09/11/21] colchicine 0.6 mg tablet 0.6 mg PO DAILY 09/11/21 [History Confirmed 09/11/21] gabapentin 300 mg capsule 600 mg PO TID 09/11/21 [History Confirmed 09/11/21] levothyroxine 125 mcg tablet 125 mcg PO DAILY 09/11/21 [History Confirmed 09/11/21] magnesium oxide 400 mg PO DAILY 09/11/21 [History Confirmed 09/11/21] quinine sulfate 200 mg capsule 200 mg PO DAILY 09/11/21 [History Confirmed 09/11/21] Active Medications Ceftriaxone Sodium (Rocephin) 1,000 mg in 50 mls @ 100 mls/hr IV NOW STA Stop: 09/11/21 16:14 Discontinued Medications Cefazolin Sodium (Ancef 1000mg) 1,000 mg in 7.5 mls @ 2.5 mls/min IV NOW STA Stop: 09/11/21 15:03 Last Admin: 09/11/21 15:55 Dose: Not Given Documented by: [id number] Vancomycin HCl (Vancomycin Hcl 125 Mg/2.5ml Soln) 125 mg PO NOW STA Stop: 09/11/21 15:02 Last Admin: 09/11/21 15:40 Dose: 125 mg Documented by: [id number] ECG Additional Comments: Sinus rhythm with Premature atrial complexes in a pattern of bigeminy Abnormal ECG When compared with ECG of 02-MAR-2020 08:56, Premature ventricular complexes are no longer Present Premature atrial complexes are now Present Vent. rate has decreased BY 39 BPM Nonspecific T wave abnormality no longer evident in Lateral leads QT has shortened Code Status & VTE Plan Code Status CODE: DNR/DNI VTE: SCDS, Heparin VTE Prophylaxis Plan VTE Prophylaxis will be ordered: Yes PG Care Time/CCT Total # of Minutes Spent Total Time Spent with Patient: Total time spent is greater than 50% in coordination of care (as documented) at patient's floor/unit and/or counseling patient: Coding Level of Care Code 72898 Initial Inpt Care Lvl 3 Diagnoses Cellulitis of right lower extremity L03.115 Open wound of right heel S91.301A Encounter type: initial encounter Hypertension I10 Hypothyroidism E03.9 COPD (chronic obstructive pulmonary disease) J44.9 Lumbar radiculopathy M54.16 History of Clostridioides difficile colitis Z86.19 Falls frequently R29.6 (1) Open wound of right heel Encounter type: initial encounter Qualified Code(s): S91.301A - Unspecified open wound, right foot, initial encounter
[2021-09-11] MEDS ORDERED: MECLIZINE 12.5 MG TAB PO PRN (18:26)
[2021-09-11] MEDS ORDERED: POLYETHYLENE (MIRALAX) 17 GM PACK PO PRN (18:26)
[2021-09-11] MEDS: DOCUSATE SODIUM 100 MG CAP PO SCH (21:41)
[2021-09-11] MEDS: ASPIRIN 81 MG ECTAB PO SCH (21:41)
[2021-09-11] MEDS: GABAPENTIN 300 MG CAP PO SCH (21:42)
[2021-09-11] MEDS: HEPARIN SOD 5,000 UNIT/0.5 ML VIAL SQ SCH (21:42)
[2021-09-12] MEDS: LEVOTHYROXINE SODIUM 125 MCG TABLET PO SCH (06:15)
[2021-09-12 07:53] LABS: Basophils # (auto) 0.02 K/uL (0-0.2); Basophils % (auto) 0.3 %; Eosinophils # (auto) 0.32 K/uL (0-0.5); Eosinophils % (auto) 4.4 %; Hematocrit (blood only) 36.9 % (37-47); Hemoglobin 11.5 g/dL (12.0-16.0); Immature Granulocytes # (auto) 0.04 K/uL (0.00-0.02); Immature Granulocytes % (auto) 0.6 %; Lymphocytes # (auto) 1.57 K/uL (1.2-3.4); Lymphocytes % (auto) 21.8 %; Mean Corpuscular Hemoglobin 32.2 pg (25-34); Mean Corpuscular Hgb Conc 31.2 g/dL (32-36); Mean Corpuscular Volume 103.4 fL (80-100); Mean Platelet Volume 8.9 fL (7.4-10.4); Monocytes # (auto) 0.73 K/uL (0.11-0.59); Monocytes % (auto) 10.1 %; Neutrophils # (auto) 4.52 K/uL (1.4-6.5); Neutrophils % (auto) 62.8 %; Platelet Count 278 K/uL (130-400); RDW Coefficient of Variation 15.3 % (11.5-14.5); RDW Standard Deviation 58.4 fL (36.4-46.3); Red Blood Count 3.57 M/uL (4.2-5.4)
[2021-09-12 08:22] LABS: BUN Creatinine Ratio 23.3 (10-20); Calcium 9.8 mg/dl (8.5-10.1); Creatinine Clr Calc Pharmacy 22.3 ml/min; Est GFR (African American) 35.4 ml/min; Est GFR (Non-African American) 30.6 ml/min; Potassium 3.6 mmol/L (3.5-5.1)
[2021-09-12] MEDS ORDERED: cefTRIAXone SODIUM 1,000 MG in DEXTROSE 5% 50 ML IV SCH (09:00)
[2021-09-12] MEDS: CHOLECALCIFEROL 1,000 UNITS 25 MCG TAB PO SCH (09:15)
[2021-09-12] MEDS: COLCHICINE 0.6 MG TAB PO SCH (09:16)
[2021-09-12] MEDS: GABAPENTIN 300 MG CAP PO SCH ×3 (09:16→20:09)
[2021-09-12] MEDS: DOCUSATE SODIUM 100 MG CAP PO SCH ×2 (09:16→20:11)
[2021-09-12] MEDS: HEPARIN SOD 5,000 UNIT/0.5 ML VIAL SQ SCH ×2 (09:17→20:09)
[2021-09-12] MEDS: METOPROLOL SUCC 25MG EXT REL TAB PO SCH (09:17)
[2021-09-12] MEDS: UMECLIDINIUM BROMIDE 62.5MCG/BLISTER 7 PUFFS/INHALER INH SCH (09:20)
[2021-09-12] MEDS ORDERED: ALBUTEROL HFA 8 GM INHALER INH PRN (12:06)
--- NOTE | 2021-09-12 18:09 | Hospitalist Progress Note ---
Date of Service September 12, 2021 Assessment & Plan (1) Cellulitis of right lower extremity: Plan: -In the setting of venous stasis of the right leg Patient stasis ulcer We will ask for wound care consult Patient will benefit from MARIA TERESA hose -No evidence of infection Pending placement Discussed with the pillowcase maker (2) Open wound of right heel: Plan: As above - this is also making her limp when she walks secondary to pain and is most likley attributing to her falling more as well as her baseline instability (3) Hypertension: Plan: sporadic control- likley well controlled while in house and getting all her medications - continue BB (4) Falls frequently: Plan: As above- will likely benefit from rehab vs. SNF for extended period - family would also like her to be assisted with her falls at home (5) Hypothyroidism: Plan: Continue synthroid (6) COPD (chronic obstructive pulmonary disease): Plan: Continue HARDY, Continue Spiriva (7) Lumbar radiculopathy: Plan: Chronic with postlaminectomy syndrome (8) History of Clostridioides difficile colitis: Plan: As above - defer for continued prophylaxis treatment Admission and Anticipated Discharge Date Admission Date: September 11, 2021 Review of Systems Review of Systems: REVIEW OF SYSTEMS: Constitutional: No fever, sweats or chills Eyes: No diplopia, no worsening or blurred vision ENT: normal hearing, no trouble swallowing Respiratory: No cough, sputum, dyspnea at rest or on exertion Cardiovascular: No chest pain, tightness or palpitations Abdomen: No pain, nausea, vomiting, diarrhea or constipation Musculoskeletal: (+) generalized weakness, falls, ulceration to right heel. No joint pain, calf pain, swelling Neurologic: (+) weakness, or balance problems, numbness/tingling Psychiatric: No anxiety or depression Skin: No rash or itch Physical Exam Physical Exam: PHYSICAL EXAM: General: awake, alert, Head: Normocephalic, atraumatic ENT: PERRLA, EOMI, no pharyngeal exudate, mucous membranes moist Neuro: AAO x 3, speech clear and appropriate, strength intact bilaterally 5/5, sensation intact and equal all extremities and dermatomes, no pronator drift Chest: equal rise and fall of the chest, no accessory muscle use, no heaves or thrills, Clear to auscultation, on room air, Cardiac: Regular rate and rhythm, telemetry reviewed, skin warm dry, cap refill <3 seconds, peripheral pulses +2 no JVD, no murmur, +2 edema right lower leg GI: NABS x 4 quadrants, soft, nontender to palpation, no rebound, guarding or tenderness : Spontaneously voiding, no pain, no CVA tenderness, Psych: Normal mood and affect Skin: erythema to right tello, edema, 2x3x1 heel ulceration to right heel with surrounding erythema and serous drainage Results & Data Results & Data ([facility]) Vital Signs (Past 12 Hours) Vital Signs Temp Pulse Resp BP Pulse Ox 09/12/21 07:26 36.4 C L 65 16 135/60 94 PG Care Time/CCT Total # of Minutes Spent Total Time Spent with Patient: Total time spent is greater than 50% in coordination of care (as documented) at patient's floor/unit and/or counseling patient: Coding Level of Care Code 08573 Subseq Hosp Care Lvl 2 Diagnoses Cellulitis of right lower extremity L03.115 Open wound of right heel S91.301A Encounter type: initial encounter Hypertension I10 Falls frequently R29.6 Hypothyroidism E03.9 COPD (chronic obstructive pulmonary disease) J44.9 Lumbar radiculopathy M54.16 History of Clostridioides difficile colitis Z86.19 (1) Open wound of right heel Encounter type: initial encounter Qualified Code(s): S91.301A - Unspecified open wound, right foot, initial encounter
[2021-09-12] MEDS: SIMVASTATIN 20 MG TAB PO SCH (20:09)
[2021-09-12] MEDS: ASPIRIN 81 MG ECTAB PO SCH (20:09)
[2021-09-13] MEDS: LEVOTHYROXINE SODIUM 125 MCG TABLET PO SCH (06:01)
[2021-09-13 06:30] LABS: Basophils # (auto) 0.01 K/uL (0-0.2); Basophils % (auto) 0.1 %; Eosinophils # (auto) 0.32 K/uL (0-0.5); Eosinophils % (auto) 4.2 %; Hematocrit (blood only) 37.4 % (37-47); Hemoglobin 11.8 g/dL (12.0-16.0); Immature Granulocytes # (auto) 0.04 K/uL (0.00-0.02); Immature Granulocytes % (auto) 0.5 %; Lymphocytes # (auto) 2.01 K/uL (1.2-3.4); Lymphocytes % (auto) 26.3 %; Mean Corpuscular Hemoglobin 31.4 pg (25-34); Mean Corpuscular Hgb Conc 31.6 g/dL (32-36); Mean Corpuscular Volume 99.5 fL (80-100); Mean Platelet Volume 9.1 fL (7.4-10.4); Monocytes # (auto) 0.95 K/uL (0.11-0.59); Monocytes % (auto) 12.5 %; Neutrophils % (auto) 56.4 %; Platelet Count 288 K/uL (130-400); RDW Coefficient of Variation 15.3 % (11.5-14.5); RDW Standard Deviation 55.7 fL (36.4-46.3); Red Blood Count 3.76 M/uL (4.2-5.4); White Blood Count 7.63 K/uL (4.8-10.8)
[2021-09-13 06:54] LABS: BUN Creatinine Ratio 28.7 (10-20); Calcium 10.1 mg/dl (8.5-10.1); Creatinine Clr Calc Pharmacy 23.4 ml/min; Est GFR (African American) 37.5 ml/min; Est GFR (Non-African American) 32.4 ml/min; Magnesium 1.9 mg/dl (1.7-2.4); Potassium 3.6 mmol/L (3.5-5.1)
[2021-09-13] MEDS: HEPARIN SOD 5,000 UNIT/0.5 ML VIAL SQ SCH ×2 (08:48→19:50)
[2021-09-13] MEDS: COLCHICINE 0.6 MG TAB PO SCH (08:49)
[2021-09-13] MEDS: GABAPENTIN 300 MG CAP PO SCH ×3 (08:49→19:50)
[2021-09-13] MEDS: CHOLECALCIFEROL 1,000 UNITS 25 MCG TAB PO SCH (08:49)
[2021-09-13] MEDS: UMECLIDINIUM BROMIDE 62.5MCG/BLISTER 7 PUFFS/INHALER INH SCH (08:49)
[2021-09-13] MEDS: METOPROLOL SUCC 25MG EXT REL TAB PO SCH (08:49)
[2021-09-13] MEDS: DOCUSATE SODIUM 100 MG CAP PO SCH ×2 (08:50→19:52)
--- NOTE | 2021-09-13 19:01 | Hospitalist Progress Note ---
Date of Service September 13, 2021 Assessment & Plan (1) Cellulitis of right lower extremity: Plan: -In the setting of venous stasis of the right leg Patient has open wound, culture positive staph, started on doxycycline, finalized cultures pending, patient has varicose vein benefits from outpatient follow-up with surgery, -The patient requires placement, discussed with heel caser, nothing happened to Thursday (2) Open wound of right heel: Plan: As above - this is also making her limp when she walks secondary to pain and is most likley attributing to her falling more as well as her baseline instability (3) Hypertension: Plan: sporadic control- liksumanth well controlled while in house and getting all her medications - continue BB (4) Falls frequently: Plan: As above- will likely benefit from rehab vs. SNF for extended period - family would also like her to be assisted with her falls at home (5) Hypothyroidism: Plan: Continue synthroid (6) COPD (chronic obstructive pulmonary disease): Plan: Continue HARDY, Continue Spiriva (7) Lumbar radiculopathy: Plan: Chronic with postlaminectomy syndrome (8) History of Clostridioides difficile colitis: Plan: As above - defer for continued prophylaxis treatment Admission and Anticipated Discharge Date Admission Date: September 11, 2021 Review of Systems Review of Systems: REVIEW OF SYSTEMS: Constitutional: No fever, sweats or chills Eyes: No diplopia, no worsening or blurred vision ENT: normal hearing, no trouble swallowing Respiratory: No cough, sputum, dyspnea at rest or on exertion Cardiovascular: No chest pain, tightness or palpitations Abdomen: No pain, nausea, vomiting, diarrhea or constipation Musculoskeletal: (+) generalized weakness, falls, ulceration to right heel. No joint pain, calf pain, swelling Neurologic: (+) weakness, or balance problems, numbness/tingling Psychiatric: No anxiety or depression Skin: No rash or itch Physical Exam Physical Exam: PHYSICAL EXAM: General: awake, alert, Head: Normocephalic, atraumatic ENT: PERRLA, EOMI, no pharyngeal exudate, mucous membranes moist Neuro: AAO x 3, speech clear and appropriate, strength intact bilaterally 5/5, sensation intact and equal all extremities and dermatomes, no pronator drift Chest: equal rise and fall of the chest, no accessory muscle use, no heaves or thrills, Clear to auscultation, on room air, Cardiac: Regular rate and rhythm, telemetry reviewed, skin warm dry, cap refill <3 seconds, peripheral pulses +2 no JVD, no murmur, +2 edema right lower leg GI: NABS x 4 quadrants, soft, nontender to palpation, no rebound, guarding or tenderness : Spontaneously voiding, no pain, no CVA tenderness, Psych: Normal mood and affect Skin: erythema to right tello, edema, 2x3x1 heel ulceration to right heel with surrounding erythema and serous drainage Results & Data Results & Data ([facility]) Vital Signs (Past 12 Hours) Vital Signs Temp Pulse Resp BP Pulse Ox 09/13/21 14:18 36.2 C L 68 16 122/71 98 09/13/21 11:00 36.4 C L 66 18 118/64 99 09/13/21 07:59 36.5 C 63 18 117/83 92 PG Care Time/CCT Total # of Minutes Spent Total Time Spent with Patient: Total time spent is greater than 50% in coordination of care (as documented) at patient's floor/unit and/or counseling patient: Coding Level of Care Code 65799 Subseq Hosp Care Lvl 2 Diagnoses Cellulitis of right lower extremity L03.115 Open wound of right heel S91.301A Encounter type: initial encounter Hypertension I10 Falls frequently R29.6 Hypothyroidism E03.9 COPD (chronic obstructive pulmonary disease) J44.9 Lumbar radiculopathy M54.16 History of Clostridioides difficile colitis Z86.19 (1) Open wound of right heel Encounter type: initial encounter Qualified Code(s): S91.301A - Unspecified open wound, right foot, initial encounter
[2021-09-13] MEDS: SIMVASTATIN 20 MG TAB PO SCH (19:50)
[2021-09-13] MEDS: ASPIRIN 81 MG ECTAB PO SCH (19:50)
[2021-09-13] MEDS: DOXYCYCLINE HYCLATE 100 MG CAP PO SCH (22:12)
[2021-09-14 05:51] LABS: Eosinophils # (auto) 0.26 K/uL (0-0.5); Hematocrit (blood only) 35.3 % (37-47); Hemoglobin 11.4 g/dL (12.0-16.0); Immature Granulocytes # (auto) 0.03 K/uL (0.00-0.02); Immature Granulocytes % (auto) 0.5 %; Lymphocytes # (auto) 1.85 K/uL (1.2-3.4); Lymphocytes % (auto) 28.6 %; Mean Corpuscular Hemoglobin 32.3 pg (25-34); Mean Corpuscular Hgb Conc 32.3 g/dL (32-36); Mean Platelet Volume 9.1 fL (7.4-10.4); Monocytes % (auto) 10.8 %; Neutrophils # (auto) 3.63 K/uL (1.4-6.5); Neutrophils % (auto) 56.1 %; Platelet Count 268 K/uL (130-400); RDW Coefficient of Variation 15.2 % (11.5-14.5); RDW Standard Deviation 55.6 fL (36.4-46.3); Red Blood Count 3.53 M/uL (4.2-5.4); White Blood Count 6.47 K/uL (4.8-10.8)
[2021-09-14 06:32] LABS: BUN Creatinine Ratio 32.6 (10-20); Creatinine Clr Calc Pharmacy 25.3 ml/min; Est GFR (African American) 41.4 ml/min; Est GFR (Non-African American) 35.7 ml/min; Magnesium 1.8 mg/dl (1.7-2.4); Potassium 3.7 mmol/L (3.5-5.1)
[2021-09-14] MEDS: LEVOTHYROXINE SODIUM 125 MCG TABLET PO SCH (08:22)
[2021-09-14] MEDS: COLCHICINE 0.6 MG TAB PO SCH (08:27)
[2021-09-14] MEDS: CHOLECALCIFEROL 1,000 UNITS 25 MCG TAB PO SCH (08:27)
[2021-09-14] MEDS: DOXYCYCLINE HYCLATE 100 MG CAP PO SCH (08:27)
[2021-09-14] MEDS: METOPROLOL SUCC 25MG EXT REL TAB PO SCH (08:28)
[2021-09-14] MEDS: HEPARIN SOD 5,000 UNIT/0.5 ML VIAL SQ SCH ×2 (08:28→21:12)
[2021-09-14] MEDS: GABAPENTIN 300 MG CAP PO SCH ×3 (08:28→21:12)
[2021-09-14] MEDS: UMECLIDINIUM BROMIDE 62.5MCG/BLISTER 7 PUFFS/INHALER INH SCH (08:29)
[2021-09-14] MEDS: DOCUSATE SODIUM 100 MG CAP PO SCH ×2 (08:34→21:13)
--- NOTE | 2021-09-14 13:37 | Hospitalist Progress Note ---
Date of Service September 14, 2021 Assessment & Plan (1) Cellulitis of right lower extremity: Plan: -In the setting of venous stasis of the right leg Patient has open wound, culture positive for MRSA, sensitive to clindamycin we will stop doxycycline , finalized cultures pending, patient has varicose vein benefits from outpatient follow-up with surgery, -The patient requires placement, discussed with caser up, nothing happened to Thursday (2) Open wound of right heel: Plan: As above - this is also making her limp when she walks secondary to pain and is most likley attributing to her falling more as well as her baseline instability (3) Hypertension: Plan: sporadic control- likley well controlled while in house and getting all her medications - continue BB (4) Falls frequently: Plan: As above- will likely benefit from rehab vs. SNF for extended period - family would also like her to be assisted with her falls at home (5) Hypothyroidism: Plan: Continue synthroid (6) COPD (chronic obstructive pulmonary disease): Plan: Continue HARDY, Continue Spiriva (7) Lumbar radiculopathy: Plan: Chronic with postlaminectomy syndrome (8) History of Clostridioides difficile colitis: Plan: As above - defer for continued prophylaxis treatment Admission and Anticipated Discharge Date Admission Date: September 11, 2021 Review of Systems Review of Systems: REVIEW OF SYSTEMS: Constitutional: No fever, sweats or chills Eyes: No diplopia, no worsening or blurred vision ENT: normal hearing, no trouble swallowing Respiratory: No cough, sputum, dyspnea at rest or on exertion Cardiovascular: No chest pain, tightness or palpitations Abdomen: No pain, nausea, vomiting, diarrhea or constipation Musculoskeletal: (+) generalized weakness, falls, ulceration to right heel. No joint pain, calf pain, swelling Neurologic: (+) weakness, or balance problems, numbness/tingling Psychiatric: No anxiety or depression Skin: No rash or itch Physical Exam Physical Exam: PHYSICAL EXAM: General: awake, alert, Head: Normocephalic, atraumatic ENT: PERRLA, EOMI, no pharyngeal exudate, mucous membranes moist Neuro: AAO x 3, speech clear and appropriate, strength intact bilaterally 5/5, sensation intact and equal all extremities and dermatomes, no pronator drift Chest: equal rise and fall of the chest, no accessory muscle use, no heaves or thrills, Clear to auscultation, on room air, Cardiac: Regular rate and rhythm, telemetry reviewed, skin warm dry, cap refill <3 seconds, peripheral pulses +2 no JVD, no murmur, +2 edema right lower leg GI: NABS x 4 quadrants, soft, nontender to palpation, no rebound, guarding or tenderness : Spontaneously voiding, no pain, no CVA tenderness, Psych: Normal mood and affect Skin: erythema to right tello, edema, 2x3x1 heel ulceration to right heel with surrounding erythema and serous drainage Results & Data Results & Data ([facility]) Vital Signs (Past 12 Hours) Vital Signs Temp Pulse Resp BP Pulse Ox 09/14/21 07:27 36.5 C 68 16 148/74 H 91 PG Care Time/CCT Total # of Minutes Spent Total Time Spent with Patient: Total time spent is greater than 50% in coordination of care (as documented) at patient's floor/unit and/or counseling patient: Coding Level of Care Code 64528 Subseq Hosp Care Lvl 2 Diagnoses Cellulitis of right lower extremity L03.115 Open wound of right heel S91.301A Encounter type: initial encounter Hypertension I10 Falls frequently R29.6 Hypothyroidism E03.9 COPD (chronic obstructive pulmonary disease) J44.9 Lumbar radiculopathy M54.16 History of Clostridioides difficile colitis Z86.19 (1) Open wound of right heel Encounter type: initial encounter Qualified Code(s): S91.301A - Unspecified open wound, right foot, initial encounter
[2021-09-14] MEDS: MUPIROCIN 2% OINT 22 GM TUBE EXT SCH ×2 (14:13→21:14)
[2021-09-14] MEDS: CLINDAMYCIN HCL 150 MG CAP PO SCH (18:06)
[2021-09-14] MEDS: SIMVASTATIN 20 MG TAB PO SCH (21:12)
[2021-09-14] MEDS: ASPIRIN 81 MG ECTAB PO SCH (21:13)
[2021-09-15] MEDS: ADVANCED PROBIOTIC 1250 MG CAPSULE PO SCH ×3 (00:36→12:47)
[2021-09-15] MEDS: CLINDAMYCIN HCL 150 MG CAP PO SCH ×5 (00:38→23:54)
[2021-09-15] MEDS: LEVOTHYROXINE SODIUM 125 MCG TABLET PO SCH (05:33)
[2021-09-15] MEDS: HEPARIN SOD 5,000 UNIT/0.5 ML VIAL SQ SCH ×2 (08:14→20:45)
[2021-09-15] MEDS: COLCHICINE 0.6 MG TAB PO SCH (08:18)
[2021-09-15] MEDS: UMECLIDINIUM BROMIDE 62.5MCG/BLISTER 7 PUFFS/INHALER INH SCH (08:22)
[2021-09-15] MEDS: METOPROLOL SUCC 25MG EXT REL TAB PO SCH (08:23)
[2021-09-15] MEDS: CHOLECALCIFEROL 1,000 UNITS 25 MCG TAB PO SCH (08:23)
[2021-09-15] MEDS: GABAPENTIN 300 MG CAP PO SCH ×3 (08:24→20:44)
[2021-09-15] MEDS: MUPIROCIN 2% OINT 22 GM TUBE EXT SCH ×2 (08:25→20:45)
[2021-09-15] MEDS: DOCUSATE SODIUM 100 MG CAP PO SCH ×2 (08:26→20:44)
--- NOTE | 2021-09-15 12:30 | Hospitalist Progress Note ---
Date of Service September 15, 2021 Assessment & Plan (1) Cellulitis of right lower extremity: Plan: -In the setting of venous stasis of the right leg Patient has open wound, culture positive for MRSA, sensitive to clindamycin we will stop doxycycline , finalized cultures pending, patient has varicose vein benefits from outpatient follow-up with surgery, -The patient requires placement, discussed with manager of case, nothing happened to Thursday (2) Open wound of right heel: Plan: As above - this is also making her limp when she walks secondary to pain and is most likley attributing to her falling more as well as her baseline instability (3) Hypertension: Plan: sporadic control- likley well controlled while in house and getting all her medications - continue BB (4) Falls frequently: Plan: As above- will likely benefit from rehab vs. SNF for extended period - family would also like her to be assisted with her falls at home (5) Hypothyroidism: Plan: Continue synthroid (6) COPD (chronic obstructive pulmonary disease): Plan: Continue AHRDY, Continue Spiriva (7) Lumbar radiculopathy: Plan: Chronic with postlaminectomy syndrome (8) History of Clostridioides difficile colitis: Plan: As above - defer for continued prophylaxis treatment Admission and Anticipated Discharge Date Admission Date: September 11, 2021 Subjective No acute issues, awaiting for placemnt Physical Exam Physical Exam: PHYSICAL EXAM: General: awake, alert, Head: Normocephalic, atraumatic ENT: PERRLA, EOMI, no pharyngeal exudate, mucous membranes moist Neuro: AAO x 3, speech clear and appropriate, strength intact bilaterally 5/5, sensation intact and equal all extremities and dermatomes, no pronator drift Chest: equal rise and fall of the chest, no accessory muscle use, no heaves or thrills, Clear to auscultation, on room air, Cardiac: Regular rate and rhythm, telemetry reviewed, skin warm dry, cap refill <3 seconds, peripheral pulses +2 no JVD, no murmur, +2 edema right lower leg GI: NABS x 4 quadrants, soft, nontender to palpation, no rebound, guarding or tenderness : Spontaneously voiding, no pain, no CVA tenderness, Psych: Normal mood and affect Skin: erythema to right tello, edema, 2x3x1 heel ulceration to right heel with surrounding erythema and serous drainage Results & Data Results & Data ([facility]) Vital Signs (Past 12 Hours) Vital Signs Temp Pulse Resp BP Pulse Ox 09/15/21 07:39 36.7 C 67 16 146/75 H 92 PG Care Time/CCT Total # of Minutes Spent Total Time Spent with Patient: Total time spent is greater than 50% in coordination of care (as documented) at patient's floor/unit and/or counseling patient: Coding Level of Care Code 08129 Subseq Hosp Care Lvl 1 Diagnoses Cellulitis of right lower extremity L03.115 Open wound of right heel S91.301A Encounter type: initial encounter Hypertension I10 Falls frequently R29.6 Hypothyroidism E03.9 COPD (chronic obstructive pulmonary disease) J44.9 Lumbar radiculopathy M54.16 History of Clostridioides difficile colitis Z86.19 (1) Open wound of right heel Encounter type: initial encounter Qualified Code(s): S91.301A - Unspecified open wound, right foot, initial encounter
[2021-09-15] MEDS: ASPIRIN 81 MG ECTAB PO SCH (20:44)
[2021-09-15] MEDS: SIMVASTATIN 20 MG TAB PO SCH (20:44)
[2021-09-16] MEDS: LEVOTHYROXINE SODIUM 125 MCG TABLET PO SCH (06:17)
[2021-09-16] MEDS: CLINDAMYCIN HCL 150 MG CAP PO SCH ×4 (06:17→22:09)
[2021-09-16] MEDS: UMECLIDINIUM BROMIDE 62.5MCG/BLISTER 7 PUFFS/INHALER INH SCH (08:27)
[2021-09-16] MEDS: HEPARIN SOD 5,000 UNIT/0.5 ML VIAL SQ SCH ×2 (08:27→20:14)
[2021-09-16] MEDS: CHOLECALCIFEROL 1,000 UNITS 25 MCG TAB PO SCH (08:28)
[2021-09-16] MEDS: METOPROLOL SUCC 25MG EXT REL TAB PO SCH (08:28)
[2021-09-16] MEDS: GABAPENTIN 300 MG CAP PO SCH ×3 (08:28→20:14)
[2021-09-16] MEDS: ADVANCED PROBIOTIC 1250 MG CAPSULE PO SCH (08:29)
[2021-09-16] MEDS: COLCHICINE 0.6 MG TAB PO SCH (08:29)
[2021-09-16] MEDS: DOCUSATE SODIUM 100 MG CAP PO SCH ×2 (08:31→20:12)
[2021-09-16] MEDS: MUPIROCIN 2% OINT 22 GM TUBE EXT SCH ×2 (08:31→20:15)
--- NOTE | 2021-09-16 16:48 | Hospitalist Progress Note ---
Date of Service September 16, 2021 Assessment & Plan (1) Cellulitis of right lower extremity: Plan: -In the setting of venous stasis of the right leg Patient has open wound, culture positive for MRSA, sensitive to clindamycin we will stop doxycycline , finalized cultures pending, patient has varicose vein benefits from outpatient follow-up with surgery, -The patient requires placement, discussed with employment case manager, nothing happened to Thursday (2) Open wound of right heel: Plan: As above - this is also making her limp when she walks secondary to pain and is most likley attributing to her falling more as well as her baseline instability (3) Hypertension: Plan: sporadic control- likley well controlled while in house and getting all her medications - continue BB (4) Falls frequently: Plan: As above- will likely benefit from rehab vs. SNF for extended period - family would also like her to be assisted with her falls at home (5) Hypothyroidism: Plan: Continue synthroid (6) COPD (chronic obstructive pulmonary disease): Plan: Continue HARDY, Continue Spiriva (7) Lumbar radiculopathy: Plan: Chronic with postlaminectomy syndrome (8) History of Clostridioides difficile colitis: Plan: As above - defer for continued prophylaxis treatment Admission and Anticipated Discharge Date Admission Date: September 11, 2021 Subjective No acute issues, awaiting for placemnt Physical Exam Physical Exam: PHYSICAL EXAM: General: awake, alert, Head: Normocephalic, atraumatic ENT: PERRLA, EOMI, no pharyngeal exudate, mucous membranes moist Neuro: AAO x 3, speech clear and appropriate, strength intact bilaterally 5/5, sensation intact and equal all extremities and dermatomes, no pronator drift Chest: equal rise and fall of the chest, no accessory muscle use, no heaves or thrills, Clear to auscultation, on room air, Cardiac: Regular rate and rhythm, telemetry reviewed, skin warm dry, cap refill <3 seconds, peripheral pulses +2 no JVD, no murmur, +2 edema right lower leg GI: NABS x 4 quadrants, soft, nontender to palpation, no rebound, guarding or tenderness : Spontaneously voiding, no pain, no CVA tenderness, Psych: Normal mood and affect Skin: erythema to right tello, edema, 2x3x1 heel ulceration to right heel with surrounding erythema and serous drainage Results & Data Results & Data ([facility]) Vital Signs (Past 12 Hours) Vital Signs Temp Pulse Resp BP Pulse Ox 09/16/21 15:02 36.6 C 73 16 138/78 96 09/16/21 07:55 36.5 C 70 18 126/62 94 PG Care Time/CCT Total # of Minutes Spent Total Time Spent with Patient: Total time spent is greater than 50% in coordination of care (as documented) at patient's floor/unit and/or counseling patient: Coding Level of Care Code 77143 Subseq Hosp Care Lvl 1 Diagnoses Cellulitis of right lower extremity L03.115 Open wound of right heel S91.301A Encounter type: initial encounter Hypertension I10 Falls frequently R29.6 Hypothyroidism E03.9 COPD (chronic obstructive pulmonary disease) J44.9 Lumbar radiculopathy M54.16 History of Clostridioides difficile colitis Z86.19 (1) Open wound of right heel Encounter type: initial encounter Qualified Code(s): S91.301A - Unspecified open wound, right foot, initial encounter
[2021-09-16] MEDS: ASPIRIN 81 MG ECTAB PO SCH (20:14)
[2021-09-16] MEDS: SIMVASTATIN 20 MG TAB PO SCH (20:15)
[2021-09-17] MEDS: LEVOTHYROXINE SODIUM 125 MCG TABLET PO SCH (05:51)
[2021-09-17] MEDS: CLINDAMYCIN HCL 150 MG CAP PO SCH ×4 (05:51→23:00)
[2021-09-17] MEDS: UMECLIDINIUM BROMIDE 62.5MCG/BLISTER 7 PUFFS/INHALER INH SCH (08:07)
[2021-09-17] MEDS: MUPIROCIN 2% OINT 22 GM TUBE EXT SCH ×2 (08:07→20:34)
[2021-09-17] MEDS: HEPARIN SOD 5,000 UNIT/0.5 ML VIAL SQ SCH ×2 (08:07→20:33)
[2021-09-17] MEDS: CHOLECALCIFEROL 1,000 UNITS 25 MCG TAB PO SCH (08:08)
[2021-09-17] MEDS: GABAPENTIN 300 MG CAP PO SCH ×3 (08:08→20:33)
[2021-09-17] MEDS: METOPROLOL SUCC 25MG EXT REL TAB PO SCH (08:08)
[2021-09-17] MEDS: COLCHICINE 0.6 MG TAB PO SCH (08:08)
[2021-09-17] MEDS: ADVANCED PROBIOTIC 1250 MG CAPSULE PO SCH (08:08)
[2021-09-17] MEDS: DOCUSATE SODIUM 100 MG CAP PO SCH ×2 (08:09→20:33)
--- NOTE | 2021-09-17 16:50 | Discharge Summary ---
Date of Service September 17, 2021 Admission HPI Per Admitting Provider 89 YOF with medical history of: Frequent falls, lives at home by herself, COPD, postlaminectomy syndrome, CKD, Hypothyroidism, renal artery stenosis. Patient was recenlty discharged on 08/12/21- where she was admitted for falls with multiple rib fractures and ulceration with cellulitis to her right heel. The patient was treated with antibiotics and discharged with Keflex and oral vancomycin for C.DIFF prophylaxis- last had 3-4 years ago. She went to [facility] and was discharged to home about 2 weeks ago. She is accompanied by her son-in- law today and notes that home health has been coming to see her but note s that she has fallen twice that he knows of while she has been at home. The patient went to her graphic coordinator appointment today for follow up of her DANNY/CKD. She was brought to [facility] for falls and not improving cellulits of her right heel and leg. In the [facility] she had CXR, ECG, wound culture and routine labs performed, she had foot xray and venous doppler of the right leg that was negative for oste o and DVT. She was given dose of Rocephin IV and Vancomycin orally, Ancef was discontinued. Overall patient would likely benefit for another PT/OT evaluation and possible rehab vs. SNF. She is concerned for her "foot drop" and tripping while walking. Principal Diagnosis Varicose vein, recurrent fall, deconditioning, venous stasis wound Discharge Exam PHYSICAL EXAM: General: awake, alert, Head: Normocephalic, atraumatic ENT: PERRLA, EOMI, no pharyngeal exudate, mucous membranes moist Neuro: AAO x 3, speech clear and appropriate, strength intact bilaterally 5/5, sensation intact and equal all extremities and dermatomes, no pronator drift Chest: equal rise and fall of the chest, no accessory muscle use, no heaves or thrills, Clear to auscultation, on room air, Cardiac: Regular rate and rhythm, telemetry reviewed, skin warm dry, cap refill <3 seconds, peripheral pulses +2 no JVD, no murmur, +2 edema right lower leg GI: NABS x 4 quadrants, soft, nontender to palpation, no rebound, guarding or tenderness : Spontaneously voiding, no pain, no CVA tenderness, Psych: Normal mood and affect Skin: erythema to right tello, edema, 2x3x1 heel ulceration to right heel with surrounding erythema and serous drainage Discharge Data Allergies Allergy/AdvReac Type Severity Reaction Status Date / Time codeine AdvReac Intermediate GI SYMPTOMS Verified 09/11/21 10:41 oxycodone AdvReac Intermediate GI SYMPTOMS Verified 09/11/21 10:41 Consultations 09/11/21 15:35 ED Decision to Admit Stat Ordered Studies 09/11/21 12:21 US venous doppler LE RT Stat Hospital Course (1) Cellulitis of right lower extremity: -In the setting of venous stasis of the right leg -The patient has a superficial ulcer to her right heel -Wound culture was positive for MRSA Sensitive to clindamycin Completed course of treatment with clindamycin Started on low-dose Lasix BMP needs to be checked in 2 weeks Benefit from leg elevation and MARIA TERESA hose -Follow-up with wound care (2) Varicose vein of leg: The patient has a history of vein stripping Patient benefit to follow-up with a tertiary center for vein stripping and vein ligation Patient benefits from MARIA TERESA hose Patient benefit from leg elevation (3) Open wound of right heel: As above - this is also making her limp when she walks secondary to pain and is most li kley attributing to her falling more as well as her baseline instability (4) Hypertension: sporadic control- likley well controlled while in house and getting all her medications - continue BB (5) Falls frequently: Going to rehab (6) Hypothyroidism: Continue synthroid (7) COPD (chronic obstructive pulmonary disease): Continue HARDY, Continue Spiriva (8) Lumbar radiculopathy: Chronic with postlaminectomy syndrome (9) History of Clostridioides difficile colitis: As above - defer for continued prophylaxis treatment Total Time Total Time Spent Total Time Spent (In Minutes): 45 Discharge Plan Discharge Items Patient Disposition: Transfer [facility] Reason For Visit: R FOOT SWOLLEN/RED Discharge Diagnosis: Deconditioning recurrent falls Activity: Resume your previous activity Bathing: No limitations Sexual Activity: When tolerated Driving/Machine Use: No limitations Non-emergency contact: Primary Care Provider Call non-emergency contact if: you have any medication questions Follow-up/Referrals: Joe Rivera Jr, [Primary Care Provider] - Diet: Heart Healthy Addtl Attending Provider Instructions: You are suffering from venous stasis and varicose veins you need to follow-up with the vascular surgeon for venous stripping Pending Studies at Discharge: No Stand-Alone Forms: My [facility] Skilled Items Patient informed of condition?: Yes DNR: Yes Discharge Level of Care: Skilled Communicable Disease: No Discharge Prognosis: Stable Lines: None Urinary Catheter: No Medications and DC Order Prescriptions: Continued aspirin 81 mg tablet,delayed release (DR/EC) 81 mg PO HS RF: 0 quinine sulfate 200 mg capsule 200 mg PO DAILY RF: 0 ICaps [id number] Tablet Extended Release 2 tab PO DAILY RF: 0 polyethylene glycol 3350 [Miralax] 17 gram Powder In Packet 17 g PO DAILY PRN (Reason: constipation) Qty: 30 RF: 0 meclizine 12.5 mg Tablet 12.5 mg PO Q8 PRN (Reason: dizziness) Qty: 30 RF: 0 docusate sodium 100 mg Capsule 100 mg PO BID Qty: 60 RF: 0 levothyroxine 125 mcg tablet 125 mcg PO DAILY RF: 0 magnesium oxide 400 mg magnesium Tablet 400 mg PO DAILY RF: 0 gabapentin 300 mg capsule 600 mg PO TID RF: 0 colchicine 0.6 mg Tablet 0.6 mg PO DAILY RF: 0 cholecalciferol (vitamin D3) [Vitamin D3] 25 mcg (1,000 unit) Tablet 75 mcg PO DAILY RF: 0 mupirocin 2 % ointment 1 applic TOPICAL DIRECTED RF: 0 metoprolol succinate 25 mg tablet extended release 24 hr 12.5 mg PO DAILY RF: 0 Spiriva with HandiHaler 18 mcg capsule, w/inhalation device 1 cap INHALATION DAILY RF: 0 ProAir RespiClick 90 mcg/actuation aerosol powdr breath activated 2 inh INHALATION DIRECTED RF: 0 simvastatin 20 mg tablet 20 mg PO DAILY Qty: 30 RF: 0 Discontinued prednisolone acetate 1 % Drops,Suspension 1 drp OPR Q2D@0900 Qty: 50 RF: 0 acetazolamide 250 mg tablet 250 mg PO BID RF: 0 Discharge Orders: Discharge Order (Routine); Ordered 09/17/21 Ordered By: Matt Bailey Admission Data Admit Date/Time: 09/11/21 15:48 Attending Provider: Matt Bailey Admit Provider: Ankit Dewitt Primary Care Provider: Joe Rivera Jr Other Providers: Ankit Dewitt ; [facility] ; [facility], ; [facility] ; [facility] Coding Level of Care Code D/C DAY MANAGEMENT >30 MINS Diagnoses Cellulitis of right lower extremity L03.115 Open wound of right heel S91.301A Encounter type: initial encounter Hypertension I10 Falls frequently R29.6 Hypothyroidism E03.9 COPD (chronic obstructive pulmonary disease) J44.9 Lumbar radiculopathy M54.16 History of Clostridioides difficile colitis Z86.19 Varicose vein of leg I83.90
[2021-09-17] MEDS: FUROSEMIDE 20 MG TAB PO SCH (18:00)
[2021-09-17] MEDS: ASPIRIN 81 MG ECTAB PO SCH (20:33)
[2021-09-17] MEDS: SIMVASTATIN 20 MG TAB PO SCH (20:34)
[2021-09-18] MEDS: CLINDAMYCIN HCL 150 MG CAP PO SCH ×2 (05:45→13:21)
[2021-09-18] MEDS: LEVOTHYROXINE SODIUM 125 MCG TABLET PO SCH (05:45)
[2021-09-18] MEDS: GABAPENTIN 300 MG CAP PO SCH ×2 (08:52→13:22)
[2021-09-18] MEDS: ADVANCED PROBIOTIC 1250 MG CAPSULE PO SCH (08:52)
[2021-09-18] MEDS: METOPROLOL SUCC 25MG EXT REL TAB PO SCH (08:52)
[2021-09-18] MEDS: FUROSEMIDE 20 MG TAB PO SCH (08:52)
[2021-09-18] MEDS: HEPARIN SOD 5,000 UNIT/0.5 ML VIAL SQ SCH (08:52)
[2021-09-18] MEDS: CHOLECALCIFEROL 1,000 UNITS 25 MCG TAB PO SCH (08:52)
[2021-09-18] MEDS: COLCHICINE 0.6 MG TAB PO SCH (08:52)
[2021-09-18] MEDS: DOCUSATE SODIUM 100 MG CAP PO SCH (08:53)
[2021-09-18] MEDS: MUPIROCIN 2% OINT 22 GM TUBE EXT SCH (08:53)
[2021-09-18] MEDS: UMECLIDINIUM BROMIDE 62.5MCG/BLISTER 7 PUFFS/INHALER INH SCH (08:53)
== END 2021-09-18 17:58 | DRG 603 ==
LOC: ED 11:56 → SUATTDRO 15:48 → EDINP 15:48 → 3W 19:31

== ENCOUNTER 2021-12-30 06:51 | Inpatient (IN) ==
--- NOTE | 2021-12-30 07:50 | XRay Report ---
XR chest 1V portable CLINICAL HISTORY: SEPSIS TECHNIQUE: Single frontal radiograph of the chest was obtained. Comparison: Comparison is made to chest radiograph 08/06/2021 FINDINGS: No lines and tubes are seen. Cardiomegaly is noted. Calcified aortic knob is seen. Linear densities a re in the bilateral lower lungs. No evidence of pleural effusion or pneumothorax. IMPRESSION: Linear densities in the bilateral lower lungs likely represent atelectasis. Superimposed aspiration/p neumonia cannot be entirely excluded. ACT 112: Negative or not required by law. Electronically signed by: Mhaesh Davis M.D. 12/30/2021 7:48 AM
[2021-12-30] MEDS ORDERED: SODIUM CHLORIDE 0.9% 250 ML IV PRN (08:15)
[2021-12-30 08:16] LABS: Hematocrit (blood only) 17.4 % (34.1-44.9); Hemoglobin 5.3 g/dl (12.0-16.0); Mean Corpuscular Hemoglobin 34.9 pg (25.0-34.0); Mean Corpuscular Hgb Conc 30.5 g/dL (32.0-36.0); Mean Corpuscular Volume 114.5 fL (80.0-100.0); Mean Platelet Volume 9.6 fL (9.4-12.3); Nucleated RBC # (auto) 0.32 K/uL (0-0); Nucleated RBC % (auto) 2.8 %; Platelet Count 353 K/uL (130-400); RDW Coefficient of Variation 23.9 % (11.5-14.5); RDW Standard Deviation 77.4 fL (36.4-46.3); Red Blood Count 1.52 M/uL (3.93-5.22); White Blood Count 11.59 K/ul (4.8-10.8)
[2021-12-30 08:36] LABS: Anisocytosis Present; Basophils # (auto) 0.02 K/uL (0-0.2); Basophils % (auto) 0.2 %; Eosinophils # (auto) 0.19 K/uL (0-0.50); Eosinophils % (auto) 1.6 %; INR 1.2 (0.9-1.1); Immature Granulocytes # (auto) 0.16 K/uL (0.00-0.02); Immature Granulocytes % (auto) 1.4 %; Lymphocytes # (auto) 2.41 K/uL (1.2-3.4); Lymphocytes % (auto) 20.8 %; Macrocytosis Present; Monocytes # (auto) 0.96 K/uL (0.24-0.82); Monocytes % (auto) 8.3 %; Neutrophils # (auto) 7.85 K/uL (1.4-6.5); Neutrophils % (auto) 67.7 %; Partial Thromboplastin Time 26.3 Seconds (21.0-31.0); Polychromasia 2+; Prothrombin Time 12.3 Seconds (9.0-12.0)
[2021-12-30 08:37] LABS: Influenza A virus by PCR Negative (Neg); Influenza B virus by PCR Negative (Neg); RSV by PCR Negative (Neg); SARS CoV2 RNA(COVID-19) InHosp NEGATIVE (Negative)
[2021-12-30 08:37] LABS: Albumin Globulin Ratio 1.8 (0.9-2); Bilirubin,Total 0.4 mg/dl (0.2-1.0); Creatinine Clr Calc Pharmacy 18.4 ml/min; Est GFR (African American) 26.5 ml/min; Est GFR (Non-African American) 22.8 ml/min; Globulin 1.7 gm/dl (2.5-4.0); Magnesium 3.2 mg/dl (1.7-2.4); Total Protein 4.7 gm/dl (6.0-8.3)
[2021-12-30 08:38] LABS: Troponin I High Sensitivity 12.8 pg/ml (0-14)
--- NOTE | 2021-12-30 09:42 | History & Physical Report ---
Date of Service December 30, 2021 Assessment & Plan (1) Anemia: Plan: -Admit to medicine on tele -Hgb today at 5.7, noted to be 11.4 in september -No signs of active bleeding on exam, ED reported + guaiac test on JUSTIN -Patient started on protonix drip and ordered 2 units PRBC -Noted to be afebrile, hemodynamically stable, and stavble on 3L NC -MCV elevated at 114, will add on B12 and folate levels. -Patient with 2 large bore IV's in place -Will get q6h CBC to monitor Hgb and HCT -GI consult placed, will keep on clear liquids for now and NPO except meds after 2400 -Patient has a Hx of treated DVT with Xarelto, appears to have completed treatment (2) Acute respiratory failure with hypoxia: Plan: -Patient was noted to be hypoxic on RA at [facility] and in the ED, stable on 3L NC -Patient denies O2 at baseline -RVP and procal were negative, possible LLL atelectasis on CXR -Most likely due to acute anemia and hx of COPD -Monitor SpO2 as her HgB is stabilized -FLY TIER breathing treatments ordered, added q6h albuterol and incentive spirometry -If patient remains hypoxic after Hgb is stable would consider CTPE with her hx of DVT (3) COPD (chronic obstructive pulmonary disease): Plan: -See acute hypoxic resp failure (4) HTN (hypertension): Plan: -Hold FLY TIER metoprolol for now as she was noted to be hypotensive this am and possible GI bleed (5) Peripheral vascular disease: Plan: -Hold FLY TIER aspirin for now with possible GI bleed (6) Right foot drop: Plan: -At baseline (7) Ambulatory dysfunction: Plan: -at baseline and currently residing at [facility] (8) Hypothyroid: Plan: -FLY TIER levothyroxine (9) Open wound of right heel: Plan: -Currently clean and wrapped, continue wound care (10) Dyslipidemia: Plan: -FLY TIER simvastatin (11) Greater trochanteric bursitis: Plan: -Continue PT/OT Plan The patient was discussed with Dr. Blake at the time of admission History of Present Illness Chief Complaint: Hypotension with hypoxia Primary Care Provider: [facility] Alona is an 89 year old female with a PMH significant for HTN, hypothyroidism, COPD, previous DVT treated with xarelto, hypercalcemia, Renal artery stenosis, PAD, DMII,spinal stenosis, cervical radiculopathy, postlaminectomy syndrome of the lumbar spine, right foot drop, associated ambulatory dysfunction, CKD III, osteoporosis, who presented to the [facility] ED on 12/30/21 via EMS from [facility] for hypotension and hypoxia. Per the patient, she has been feeling more weak over the past week and started experiencing exertional dyspnea during PT/OT. She states that her BP was found to be low this AM and her O2 saturation was also low so EMS was called. When asked, the patient denies need for O2 at baseline and is unsure if she is currently on blood thinners. She denies recent fevers but has been cold, she denies chest pain, abdominal pain, nausea, vomiting, dysuria, hematuria, and recent falls. When asked she states her last BM was yesterday but is legally blind so she is unsure if there was blood or melena. In the ED the patient was found to be hemodynamically stable, afebrile, and hypoxic on RA in the mid-low 80's, she was placed on 3L NC and remained stable. Her Hgb was noted to be 5.7, down from 11.4 back in september of 2021. BUN and Cr were increased compared to baseline and her MCV was noted to be elevated. Per the ED staff, the patient was guaiac + on JUSTIN. Chest xray noted some LLL consolidation possibly related to aspiration pneumonia and her mag was slightly elevated at 3.2. She was started on a protonix drip and ordered 2 units PRBCs by the ED. Allergies Allergy/AdvReac Type Severity Reaction Status Date / Time codeine AdvReac Intermediate GI SYMPTOMS Verified 11/12/21 11:44 oxycodone AdvReac Intermediate GI SYMPTOMS Verified 11/12/21 11:44 Home Medications Medication Instructions Recorded Confirmed Type aspirin 81 mg tablet,delayed 81 mg PO HS 02/23/18 11/12/21 History release [id number]-P5-Q-S-ykwpwj-cfedyfk-min 2 tab PO DAILY 02/29/20 11/12/21 History 3,300 unit-5 mg-200mg-75 unit tablet ER (ICaps) docusate sodium 100 mg capsule 100 mg PO BID #60 caps 03/06/20 11/12/21 Rx meclizine 12.5 mg tablet 12.5 mg PO Q8 PRN dizziness #30 03/06/20 11/12/21 Rx tabs polyethylene glycol 3350 17 gram 17 g PO DAILY PRN constipation #30 03/06/20 11/12/21 Rx oral powder packet (Miralax) ea albuterol sulfate 90 mcg/actuation 2 inh inhalation DIRECTED 07/26/21 11/12/21 History breath activated powder inhaler (ProAir RespiClick) metoprolol succinate 25 mg 12.5 mg PO DAILY 07/26/21 11/12/21 History tablet,extended release 24 hr mupirocin 2 % topical ointment 1 applic topical DIRECTED 07/26/21 10/15/21 History tiotropium bromide 18 mcg capsule 1 cap inhalation DAILY 07/26/21 11/12/21 History with inhalation device (Spiriva with HandiHaler) simvastatin 20 mg tablet 20 mg PO DAILY #30 tabs 08/12/21 11/12/21 Rx colchicine 0.6 mg tablet 0.6 mg PO DAILY 09/11/21 11/12/21 History gabapentin 300 mg capsule 600 mg PO TID 09/11/21 11/12/21 History levothyroxine 125 mcg tablet 125 mcg PO DAILY 09/11/21 11/12/21 History quinine sulfate 200 mg capsule 200 mg PO DAILY 09/11/21 11/12/21 History furosemide 20 mg tablet (Lasix) 20 mg PO DAILY #30 tabs 09/17/21 11/12/21 Rx magnesium oxide 400 mg PO BID 10/04/21 11/12/21 History acetaminophen 325 mg tablet 325 mg PO QID PRN 11/12/21 11/12/21 History Past Med/Surg History Medical History (Updated 12/30/21 @ 11:44 by Blayne Quintana PA-C) DANNY (acute kidney injury) Cellulitis of right lower extremity Chronic lumbar pain DVT (deep venous thrombosis) Dyslipidemia Edema Fracture of transverse process of vertebra Frozen shoulder Right History of Clostridioides difficile colitis Intertrochanteric fracture of right hip Lumbar postlaminectomy syndrome Multiple fractures of thoracic spine Open wound of right heel Osteoarthritis Osteoporosis Ovarian cystic mass Pulmonary nodule Right humeral fracture Rotator cuff arthropathy of left shoulder S/P right hip fracture Sacroiliitis Serum calcium elevated Stage III chronic kidney disease Surgical History History of appendectomy History of arthroscopic knee surgery Right History of cholecystectomy History of dilatation and curettage History of herniorrhaphy History of lumbar surgery L3 through L5 fusion History of tonsillectomy and adenoidectomy History of tubal ligation History of vascular surgery Family History Denies family history of Kidney disease Social History Smoking Status: Former smoker Hx Alcohol Use: No Hx Substance Use: No Preferred Language: Estonian Communication Ability: Effective Hooker On Required: No Beliefs That Will Affect Care: None marital status: / Current Living Situation: Alone Feels Safe at Home: Yes Assistive Devices: Walker Review of Systems Review of Systems: Denies current headache, changes in vision, hearing, taste, and smell, chest pain, cough, abdominal pain, nausea, vomiting, diarrhea, dysuria, and recent falls. Physical Exam Physical Exam: Physical Exam: General: In no acute distress, stated age,chronically ill-appearing, malnourished HEENT: Normocephalic, atraumatic, no scleral icterus, positive conjunctival pallor, pupils around round, symmetrical, and reactive to light, dry mucus membranes, trachea midline, no thyromegaly Chest/Pulm: No respiratory distress, symmetrical chest expansion, decreased breath sounds in the left lower lobe Cardiac: RRR, no murmurs noted Abdomen: Negative for ascites and bruising, normoactive bowel sounds, soft, non-tender to palpation throughout Musculoskeletal: patient with intact ROM in the BL upper extremities, RLE currently with chronic heel ulcer bandaged and without signd of bleeding or drainage Neuro: Alert and oriented to person, place, month, year, and president, no focal defects, CN II-XII tested and intact, finger to nose test negative, no tremors noted Psych: No acute distress, calm and cooperative during the exam Results & Data Results & Data ([facility]) Vital Signs (Past 12 Hours) Vital Signs Temp Pulse Pulse Resp BP BP Pulse Ox 12/30/21 09:02 26 H 97 12/30/21 09:02 81 26 H 118/51 L 97 12/30/21 08:02 77 26 H 113/38 L 95 12/30/21 08:02 77 26 H 96 12/30/21 08:02 26 H 95 12/30/21 07:01 96 12/30/21 06:53 36.8 C 82 18 120/49 L 84 L O2 Del Method O2 Flow Rate 12/30/21 09:02 Room Air 12/30/21 09:02 Nasal Cannula 3 12/30/21 08:02 Nasal Cannula 12/30/21 08:02 Nasal Cannula 12/30/21 08:02 Room Air 12/30/21 07:01 Nasal Cannula 3 12/30/21 06:53 Room Air Laboratory Results Abnormal lab results 12/30/21 12/30/21 12/30/21 Range/Units 08:01 08:01 08:01 WBC 11.59 H (4.8-10.8) K/ul RBC 1.52 L (3.93-5.22) M/uL Hgb 5.3 L* (12.0-16.0) g/dl Hct 17.4 L* (34.1-44.9) % MCV 114.5 H (80.0-100.0) fL MCH 34.9 H (25.0-34.0) pg MCHC 30.5 L (32.0-36.0) g/dL RDW Std Deviation 77.4 H (36.4-46.3) fL RDW Coeff of Nuris 23.9 H (11.5-14.5) % Neut # (Auto) 7.85 H (1.4-6.5) K/uL Bent # (Auto) 0.96 H (0.24-0.82) K/uL Immature Gran # (Auto) 0.16 H (0.00-0.02) K/uL Absolute Nucleated RBC 0.32 H (0-0) K/uL PT 12.3 H (9.0-12.0) Seconds INR 1.2 H (0.9-1.1) BUN 84 H (6-23) mg/dl Creatinine 1.91 H (0.6-1.2) mg/dl BUN/Creatinine Ratio 44.0 H (10-20) Glucose 124 H (70-99(Fasting)) mg/dl Magnesium 3.2 H (1.7-2.4) mg/dl Total Protein 4.7 L (6.0-8.3) gm/dl Albumin 3.0 L (3.4-5.0) gm/dl Globulin 1.7 L (2.5-4.0) gm/dl Crossmatch 12/30/21 Range/Units 08:35 WBC (4.8-10.8) K/ul RBC (3.93-5.22) M/uL Hgb (12.0-16.0) g/dl Hct (34.1-44.9) % MCV (80.0-100.0) fL MCH (25.0-34.0) pg MCHC (32.0-36.0) g/dL RDW Std Deviation (36.4-46.3) fL RDW Coeff of Nuris (11.5-14.5) % Neut # (Auto) (1.4-6.5) K/uL Bent # (Auto) (0.24-0.82) K/uL Immature Gran # (Auto) (0.00-0.02) K/uL Absolute Nucleated RBC (0-0) K/uL PT (9.0-12.0) Seconds INR (0.9-1.1) BUN (6-23) mg/dl Creatinine (0.6-1.2) mg/dl BUN/Creatinine Ratio (10-20) Glucose (70-99(Fasting)) mg/dl Magnesium (1.7-2.4) mg/dl Total Protein (6.0-8.3) gm/dl Albumin (3.4-5.0) gm/dl Globulin (2.5-4.0) gm/dl Crossmatch See Detail Diagnostic Findings Chest X-Ray 12/30/21 07:27 XR chest 1V portable CLINICAL HISTORY: SEPSIS TECHNIQUE: Single frontal radiograph of the chest was obtained. Comparison: Comparison is made to chest radiograph 08/06/2021 FINDINGS: No lines and tubes are seen. Cardiomegaly is noted. Calcified aortic knob is seen. Linear densities are in the bilateral lower lungs. No evidence of pleural effusion or pneumothorax. IMPRESSION: Linear densities in the bilateral lower lungs likely represent atelectasis. Superimposed aspiration/pneumonia cannot be entirely excluded. ACT 112: Negative or not required by law. Electronically signed by: Mahesh Davis M.D. 12/30/2021 7:48 AM Medications Administered Pantoprazole Sodium 40 mg/ (Dextrose) 100 mls @ 20 mls/hr IV Q5H GEENA Stop: 01/29/22 09:44 Last Infusion: 12/30/21 10:27 Dose: 8 mg/hr, 20 mls/hr Documented By: Admin: 12/30/21 10:20 Dose: 8 mg/hr, 20 mls/hr Documented By: KATE ECG Additional Comments: My read: Sinus rhythm with PAC's, no acute ST-segment or T-wave changes noted Code Status & VTE Plan Code Status DNR/DNI VTE Prophylaxis Plan VTE Prophylaxis will be ordered: Yes Supervising Physician Co-Signing Physician Notes Patient seen and examined, chart reviewed, case discussed with Rajesh Navarrete PA-C and I agree with the assessment and plan as above except as otherwise noted Labs and images reviewed Velvet is an 89-year-old female with a past medical history of radiculopathy, right foot drop, peripheral vascular disease, and PACs presented to the emergency department for weakness and was found to have acute anemia to 5.3. At bedside patient is alert, nondistressed. Poor historian of her medications. Does feel globally fatigued "I am not running any marathons ", but denies chest pain, chest pressure, shortness of breath, presyncope, syncope, nausea, vomiting at time of bedside assessment. She reports she has not had any bleeding to her knowledge, does not check her bowel movements for blood. She reports she takes aspirin at baseline, does not think she takes any other blood thinners or NSAIDs. Denies abdominal pain at bedside assessment. Blood is running, Hedrick is in place draining light yellow urine. She reports her right heel is supposed to be offloaded/decompressed with the calf rested on a towel, rolled towel placed for patient comfort. No other questions at bedside. Acute blood loss anemia, suspect 2/2 GI bleed Past DOAC use for DVT, reportedly stopped after course was completed. Pending reconciliation from [facility], did call was sent to [facility]. We will recheck this afternoon Baseline hemoglobin approximately 10.811.8, 5.3 on admission MCV 114 Guaiac positive Folate, B12, iron panel pending Continue Protonix gtt for 72 hours, convert to twice daily Mild leukocytosis to 11.59, suspect reactive Creatinine acutely elevated as noted GI consulted for EGD evaluation Trend hemoglobin for appropriate rise and, every 6 hours DANNY on CKD Creatinine baseline approximately 1.41.6, 1.91 on admission Suspect in the setting of volume depletion/acute bleeding Anemia management as above Hold Lasix COPD on baseline oxygen CXR: Linear densities bilateral lower lung suspicious for atelectasis. Patient on 3 L nasal cannula on admission Treat anemia as above PCT negative Defer additional antibiotic treatment at this time, follow clinically inh/mngmt as noted above Thyroidism: Continue Synthroid, TSH pending Hyperlipidemia: Continue statin Agree with management as above PG Care Time/CCT Total # of Minutes Spent Total Time Spent with Patient: Total time spent is greater than 50% in coordination of care (as documented) at patient's floor/unit and/or counseling patient: C[place] [address] Initial Inpt Care Lvl 2 Patient Type Established Medical Decision Making Moderate Complexity Diagnoses Anemia D64.9 Acute respiratory failure with hypoxia J96.01 COPD (chronic obstructive pulmonary disease) J44.9 HTN (hypertension) I10 Peripheral vascular disease I73.9 Right foot drop M21.371 Ambulatory dysfunction R26.2 Hypothyroid E03.9 Open wound of right heel S91.301A Encounter type: initial encounter Dyslipidemia E78.5 Greater trochanteric bursitis M70.60 (1) Open wound of right heel Encounter type: initial encounter Qualified Code(s): S91.301A - Unspecified open wound, right foot, initial encounter
[2021-12-30] MEDS ORDERED: PANTOprazole 80 MG in DEXTROSE 5% 100 ML IV ONE (09:45)
[2021-12-30] MEDS: PANTOprazole 40 MG in DEXTROSE 5% 100 ML IV SCH ×3 (10:20→20:57)
[2021-12-30 11:01] LABS: Appearance Urine Clear (Clear); Bacteria Urine Automated 1+ (Negative); Bilirubin Urine Negative (Negative); Blood Urine Negative (Negative); Color Urine Yellow; Epithelial Cell Urine Auto 0-5 /lpf (0-5); Glucose Urine UA Negative (Negative); Ketones Urine Negative (Negative); Leukocyte Esterase Urine 1+ (Negative); Nitrite Urine Negative (Negative); Protein Urine Negative (Negative); RBC Urine Automated 0-4 /hpf (0-4); Specific Gravity Urine 1.013 (1.000-1.030); Urobilinogen Urine Negative (Negative); WBC Urine Automated >30 /hpf (0-5); pH Urine 6.5 (4.5-7.5)
[2021-12-30 11:13] LABS: Folate (Folic Acid) > 22.30 ng/ml (>5.38)
[2021-12-30 11:14] LABS: Vitamin B12 470 pg/ml (180-914)
[2021-12-30] MEDS ORDERED: MECLIZINE 12.5 MG TAB PO PRN (11:36)
[2021-12-30] MEDS ORDERED: GLUCOSE 40% GEL 15 GM TUBE PO PRN (11:36)
[2021-12-30] MEDS ORDERED: CARBOHYDRATES FOR HYPOGLYCEMIA PO PRN (11:36)
[2021-12-30] MEDS ORDERED: DEXTROSE 50% 50 ML SYRINGE IV PRN (11:36)
[2021-12-30] MEDS ORDERED: GLUCOSE 10 TAB/TUBE PO PRN (11:36)
[2021-12-30] MEDS ORDERED: GLUCAGON FOR INJ 1 MG VIAL SQ PRN (11:36)
[2021-12-30] MEDS ORDERED: ACETAMINOPHEN 325 MG TAB PO PRN (11:36)
--- NOTE | 2021-12-30 11:43 | Gastrointestinal Consultation ---
Date of Consultation December 30, 2021 Assessment & Plan (1) Anemia: (2) Heme positive stool: Plan Patient is an 89 year old female with a PMH significant for HTN, hypothyroidism, COPD, previous DVT on xarelto, hypercalcemia, Renal artery stenosis, PAD, DMII,spinal stenosis, cervical radiculopathy, postlaminectomy syndrome of the lumbar spine, right foot drop, associated ambulatory dysfunction, CKD III, osteoporosis, who presented to the [facility] ED on 12/30/21 via EMS from [facility] for issues with hypotension and hypoxia. hgb found to be 5.3 which is down from 11.4 in 09/2021. found to be heme positive in ED. no obvious gi bleeding mentioned but patient admits she is blind. However, she also reports constipation at baseline which would not be how an acute upper gi bleed would present. - discussed case with Dr. Lees who advised on plan. - continue with protonix drip. - continue with transfusion of 2 units of PRBC. follow H/H. transfuse as needed. - no urgency for EGD at this time since no obvious bleeding. I did discuss with patient about an egd and she tells me that given her age and comorbidities she would prefer to defer any endoscopic work up at this time and just monitor for any overt bleeding and watch labs. will continue to trend labs. Supervising Physician Co-Signing Physician Notes Agree with KINGA King as above Gen: Chronic ill-appearing, noted pallor, NAD Abd: Soft, NT, ND, +BS Continue Protonix gtt at present Patient is not interested in EGD at this time, and states that she would like only medical management Transfuse PRN to maintain H/H around 8/24 History of Present Illness Reason for Consultation: acute anemia with guaiac positive stools in ED Requesting Physician: Rajesh Navarrete PA-C Attending Physician: Moe Blake MD History of Present Illness Patient is an 89 year old female with a PMH significant for HTN, hypothyroidism, COPD, previous DVT on xarelto, hypercalcemia, Renal artery stenosis, PAD, DMII,spinal stenosis, cervical radiculopathy, postlaminectomy syndrome of the lumbar spine, right foot drop, associated ambulatory dysfunction, CKD III, osteoporosis, who presented to the [facility] ED on 12/30/21 via EMS from [facility] for issues with hypotension and hypoxia. The patient tells me that she has been feeling weaker than usual over the past week and started experiencing exertional dyspnea during PT/OT. At that time her BP and O2 saturation was found to be low. EMS was contacted for transport to the ED. In ED her hgb was found to be 5.7 which is down from 09/2021 when it was 11.4. She was found to have heme positive stools in the ED. She was started on protonix drip and ordered 2 units of prbc. Typically she moves her bowels once every few days. uses stool softeners to help with this. she denies any melena or brbpr but admits she is blind so she cannot tell. She denies any nausea, vomiting, heartburn, dysphagia, abdominal pain, unintentional weight loss. she has never had an egd. She tells me last colonoscopy was done 9 years ago in [place] and was unremarkable per patient. she is unsure if she has ever had polyps. Allergies Allergy/AdvReac Type Severity Reaction Status Date / Time codeine AdvReac Intermediate GI SYMPTOMS Verified 11/12/21 11:44 oxycodone AdvReac Intermediate GI SYMPTOMS Verified 11/12/21 11:44 Home Medications Medication Instructions Recorded Confirmed Type aspirin 81 mg tablet,delayed 81 mg PO HS 02/23/18 11/12/21 History release [id number]-[id number]-C-L-ravqsh-spsokwk-min 2 tab PO DAILY 02/29/20 11/12/21 History 3,300 unit-5 mg-200mg-75 unit tablet ER (ICaps) docusate sodium 100 mg capsule 100 mg PO BID #60 caps 03/06/20 11/12/21 Rx meclizine 12.5 mg tablet 12.5 mg PO Q8 PRN dizziness #30 03/06/20 11/12/21 Rx tabs polyethylene glycol 3350 17 gram 17 g PO DAILY PRN constipation #30 03/06/20 11/12/21 Rx oral powder packet (Miralax) ea albuterol sulfate 90 mcg/actuation 2 inh inhalation DIRECTED 07/26/21 11/12/21 History breath activated powder inhaler (ProAir RespiClick) metoprolol succinate 25 mg 12.5 mg PO DAILY 07/26/21 11/12/21 History tablet,extended release 24 hr mupirocin 2 % topical ointment 1 applic topical DIRECTED 07/26/21 10/15/21 History tiotropium bromide 18 mcg capsule 1 cap inhalation DAILY 07/26/21 11/12/21 History with inhalation device (Spiriva with HandiHaler) simvastatin 20 mg tablet 20 mg PO DAILY #30 tabs 08/12/21 11/12/21 Rx colchicine 0.6 mg tablet 0.6 mg PO DAILY 09/11/21 11/12/21 History gabapentin 300 mg capsule 600 mg PO TID 09/11/21 11/12/21 History levothyroxine 125 mcg tablet 125 mcg PO DAILY 09/11/21 11/12/21 History quinine sulfate 200 mg capsule 200 mg PO DAILY 09/11/21 11/12/21 History furosemide 20 mg tablet (Lasix) 20 mg PO DAILY #30 tabs 09/17/21 11/12/21 Rx magnesium oxide 400 mg PO BID 10/04/21 11/12/21 History acetaminophen 325 mg tablet 325 mg PO QID PRN 11/12/21 11/12/21 History Patient History Medical History (Updated 12/30/21 @ 11:44 by Blayne Quintana PA-C) DANNY (acute kidney injury) Cellulitis of right lower extremity Chronic lumbar pain DVT (deep venous thrombosis) Dyslipidemia Edema Fracture of transverse process of vertebra Frozen shoulder Right History of Clostridioides difficile colitis Intertrochanteric fracture of right hip Lumbar postlaminectomy syndrome Multiple fractures of thoracic spine Open wound of right heel Osteoarthritis Osteoporosis Ovarian cystic mass Pulmonary nodule Right humeral fracture Rotator cuff arthropathy of left shoulder S/P right hip fracture Sacroiliitis Serum calcium elevated Stage III chronic kidney disease Surgical History History of appendectomy History of arthroscopic knee surgery Right History of cholecystectomy History of dilatation and curettage History of herniorrhaphy History of lumbar surgery L3 through L5 fusion History of tonsillectomy and adenoidectomy History of tubal ligation History of vascular surgery Family History Denies family history of Kidney disease Social History Smoking Status: Never smoker Hx Alcohol Use: No Hx Substance Use: No Preferred Language: British Communication Ability: Effective Place Change Roof Bolter Required: No Beliefs That Will Affect Care: None marital status: / Current Living Situation: Alf Feels Safe at Home: Yes Safety Concerns: Feels Safe At This Time Assistive Devices: Walker Review of Systems Review of Systems: All systems reviewed & are unremarkable except as noted in HPI & below Constitutional: + fatigue, + weakness and + daytime sleepiness Physical Exam Constitutional: WD/WN, vitals as above Eyes: + anicteric sclerae and PERRL Respiratory: normal respiratory effort. decreased breath sounds over b/l lower lobes. Cardiovascular: RRR, no murmur, no edema Gastrointestinal (Abdomen): normal bowel sounds, soft, nontender, no hepatosplenomegaly Skin: no rashes, warm and dry Psychiatric: Orientation: alert and oriented x 3 Affect: euthymic affect Results & Data ([facility]) Vital Signs (Past 12 Hours) Vital Signs Temp Pulse Pulse Resp BP BP Pulse Ox 12/30/21 10:39 36.5 C 70 16 135/96 98 12/30/21 10:15 72 24 114/42 L 99 12/30/21 10:22 24 12/30/21 09:02 26 H 97 12/30/21 09:02 81 26 H 118/51 L 97 12/30/21 08:02 77 26 H 113/38 L 95 12/30/21 08:02 77 26 H 96 12/30/21 08:02 26 H 95 12/30/21 07:01 96 12/30/21 06:53 36.8 C 82 18 120/49 L 84 L O2 Del Method O2 Flow Rate 12/30/21 10:39 12/30/21 10:15 Room Air 12/30/21 10:22 Nasal Cannula 3 12/30/21 09:02 Room Air 12/30/21 09:02 Nasal Cannula 3 12/30/21 08:02 Nasal Cannula 12/30/21 08:02 Nasal Cannula 12/30/21 08:02 Room Air 12/30/21 07:01 Nasal Cannula 3 12/30/21 06:53 Room Air PG Care Time/CCT Total # of Minutes Spent Total Time Spent with Patient: Total time spent is greater than 50% in coordination of care (as documented) at patient's floor/unit and/or counseling patient: Coding Level of Care Code 49966 Initial Inpt Care Lvl 3 Diagnoses Anemia D64.9 Heme positive stool R19.5
[2021-12-30] MEDS: ALBUTEROL 0.083% NEBU SOLN 3 ML VIAL INH SCH ×2 (12:37→19:21)
--- NOTE | 2021-12-30 12:43 | Electrocardiogram Report ---
Test Reason : Blood Pressure : / mmHG Vent. Rate : 081 BPM Atrial Rate : 048 BPM P-R Int : 000 ms QRS Dur : 090 ms QT Int : 384 ms P-R-T Axes : 000 -07 057 degrees QTc Int : 446 ms Poor data quality, interpretation may be adversely affected Sinus rhythm with frequent Premature atrial complexes Nonspecific ST abnormality Abnormal ECG When compared with ECG of 26-JUL-2021 17:14, No significant change Confirmed by Last Valencia ([id number]) on 12/30/2021 12:43:22 PM Referred By: REFERRED SELF Confirmed By:Last Valencia
[2021-12-30] MEDS: GABAPENTIN 600 MG TAB PO SCH ×2 (14:16→20:59)
--- NOTE | 2021-12-30 14:37 | Emergency Department Note ---
Impression & Plan Acute upper GI hemorrhage, Acute blood loss anemia (ABLA) ED Provider Note CHIEF COMPLAINT: Weakness, low oxygen saturation, dizzy HISTORY OF PRESENT ILLNESS: This 89-year-old female patient presents to the emergency department with complaints of low oxygen saturations, increased work of breathing and dizziness from [facility] this morning. She states she felt wobbly this morning and was unable to get her blankets off of her. She just got back into bed. Her nurses reported a low blood pressure. Patient denies any other symptoms. She denies any urinary symptoms, recent falls, chest pain, shortness of breath or abdominal pain. She denies any recent vomiting or diarrhea. REVIEW OF SYSTEMS: History is limited secondary to the patient's memory of recent events. ALLERGIES: see below MEDICATIONS: see below PMH: see below SOCIAL HISTORY: see below DDx: Infection, dehydration, metabolic abnormality, hypo/hyperglycemia, electrolyte disturbance, anemia, hypoxia, cardiac sources, intracerebral event, toxicologic, neurologic, as well as other pathologies. PHYSICAL EXAM: Vital signs reviewed. General: Chronically ill-appearing 89-year-old female, in no significant dist ress. HEENT: No scleral icterus, PERRLA, neck supple. Atraumatic. Cardiovascular: Regular rate and rhythm, no extra sounds. Pulmonary: Clear to auscultation bilaterally, normal work of breathing. Abdomen: Soft, nontender, nondistended, positive bowel sounds. Musculoskeletal: Atraumatic, no peripheral edema. Rectal: Guaiac positive melanotic stool. Neurologic: Patient awake alert and oriented x 3 Skin: Warm, dry, no rash EMERGENCY DEPARTMENT COURSE/MDM: This patient was evaluated and appeared to be in no significant distress. IV access was obtained and laboratory work was drawn. The patient was placed on the laboratory monitor. Patient's laboratory work reveals a severe anemia with a hemoglobin of 5.2. She was typed and crossed for 2 units of PRBCs. Blood transfusion consent was obtained. Patient was placed on a Protonix bolus and drip. She is heme positive from the rectum. Transfusion order was given. Patient's case was discussed with the hospitalist service will evaluate the patient for admission and further management. Patient is COVID negative. MONITORING: An order for cardiac monitoring was placed and the patient is noted to be in a NSR at 77 beats per minute. RADIOLOGY: See below EKG:NSR w PACs at [address] abnormality. QTC is 446. No significant change from previous dated July 26, 2021 DISPOSITION: Admission I have personally spent 32 minutes of critical care time in the direct management of this patient. This was a life/limb threatening event. This 32 minutes is in excess of all separately billable procedures. Past Med/Surg History Medical History DANNY (acute kidney injury) Cellulitis of right lower extremity Chronic lumbar pain CKD (chronic kidney disease) stage 4, GFR 15-29 ml/min DVT (deep venous thrombosis) Dyslipidemia Edema Fracture of transverse process of vertebra Frozen shoulder Right History of Clostridioides difficile colitis Intertrochanteric fracture of right hip Lumbar postlaminectomy syndrome Multiple fractures of thoracic spine Open wound of right heel Osteoarthritis Osteoporosis Ovarian cystic mass Pulmonary nodule Right humeral fracture Rotator cuff arthropathy of left shoulder S/P right hip fracture Sacroiliitis Serum calcium elevated Stage III chronic kidney disease Surgical History History of appendectomy History of arthroscopic knee surgery Right History of cholecystectomy History of dilatation and curettage History of herniorrhaphy History of lumbar surgery L3 through L5 fusion History of tonsillectomy and adenoidectomy History of tubal ligation History of vascular surgery Family History Denies family history of Kidney disease Social History Smoking Status: Never smoker Hx Alcohol Use: No Hx Substance Use: No Preferred Language: Citizen Of [place] Communication Ability: Effective Scalloper Required: No Beliefs That Will Affect Care: None marital status: / Current Living Situation: Shelter How many Children do You have: 4 Feels Safe at Home: Yes Assistive Devices: Walker and Wheelchair Allergies Allergies Allergy/AdvReac Type Severity Reaction Status Date / Time codeine AdvReac Intermediate GI SYMPTOMS Verified 11/12/21 11:44 oxycodone AdvReac Intermediate GI SYMPTOMS Verified 11/12/21 11:44 Home Meds Home Medications Medication Instructions Recorded Confirmed aspirin 81 mg tablet,delayed 81 mg PO HS 02/23/18 11/12/21 release [id number] 2 tab PO DAILY 02/29/20 11/12/21 3,300 unit-5 mg-200mg-75 unit tablet ER (ICaps) albuterol sulfate 90 mcg/actuation 2 inh inhalation DIRECTED 07/26/21 11/12/21 breath activated powder inhaler (ProAir RespiClick) metoprolol succinate 25 mg 12.5 mg PO DAILY 07/26/21 11/12/21 tablet,extended release 24 hr mupirocin 2 % topical ointment 1 applic topical DIRECTED 07/26/21 10/15/21 tiotropium bromide 18 mcg capsule 1 cap inhalation DAILY 07/26/21 11/12/21 with inhalation device (Spiriva with HandiHaler) colchicine 0.6 mg tablet 0.6 mg PO DAILY 09/11/21 11/12/21 gabapentin 300 mg capsule 600 mg PO TID 09/11/21 11/12/21 levothyroxine 125 mcg tablet 125 mcg PO DAILY 09/11/21 11/12/21 quinine sulfate 200 mg capsule 200 mg PO DAILY 09/11/21 11/12/21 magnesium oxide 400 mg PO BID 10/04/21 11/12/21 acetaminophen 325 mg tablet 325 mg PO QID PRN 11/12/21 11/12/21 Previous Rx's Medication Instructions Recorded docusate sodium 100 mg capsule 100 mg PO BID #60 caps 03/06/20 meclizine 12.5 mg tablet 12.5 mg PO Q8 PRN dizziness #30 03/06/20 tabs polyethylene glycol 3350 17 gram 17 g PO DAILY PRN constipation #30 03/06/20 oral powder packet (Miralax) ea simvastatin 20 mg tablet 20 mg PO DAILY #30 tabs 08/12/21 furosemide 20 mg tablet (Lasix) 20 mg PO DAILY #30 tabs 09/17/21 Results & Data (ED) Vital Signs Vital Signs - 24 hr 12/30/21 06:53 12/30/21 07:01 12/30/21 08:02 Temperature 36.8 C Temperature Source Oral Pulse Rate 82 Pulse Rate [Apical] Respiratory Rate 18 26 H Respiratory Effort / Characteristics Non-Labored Labored Short of Breath Respiratory Depth Normal Respiratory Pattern Regular Blood Pressure 120/49 L Blood Pressure [Right Arm] Blood Pressure Mean 72 Blood Pressure Mean [Right Arm] Blood Pressure Position Lying Pulse Oximetry 84 L 96 95 Oxygen Delivery Method Room Air Nasal Cannula Room Air Oxygen Flow Rate 3 Sepsis Recent Fever Within 48 Hours Yes Sepsis New/Unexplained Change in Mental Status No Sepsis Action Taken by Nursing No Action Required 12/30/21 08:02 12/30/21 08:02 12/30/21 09:02 Temperature Temperature Source Pulse Rate 77 Pulse Rate [Apical] 77 81 Respiratory Rate 26 H 26 H 26 H Respiratory Effort / Characteristics Labored Short of Breath Short of Breath Respiratory Depth Respiratory Pattern Blood Pressure Blood Pressure [Right Arm] 113/38 L 118/51 L Blood Pressure Mean Blood Pressure Mean [Right Arm] 63 73 Blood Pressure Position Pulse Oximetry 96 95 97 Oxygen Delivery Method Nasal Cannula Nasal Cannula Nasal Cannula Oxygen Flow Rate 3 Sepsis Recent Fever Within 48 Hours Sepsis New/Unexplained Change in Mental Status Sepsis Action Taken by Nursing 12/30/21 09:02 12/30/21 10:15 Temperature Temperature Source Pulse Rate Pulse Rate [Apical] 72 Respiratory Rate 26 H 24 Respiratory Effort / Characteristics Non-Labored Respiratory Depth Respiratory Pattern Regular Blood Pressure Blood Pressure [Right Arm] 114/42 L Blood Pressure Mean Blood Pressure Mean [Right Arm] 66 Blood Pressure Position Pulse Oximetry 97 99 Oxygen Delivery Method Room Air Room Air Oxygen Flow Rate Sepsis Recent Fever Within 48 Hours Sepsis New/Unexplained Change in Mental Status Sepsis Action Taken by Shelter Medications Current Medication List: was personally reviewed by me Laboratory Data Attestation: I reviewed the patient's lab results. Result diagrams: 01/03/22 06:06 01/03/22 06:06 Lab Results 12/30/21 12/30/21 12/30/21 Range/Units 07:47 08:01 08:01 WBC 11.59 H (4.8-10.8) K/ul RBC 1.52 L (3.93-5.22) M/uL Hgb 5.3 L* (12.0-16.0) g/dl Hct 17.4 L* (34.1-44.9) % MCV 114.5 H (80.0-100.0) fL MCH 34.9 H (25.0-34.0) pg MCHC 30.5 L (32.0-36.0) g/dL RDW Std Deviation 77.4 H (36.4-46.3) fL RDW Coeff of Nuris 23.9 H (11.5-14.5) % Plt Count 353 (130-400) K/uL MPV 9.6 (9.4-12.3) fL Immature Gran % (Auto) 1.4 % Neut % (Auto) 67.7 % Lymph % (Auto) 20.8 % [place] % (Auto) 8.3 % Eos % (Auto) 1.6 % Baso % (Auto) 0.2 % Neut # (Auto) 7.85 H (1.4-6.5) K/uL Lymph # (Auto) 2.41 (1.2-3.4) K/uL [place] # (Auto) 0.96 H (0.24-0.82) K/uL Eos # (Auto) 0.19 (0-0.50) K/uL Baso # (Auto) 0.02 (0-0.2) K/uL Immature Gran # (Auto) 0.16 H (0.00-0.02) K/uL Absolute Nucleated RBC 0.32 H (0-0) K/uL Nucleated RBC % (auto) 2.8 % Polychromasia 2+ Anisocytosis Present Macrocytosis Present PT 12.3 H (9.0-12.0) Seconds INR 1.2 H (0.9-1.1) APTT 26.3 (21.0-31.0) Seconds PTT Ratio 1.0 Sodium (136-145) mmol/L Potassium (3.5-5.1) mmol/L Chloride (98-107) mmol/L Carbon Dioxide (21-32) mmol/L Anion Gap (3-11) BUN (6-23) mg/dl Creatinine (0.6-1.2) mg/dl Est Cr Clr Drug Dosing ml/min Est GFR ( Amer) ml/min Est GFR (Non-Af Amer) ml/min BUN/Creatinine Ratio (10-20) Glucose (70-99(Fasting)) mg/dl Lactate (0.4-2.0) mmol/L Calcium (8.5-10.1) mg/dl Magnesium (1.7-2.4) mg/dl Total Bilirubin (0.2-1.0) mg/dl AST (13-39) U/L ALT (7-52) U/L Alkaline Phosphatase (34-104) U/L Troponin I High Sens (0-14) pg/ml Total Protein (6.0-8.3) gm/dl Albumin (3.4-5.0) gm/dl Globulin (2.5-4.0) gm/dl Albumin/Globulin Ratio (0.9-2) Vitamin B12 (180-914) pg/ml Folate (>5.38) ng/ml Procalcitonin (0-0.5) ng/ml SARS-CoV-2 (PCR) NEGATIVE (Negative) Influenza Type A (PCR) Negative (Neg) Influenza Type B (PCR) Negative (Neg) RSV (RT-PCR) Negative (Neg) Blood Type Antibody Screen Crossmatch 12/30/21 12/30/21 12/30/21 Range/Units 08:01 08:01 08:01 WBC (4.8-10.8) K/ul RBC (3.93-5.22) M/uL Hgb (12.0-16.0) g/dl Hct (34.1-44.9) % MCV (80.0-100.0) fL MCH (25.0-34.0) pg MCHC (32.0-36.0) g/dL RDW Std Deviation (36.4-46.3) fL RDW Coeff of Nuris (11.5-14.5) % Plt Count (130-400) K/uL MPV (9.4-12.3) fL Immature Gran % (Auto) % Neut % (Auto) % Lymph % (Auto) % [place] % (Auto) % Eos % (Auto) % Baso % (Auto) % Neut # (Auto) (1.4-6.5) K/uL Lymph # (Auto) (1.2-3.4) K/uL [place] # (Auto) (0.24-0.82) K/uL Eos # (Auto) (0-0.50) K/uL Baso # (Auto) (0-0.2) K/uL Immature Gran # (Auto) (0.00-0.02) K/uL Absolute Nucleated RBC (0-0) K/uL Nucleated RBC % (auto) % Polychromasia Anisocytosis Macrocytosis PT (9.0-12.0) Seconds INR (0.9-1.1) APTT (21.0-31.0) Seconds PTT Ratio Sodium 141 (136-145) mmol/L Potassium 4.0 (3.5-5.1) mmol/L Chloride 104 (98-107) mmol/L Carbon Dioxide 31 (21-32) mmol/L Anion Gap 6 (3-11) BUN 84 H (6-23) mg/dl Creatinine 1.91 H (0.6-1.2) mg/dl Est Cr Clr Drug Dosing 18.4 ml/min Est GFR ( Amer) 26.5 ml/min Est GFR (Non-Af Amer) 22.8 ml/min BUN/Creatinine Ratio 44.0 H (10-20) Glucose 124 H (70-99(Fasting)) mg/dl Lactate 0.8 (0.4-2.0) mmol/L Calcium 9.0 (8.5-10.1) mg/dl Magnesium 3.2 H (1.7-2.4) mg/dl Total Bilirubin 0.4 (0.2-1.0) mg/dl AST 18 (13-39) U/L ALT 11 (7-52) U/L Alkaline Phosphatase 46 (34-104) U/L Troponin I High Sens 12.8 (0-14) pg/ml Total Protein 4.7 L (6.0-8.3) gm/dl Albumin 3.0 L (3.4-5.0) gm/dl Globulin 1.7 L (2.5-4.0) gm/dl Albumin/Globulin Ratio 1.8 (0.9-2) Vitamin B12 (180-914) pg/ml Folate (>5.38) ng/ml Procalcitonin 0.28 (0-0.5) ng/ml SARS-CoV-2 (PCR) (Negative) Influenza Type A (PCR) (Neg) Influenza Type B (PCR) (Neg) RSV (RT-PCR) (Neg) Blood Type Antibody Screen Crossmatch 12/30/21 12/30/21 Range/Units 08:01 08:35 WBC (4.8-10.8) K/ul RBC (3.93-5.22) M/uL Hgb (12.0-16.0) g/dl Hct (34.1-44.9) % MCV (80.0-100.0) fL MCH (25.0-34.0) pg MCHC (32.0-36.0) g/dL RDW Std Deviation (36.4-46.3) fL RDW Coeff of Nuris (11.5-14.5) % Plt Count (130-400) K/uL MPV (9.4-12.3) fL Immature Gran % (Auto) % Neut % (Auto) % Lymph % (Auto) % [place] % (Auto) % Eos % (Auto) % Baso % (Auto) % Neut # (Auto) (1.4-6.5) K/uL Lymph # (Auto) (1.2-3.4) K/uL [place] # (Auto) (0.24-0.82) K/uL Eos # (Auto) (0-0.50) K/uL Baso # (Auto) (0-0.2) K/uL Immature Gran # (Auto) (0.00-0.02) K/uL Absolute Nucleated RBC (0-0) K/uL Nucleated RBC % (auto) % Polychromasia Anisocytosis Macrocytosis PT (9.0-12.0) Seconds INR (0.9-1.1) APTT (21.0-31.0) Seconds PTT Ratio Sodium (136-145) mmol/L Potassium (3.5-5.1) mmol/L Chloride (98-107) mmol/L Carbon Dioxide (21-32) mmol/L Anion Gap (3-11) BUN (6-23) mg/dl Creatinine (0.6-1.2) mg/dl Est Cr Clr Drug Dosing ml/min Est GFR ( Amer) ml/min Est GFR (Non-Af Amer) ml/min BUN/Creatinine Ratio (10-20) Glucose (70-99(Fasting)) mg/dl Lactate (0.4-2.0) mmol/L Calcium (8.5-10.1) mg/dl Magnesium (1.7-2.4) mg/dl Total Bilirubin (0.2-1.0) mg/dl AST (13-39) U/L ALT (7-52) U/L Alkaline Phosphatase (34-104) U/L Troponin I High Sens (0-14) pg/ml Total Protein (6.0-8.3) gm/dl Albumin (3.4-5.0) gm/dl Globulin (2.5-4.0) gm/dl Albumin/Globulin Ratio (0.9-2) Vitamin B12 470 (180-914) pg/ml Folate > 22.30 (>5.38) ng/ml Procalcitonin (0-0.5) ng/ml SARS-CoV-2 (PCR) (Negative) Influenza Type A (PCR) (Neg) Influenza Type B (PCR) (Neg) RSV (RT-PCR) (Neg) Blood Type O Positive Antibody Screen NEGATIVE Crossmatch See Detail Administered Medications Acetaminophen (Acetaminophen 325 Mg Tab) 650 mg PO Q4H PRN PRN Reason: Mild Pain Stop: 01/29/22 11:35 Last Admin: 01/01/22 08:21 Dose: 650 mg Documented By: VICENTE Albuterol (Albuterol Hfa 8 Gm Inhaler) 2 puffs INH Q6H PRN PRN Reason: Shortness Of Breath Or Wheezing Stop: 01/29/22 11:55 Last Admin: 01/01/22 12:56 Dose: 2 puffs Documented By: Admin: 01/01/22 07:02 Dose: 2 puffs Documented By: Admin: 12/31/21 13:30 Dose: 2 puffs Documented By: [id number] Admin: 12/31/21 07:05 Dose: 2 puffs Documented By: [id number] Admin: 12/30/21 19:20 Dose: 2 puffs Documented By: SAMAN Colchicine (Colchicine 0.6 Mg Tab) 0.6 mg PO DAILY GEENA Stop: 01/30/22 08:59 Last Admin: 01/03/22 08:38 Dose: 0.6 mg Documented By: Admin: 01/02/22 09:08 Dose: 0.6 mg Documented By: Admin: 01/01/22 08:22 Dose: 0.6 mg Documented By: Admin: 12/31/21 08:22 Dose: 0.6 mg Documented By: VICENTE Gabapentin (Gabapentin 600 Mg Tab) 600 mg PO TID GEENA Stop: 01/29/22 13:59 Last Admin: 01/03/22 20:06 Dose: 600 mg Documented By: Admin: 01/03/22 14:18 Dose: 600 mg Documented By: Admin: 01/03/22 08:37 Dose: 600 mg Documented By: Admin: 01/02/22 21:06 Dose: 600 mg Documented By: Admin: 01/02/22 13:42 Dose: 600 mg Documented By: Admin: 01/02/22 08:33 Dose: 600 mg Documented By: Admin: 01/01/22 22:36 Dose: 600 mg Documented By: Admin: 01/01/22 15:24 Dose: 600 mg Documented By: Admin: 01/01/22 08:22 Dose: 600 mg Documented By: Admin: 12/31/21 21:21 Dose: 600 mg Documented By: Admin: 12/31/21 16:18 Dose: 600 mg Documented By: Admin: 12/31/21 08:22 Dose: 600 mg Documented By: Admin: 12/30/21 20:59 Dose: 600 mg Documented By: Admin: 12/30/21 14:16 Dose: 600 mg Documented By: KATE Heparin Sodium/Dextrose (Heparin Sodium/Dextrose) 25,000 units in 500 mls @ 14 mls/hr IV .Q24H GEENA; Protocol Stop: 01/04/22 09:00 Last Titration: 01/03/22 01:16 Dose: 700 units/hr, 14 mls/hr Documented By: DYLAN Co-signed By: BYRON Admin: 01/02/22 17:45 Dose: 650 units/hr, 13 mls/hr Documented By: MACARENA Co-signed By: TMG Levothyroxine Sodium (Levothyroxine Sodium 125 Mcg Tablet) 125 mcg PO DAILYBB [facility] Stop: 01/30/22 06:29 Last Admin: 01/03/22 06:46 Dose: 125 mcg Documented By: Admin: 01/02/22 05:54 Dose: 125 mcg Documented By: Admin: 01/01/22 06:21 Dose: 125 mcg Documented By: Admin: 12/31/21 05:54 Dose: 125 mcg Documented By: ANALILIA Magnesium Oxide (Magnesium Oxide 400 Mg Tab) 400 mg PO QAM [facility] Stop: 01/31/22 10:44 Last Admin: 01/03/22 08:37 Dose: 400 mg Documented By: Admin: 08/25/22 09:08 Dose: 400 mg Documented By: Admin: 01/01/22 11:36 Dose: 400 mg Documented By: VICENTE Pantoprazole Sodium (Pantoprazole 40 Mg Tab) 40 mg PO BID [facility] Stop: 01/31/22 10:29 Last Admin: 01/03/22 20:06 Dose: 40 mg Documented By: Admin: 01/03/22 08:38 Dose: 40 mg Documented By: Admin: 01/02/22 21:06 Dose: 40 mg Documented By: Admin: 01/02/22 08:33 Dose: 40 mg Documented By: Admin: 01/01/22 22:36 Dose: 40 mg Documented By: Admin: 01/01/22 11:36 Dose: 40 mg Documented By: VICENTE Quinine Sulfate (Quinine Sulfate 324 Mg Cap) 324 mg PO QAM [facility] Stop: 01/31/22 10:44 Last Admin: 01/03/22 08:39 Dose: 324 mg Documented By: Admin: 01/02/22 09:08 Dose: 324 mg Documented By: Admin: 01/01/22 15:24 Dose: 324 mg Documented By: VICENTE Simvastatin (Simvastatin 20 Mg Tab) 20 mg PO DAILY GEENA Stop: 01/30/22 08:59 Last Admin: 01/03/22 08:37 Dose: 20 mg Documented By: Admin: 01/02/22 09:08 Dose: 20 mg Documented By: Admin: 01/01/22 08:22 Dose: 20 mg Documented By: Admin: 12/31/21 08:22 Dose: 20 mg Documented By: VICENTE Umeclidinium [place] (Umeclidinium [place] 62.5mcg/Blister 7 Puffs/Inhaler) 1 puffs INH DAILY [facility]; Protocol Stop: 01/30/22 08:59 Last Admin: 01/03/22 08:39 Dose: 1 puffs Documented By: Admin: 01/02/22 08:33 Dose: 1 puffs Documented By: Admin: 01/01/22 08:22 Dose: 1 puffs Documented By: Admin: 12/31/21 08:23 Dose: 1 puffs Documented By: VICENTE Discontinued Medications Albuterol (Albuterol 0.083% Nebu Soln 3 Ml Vial) 2.5 mg INH Q6R [facility] Last Admin: 01/01/22 12:59 Dose: Not Given Documented By: Admin: 01/01/22 07:04 Dose: Not Given Documented By: Admin: 01/01/22 00:17 Dose: Not Given Documented By: Admin: 12/31/21 19:46 Dose: Not Given Documented By: Admin: 12/31/21 14:38 Dose: Not Given Documented By: [id number] Admin: 12/31/21 07:06 Dose: Not Given Documented By: [id number] Admin: 12/31/21 00:19 Dose: Not Given Documented By: Admin: 12/30/21 19:21 Dose: Not Given Documented By: Admin: 12/30/21 12:37 Dose: 2.5 mg Documented By: SANAM Heparin Sodium/Dextrose (Heparin Iv Adult Wt-Based Low-Dose *No* Bolus Protocol) 1 each IV Q15M GEENA; Protocol Stop: 02/01/22 16:53 Last Admin: 01/02/22 17:56 Dose: Not Given Documented By: Admin: 01/02/22 17:56 Dose: Not Given Documented By: Admin: 01/02/22 17:55 Dose: Not Given Documented By: Admin: 01/02/22 17:47 Dose: Not Given Documented By: MACARENA Pantoprazole Sodium 80 mg/ (Dextrose) 120 mls @ 480 mls/hr IV NOW ONE Stop: 12/30/21 09:59 Last Infusion: 12/30/21 10:28 Dose: 0 mls/hr Documented By: Admin: 12/30/21 10:09 Dose: 480 mls/hr Documented By: KATE Pantoprazole Sodium 40 mg/ (Dextrose) 100 mls @ 20 mls/hr IV Q5H GEENA Stop: 01/29/22 09:44 Last Infusion: 01/01/22 10:55 Dose: 0 mg/hr, 0 mls/hr Documented By: Infusion: 01/01/22 10:54 Dose: 0 mg/hr, 0 mls/hr Documented By: Admin: 01/01/22 09:55 Dose: 8 mg/hr, 20 mls/hr Documented By: Infusion: 01/01/22 09:44 Dose: 8 mg/hr, 20 mls/hr Documented By: Admin: 01/01/22 04:44 Dose: 8 mg/hr, 20 mls/hr Documented By: Infusion: 01/01/22 04:42 Dose: 8 mg/hr, 20 mls/hr Documented By: Admin: 12/31/21 23:42 Dose: 8 mg/hr, 20 mls/hr Documented By: Infusion: 12/31/21 23:03 Dose: 8 mg/hr, 20 mls/hr Documented By: Admin: 12/31/21 18:03 Dose: 8 mg/hr, 20 mls/hr Documented By: Infusion: 12/31/21 17:41 Dose: 8 mg/hr, 20 mls/hr Documented By: Admin: 12/31/21 12:41 Dose: 8 mg/hr, 20 mls/hr Documented By: Infusion: 12/31/21 12:25 Dose: 8 mg/hr, 20 mls/hr Documented By: Admin: 12/31/21 07:25 Dose: 8 mg/hr, 20 mls/hr Documented By: Infusion: 12/31/21 07:10 Dose: 8 mg/hr, 20 mls/hr Documented By: Admin: 12/31/21 02:10 Dose: 8 mg/hr, 20 mls/hr Documented By: Infusion: 12/31/21 01:57 Dose: 8 mg/hr, 20 mls/hr Documented By: Admin: 12/30/21 20:57 Dose: 8 mg/hr, 20 mls/hr Documented By: Infusion: 12/30/21 20:57 Dose: 8 mg/hr, 20 mls/hr Documented By: Admin: 12/30/21 16:41 Dose: 8 mg/hr, 20 mls/hr Documented By: Infusion: 12/30/21 10:27 Dose: 8 mg/hr, 20 mls/hr Documented By: Admin: 12/30/21 10:20 Dose: 8 mg/hr, 20 mls/hr Documented By: KATE Lactated Ringer's (Lr) 1,000 mls @ 100 mls/hr IV .Q10H GEENA Stop: 01/31/22 18:29 Last Infusion: 01/02/22 17:19 Dose: 0 mls/hr Documented By: Admin: 01/02/22 13:42 Dose: 100 mls/hr Documented By: Infusion: 01/02/22 13:42 Dose: 100 mls/hr Documented By: Admin: 01/02/22 04:42 Dose: 100 mls/hr Documented By: Infusion: 01/02/22 04:42 Dose: 0 mls/hr Documented By: Infusion: 01/01/22 22:14 Dose: 0 mls/hr Documented By: Admin: 01/01/22 18:41 Dose: 100 mls/hr Documented By: VICENTE Lorazepam 0.5 mg/ Syringe 0.5 mls @ 2 mls/min IV ONE ONE Stop: 01/01/22 23:16 Last Admin: 01/01/22 23:20 Dose: 2 mls/min Documented By: DYLAN Miscellaneous (Quinine: Order Awaiting Action) 1 each N/A QS GEENA Stop: 01/29/22 15:59 Last Admin: 01/03/22 08:40 Dose: Not Given Documented By: Admin: 01/02/22 23:56 Dose: Not Given Documented By: Admin: 01/02/22 15:52 Dose: Not Given Documented By: Admin: 01/02/22 07:21 Dose: Not Given Documented By: Admin: 01/01/22 23:42 Dose: Not Given Documented By: Admin: 01/01/22 16:52 Dose: Not Given Documented By: Admin: 01/01/22 08:20 Dose: Not Given Documented By: Admin: 01/01/22 01:11 Dose: Not Given Documented By: Admin: 12/31/21 17:20 Dose: Not Given Documented By: Admin: 12/31/21 08:23 Dose: Not Given Documented By: Admin: 12/31/21 08:23 Dose: Not Given Documented By: Admin: 12/31/21 08:22 Dose: Not Given Documented By: VICENTE Imaging Data Radiologist's Impression: Chest X-Ray 12/30/21 07:27 XR chest 1V portable CLINICAL HISTORY: SEPSIS TECHNIQUE: Single frontal radiograph of the chest was obtained. Comparison: Comparison is made to chest radiograph 08/06/2021 FINDINGS: No lines and tubes are seen. Cardiomegaly is noted. Calcified aortic knob is seen. Linear densities are in the bilateral lower lungs. No evidence of pleural effusion or pneumothorax. IMPRESSION: Linear densities in the bilateral lower lungs likely represent atelectasis. Superimposed aspiration/pneumonia cannot be entirely excluded. ACT 112: Negative or not required by law. Electronically signed by: Mahesh Davis M.D. 12/30/2021 7:48 AM Blood Pressure Blood Pressure Findings: Normal blood pressure Blood Pressure Disposition: did not require urgent referral Discharge Plan Visit Data Chief Complaint: Illness Stated Complaint: WEAKNESS ED Provider: Marie Dumas Discharge Problem: Acute upper GI hemorrhage, Acute blood loss anemia (ABLA) Patient Disposition: Admitted As Inpatient Discharge Instructions Interventions: ED Discharge Assessment Last Done: 12/30/21 20:00
[2021-12-30] MEDS: ALBUTEROL HFA 8 GM INHALER INH PRN (19:20)
[2021-12-30 20:03] LABS: Hematocrit (blood only) 28.4 % (34.1-44.9); Mean Corpuscular Hemoglobin 33.1 pg (25.0-34.0); Mean Corpuscular Hgb Conc 31.7 g/dL (32.0-36.0); Mean Corpuscular Volume 104.4 fL (80.0-100.0); Mean Platelet Volume 9.5 fL (9.4-12.3); Nucleated RBC # (auto) 0.19 K/uL (0-0); Nucleated RBC % (auto) 2.2 %; Platelet Count 275 K/uL (130-400); RDW Coefficient of Variation 19.4 % (11.5-14.5); RDW Standard Deviation 53.6 fL (36.4-46.3); Red Blood Count 2.72 M/uL (3.93-5.22); White Blood Count 8.63 K/ul (4.8-10.8)
[2021-12-31] MEDS: ALBUTEROL 0.083% NEBU SOLN 3 ML VIAL INH SCH ×5 (00:19→19:46)
[2021-12-31 01:07] LABS: Hematocrit (blood only) 27.7 % (34.1-44.9); Hemoglobin 8.9 g/dl (12.0-16.0); Mean Corpuscular Hemoglobin 33.5 pg (25.0-34.0); Mean Corpuscular Hgb Conc 32.1 g/dL (32.0-36.0); Mean Corpuscular Volume 104.1 fL (80.0-100.0); Mean Platelet Volume 9.2 fL (9.4-12.3); Nucleated RBC # (auto) 0.09 K/uL (0-0); Nucleated RBC % (auto) 1.1 %; Platelet Count 262 K/uL (130-400); RDW Standard Deviation 54.1 fL (36.4-46.3); Red Blood Count 2.66 M/uL (3.93-5.22); White Blood Count 8.37 K/ul (4.8-10.8)
[2021-12-31] MEDS: PANTOprazole 40 MG in DEXTROSE 5% 100 ML IV SCH ×5 (02:10→23:42)
[2021-12-31] MEDS: LEVOTHYROXINE SODIUM 125 MCG TABLET PO SCH (05:54)
[2021-12-31 06:01] LABS: Hematocrit (blood only) 29.6 % (34.1-44.9); Hemoglobin 9.6 g/dl (12.0-16.0); Mean Corpuscular Hemoglobin 33.4 pg (25.0-34.0); Mean Corpuscular Hgb Conc 32.4 g/dL (32.0-36.0); Mean Corpuscular Volume 103.1 fL (80.0-100.0); Mean Platelet Volume 9.1 fL (9.4-12.3); Nucleated RBC # (auto) 0.06 K/uL (0-0); Nucleated RBC % (auto) 0.8 %; Platelet Count 269 K/uL (130-400); RDW Coefficient of Variation 20.7 % (11.5-14.5); RDW Standard Deviation 55.6 fL (36.4-46.3); Red Blood Count 2.87 M/uL (3.93-5.22); White Blood Count 7.83 K/ul (4.8-10.8)
[2021-12-31 06:43] LABS: BUN Creatinine Ratio 36.5 (10-20); Creatinine Clr Calc Pharmacy 22.1 ml/min; Est GFR (Non-African American) 28.5 ml/min; Magnesium 2.7 mg/dl (1.7-2.4); Potassium 3.9 mmol/L (3.5-5.1)
[2021-12-31] MEDS: ALBUTEROL HFA 8 GM INHALER INH PRN ×2 (07:05→13:30)
[2021-12-31] MEDS: COLCHICINE 0.6 MG TAB PO SCH (08:22)
[2021-12-31] MEDS: GABAPENTIN 600 MG TAB PO SCH ×3 (08:22→21:21)
[2021-12-31] MEDS: SIMVASTATIN 20 MG TAB PO SCH (08:22)
[2021-12-31] MEDS: UMECLIDINIUM BROMIDE 62.5MCG/BLISTER 7 PUFFS/INHALER INH SCH (08:23)
--- NOTE | 2021-12-31 09:01 | Communication Note ---
Date of Service: December 31, 2021 Patient's hgb has improved from 5.3 to 9.6 after 2 units of PRBC. She has not noticed any blood in her stools. no bowel movements since admission per patient. gi ros unremarkable. In light of improved hgb and no signs of gi bleeding, she wishes to defer any endoscopic evaluation at this time.
--- NOTE | 2021-12-31 12:01 | Hospitalist Progress Note ---
Date of Service December 31, 2021 Assessment & Plan (1) Anemia: Plan: Hgb was 5.7 on admission; noted to be 11.4 in September. No signs of active bleeding on exam, ED reported + guaiac test on JUSTIN. Patient has a Hx of treated DVT with Xarelto, appears to have completed treatment. - S/p 2 units PRBCs on 12/30. Hgb up to 9.6 today. - GI consulted; patient prefers to defer EGD due to stability and not wanting extra procedures. - Will continue PPI ggt x 48 hours, then switch to oral BID if continues to be stable. (2) Acute respiratory failure with hypoxia: Plan: Patient was noted to be hypoxic on RA at [facility] and in the ED, stable on 3L NC. Patient denies O2 at baseline. - RVP and procal were negative, possible LLL atelectasis on CXR - Home breathing treatments ordered, added q6h albuterol and incentive spirometry (3) COPD (chronic obstructive pulmonary disease): Plan: -See acute hypoxic resp failure (4) HTN (hypertension): Plan: BP presently is 115/60. - Hold home metoprolol for now as she was noted to be hypotensive this AM and possible GI bleed (5) Peripheral vascular disease: Plan: - Hold home aspirin for now with possible GI bleed (6) Right foot drop: Plan: - At baseline (7) Ambulatory dysfunction: Plan: At baseline and currently residing at [facility]. - No inpatient needs (8) Hypothyroid: Plan: TSH was 3.3 in 07/2021. - Continue home levothyroxine - Recheck TSH (9) Open wound of right heel: Plan: Currently clean and wrapped - Continue wound care (10) Dyslipidemia: Plan: - Continue home simvastatin (11) Greater trochanteric bursitis: Plan: - Continue PT/OT (12) DVT prophylaxis: Plan: Hx of DVT noted in problem list, but I do not see any mention in prior notes. - SCDs -> Will defer heparin for now given concern for GI bleed Admission and Anticipated Discharge Date Admission Date: December 30, 2021 Subjective Still tired today. No major difference compared to arrival. Reports no fevers/chills, chest pain, shortness of breath, abdominal pain, nausea, or vomiting. Physical Exam Constitutional: WD/WN, vitals as above Eyes: EOM intact bilaterally; no conjunctival abnormality ENMT: external ear and nose normal, oropharynx normal Neck: trachea midline, no thyromegaly normal visual inspection Respiratory: normal respiratory effort, lungs clear to auscultation no respiratory distress Cardiovascular: RRR, no murmur, no edema Gastrointestinal (Abdomen): Inspection/Auscultation: abdomen normal to inspection; abdomen not distended Musculoskeletal: no cyanosis or clubbing, extremities motor strength 5/5 Skin: no rashes, warm and dry Neurologic: moves all extremities and awake Psychiatric: Orientation: alert, oriented to person and cooperative Results & Data Results & Data ([facility]) Vital Signs (Past 12 Hours) Vital Signs Temp Pulse Pulse Resp BP Pulse Ox O2 Del Method 12/31/21 11:31 Room Air 12/31/21 10:59 36.3 C L 76 20 113/63 94 Nasal Cannula 12/31/21 08:00 12/31/21 08:00 63 12/31/21 07:15 36.3 C L 56 L 18 127/75 94 Nasal Cannula 12/31/21 07:06 61 14 89 L Nasal Cannula 12/31/21 03:31 36.6 C 66 18 133/78 96 Nasal Cannula 12/31/21 00:07 36.7 C 60 16 119/62 96 Nasal Cannula O2 Del Method O2 Flow Rate 12/31/21 11:31 2 12/31/21 10:59 2 12/31/21 08:00 Room Air 12/31/21 08:00 12/31/21 07:15 2 12/31/21 07:06 2.5 12/31/21 03:31 2 12/31/21 00:07 2 PG Care Time/CCT Total # of Minutes Spent Total Time Spent with Patient: Total time spent is greater than 50% in coordination of care (as documented) at patient's floor/unit and/or counseling patient: Coding Level of Care Code 46139 Subseq Hosp Care Lvl 3 Diagnoses Anemia D64.9 Acute respiratory failure with hypoxia J96.01 COPD (chronic obstructive pulmonary disease) J44.9 HTN (hypertension) I10 Peripheral vascular disease I73.9 Right foot drop M21.371 Ambulatory dysfunction R26.2 Hypothyroid E03.9 Open wound of right heel S91.301A Encounter type: initial encounter Dyslipidemia E78.5 Greater trochanteric bursitis M70.60 DVT prophylaxis Z29.9 (1) Open wound of right heel Encounter type: initial encounter Qualified Code(s): S91.301A - Unspecified open wound, right foot, initial encounter
[2022-01-01] MEDS: ALBUTEROL 0.083% NEBU SOLN 3 ML VIAL INH SCH ×3 (00:17→12:59)
[2022-01-01] MEDS: PANTOprazole 40 MG in DEXTROSE 5% 100 ML IV SCH ×2 (04:44→09:55)
[2022-01-01 06:10] LABS: Hematocrit (blood only) 27.9 % (34.1-44.9); Hemoglobin 9.1 g/dl (12.0-16.0); Mean Corpuscular Hemoglobin 33.6 pg (25.0-34.0); Mean Corpuscular Hgb Conc 32.6 g/dL (32.0-36.0); Mean Platelet Volume 9.2 fL (9.4-12.3); Platelet Count 251 K/uL (130-400); RDW Coefficient of Variation 20.5 % (11.5-14.5); RDW Standard Deviation 59.9 fL (36.4-46.3); Red Blood Count 2.71 M/uL (3.93-5.22); White Blood Count 7.72 K/ul (4.8-10.8)
[2022-01-01] MEDS: LEVOTHYROXINE SODIUM 125 MCG TABLET PO SCH (06:21)
[2022-01-01 06:35] LABS: BUN Creatinine Ratio 24.3 (10-20); Calcium 8.8 mg/dl (8.5-10.1); Creatinine Clr Calc Pharmacy 17.9 ml/min; Est GFR (African American) 26.8 ml/min; Est GFR (Non-African American) 23.1 ml/min; Magnesium 2.2 mg/dl (1.7-2.4); Potassium 3.9 mmol/L (3.5-5.1)
[2022-01-01] MEDS: ALBUTEROL HFA 8 GM INHALER INH PRN ×2 (07:02→12:56)
[2022-01-01] MEDS: UMECLIDINIUM BROMIDE 62.5MCG/BLISTER 7 PUFFS/INHALER INH SCH (08:22)
[2022-01-01] MEDS: SIMVASTATIN 20 MG TAB PO SCH (08:22)
[2022-01-01] MEDS: COLCHICINE 0.6 MG TAB PO SCH (08:22)
[2022-01-01] MEDS: GABAPENTIN 600 MG TAB PO SCH ×3 (08:22→22:36)
[2022-01-01] MEDS: PANTOprazole 40 MG TAB PO SCH ×2 (11:36→22:36)
[2022-01-01] MEDS: MAGNESIUM OXIDE 400 MG TAB PO SCH (11:36)
--- NOTE | 2022-01-01 11:40 | XRay Report ---
XR chest 2V PA/lateral CLINICAL HISTORY: Hypoxemia. COMPARISON STUDY: Chest CT July 27, 2021. Chest radiograph December 30, 2021. FINDINGS: Old proximal humeral and right-sided rib fractures are noted. Postoperative findings within the spine are partially imaged. There are trace bilateral pleural fusions. No pneumothorax is noted. There is cardiomegaly. There is mild pulmonary edema. Linear left basilar opacity favors atelectasis . No consolidation to suggest pneumonia. Several old thoracic spine compression deformities are incid entally noted. IMPRESSION: Cardiomegaly. Mild interstitial pulmonary edema with trace bilateral pleural effusions. ACT 112: Negative or not required by law. Electronically signed by: Neal Haynes M.D. 01/01/2022 11:38 AM
--- NOTE | 2022-01-01 13:14 | Electrocardiogram Report ---
Test Reason : Blood Pressure : / mmHG Vent. Rate : 095 BPM Atrial Rate : 095 BPM P-R Int : 180 ms QRS Dur : 084 ms QT Int : 370 ms P-R-T Axes : 049 -06 094 degrees QTc Int : 464 ms Sinus rhythm with Premature atrial complexes Diffuse Minor Nonspecific ST abnormality Abnormal ECG When compared with ECG of 30-DEC-2021 06:58, No significant change Confirmed by Last Valencia ([id number]) on 01/01/2022 1:13:56 PM Referred By: REFERRED SELF Confirmed By:Last Valencia
--- NOTE | 2022-01-01 13:24 | Hospitalist Progress Note ---
Date of Service January 01, 2022 Assessment & Plan (1) Anemia: Plan: Hgb was 5.7 on admission; noted to be 11.4 in September. No signs of active bleeding on exam, ED reported + guaiac test on JUSTIN. Patient has a Hx of treated DVT with Xarelto, appears to have completed treatment. - S/p 2 units PRBCs on 12/30. Hgb up to 9.6 on 12/31; now down to 9.1. - GI consulted; patient prefers to defer EGD due to stability and not wanting extra procedures. - Continued PPI ggt x 48 hours, then switched to oral BID on 01/01. - Will trend for 1 more day. No bloody or melenic stools since admission. (2) CKD (chronic kidney disease) stage 4, GFR 15-29 ml/min: Plan: Baseline Cr has ranged from 1.4 - 1.9 over last few months. CrCl ~20 mL/min. Saw Dr. Greene on 11/12 with note indicating hx of TREVIN and hypercalcemia. - Presently on upper end of her range at 1.9. Does not appear overtly volume overloaded on exam, but not really hypovolemic either. - Closely monitor. (3) Acute respiratory failure with hypoxia: Plan: Patient was noted to be hypoxic on RA at [facility] and in the ED, stable on 2L NC. Patient denies O2 at baseline. - RVP and procal were negative, possible LLL atelectasis on CXR - Home breathing treatments ordered, added q6h albuterol and incentive spirometry. - CXR on 01/01 showed trace pulmonary edema. BNP ordered. No hx of CHF, so this would be new diagnosis. (4) COPD (chronic obstructive pulmonary disease): Plan: - See acute hypoxic resp failure (5) HTN (hypertension): Plan: BP presently is 130/60. - Hold home metoprolol for now as she was noted to be hypotensive and possible GI bleed (6) Peripheral vascular disease: Plan: - Hold home aspirin for now with possible GI bleed (7) Right foot drop: Plan: - At baseline (8) Ambulatory dysfunction: Plan: At baseline and currently residing at [facility]. - No inpatient needs (9) Hypothyroid: Plan: TSH was 3.3 in 07/2021. - Continue home levothyroxine - Recheck TSH (10) Open wound of right heel: Plan: Currently clean and wrapped - Continue wound care (11) Dyslipidemia: Plan: - Continue home simvastatin (12) Greater trochanteric bursitis: Plan: - Continue PT/OT (13) DVT prophylaxis: Plan: Hx of DVT noted in problem list, but I do not see any mention in prior notes. - SCDs -> Will defer heparin for now given concern for GI bleed Admission and Anticipated Discharge Date Admission Date: December 30, 2021 Subjective Not feeling as well today. Woke up with a headache and some right-sided jaw pain that resolved relatively quickly. But this AM, having some cramping in her legs which is causing some pain. Physical Exam Constitutional: WD/WN, vitals as above + acute distress Eyes: EOM intact bilaterally; no conjunctival abnormality ENMT: external ear and nose normal, oropharynx normal Neck: trachea midline, no thyromegaly normal visual inspection Respiratory: normal respiratory effort, lungs clear to auscultation no respiratory distress Cardiovascular: RRR, no murmur, no edema Gastrointestinal (Abdomen): Inspection/Auscultation: abdomen normal to inspec tion; abdomen not distended Musculoskeletal: no cyanosis or clubbing, extremities motor strength 5/5 Skin: no rashes, warm and dry Neurologic: moves all extremities and awake Psychiatric: Orientation: alert, oriented to person and cooperative Results & Data Results & Data ([facility]) Vital Signs (Past 12 Hours) Vital Signs Temp Pulse Pulse Resp BP Pulse Ox Pulse Ox 01/01/22 12:58 92 H 18 95 01/01/22 11:45 36.8 C 82 18 132/66 98 01/01/22 11:01 01/01/22 08:00 92 01/01/22 08:00 84 01/01/22 07:54 36.5 C 85 18 133/61 98 01/01/22 07:04 71 18 98 01/01/22 04:03 36.4 C L 84 16 141/71 H 93 O2 Del Method O2 Del Method O2 Flow Rate O2 Flow Rate 01/01/22 12:58 Nasal Cannula 2 01/01/22 11:45 Room Air 01/01/22 11:01 Nasal Cannula 2 01/01/22 08:00 Oxymask 2 01/01/22 08:00 01/01/22 07:54 Nasal Cannula 2.5 01/01/22 07:04 Nasal Cannula 3 01/01/22 04:03 Nasal Cannula 2.5 PG Care Time/CCT Total # of Minutes Spent Total Time Spent with Patient: Total time spent is greater than 50% in coordination of care (as documented) at patient's floor/unit and/or counseling patient: Coding Level of Care Code 23993 Subseq Hosp Care Lvl 3 Diagnoses Anemia D64.9 CKD (chronic kidney disease) stage 4, GFR 15-29 ml/min N18.4 Acute respiratory failure with hypoxia J96.01 COPD (chronic obstructive pulmonary disease) J44.9 HTN (hypertension) I10 Peripheral vascular disease I73.9 Right foot drop M21.371 Ambulatory dysfunction R26.2 Hypothyroid E03.9 Open wound of right heel S91.301A Encounter type: initial encounter Dyslipidemia E78.5 Greater trochanteric bursitis M70.60 DVT prophylaxis Z29.9 (1) Open wound of right heel Encounter type: initial encounter Qualified Code(s): S91.301A - Unspecified open wound, right foot, initial encounter
[2022-01-01 18:12] LABS: BUN Creatinine Ratio 21.5 (10-20); Calcium 9.2 mg/dl (8.5-10.1); Creatinine Clr Calc Pharmacy 16.9 ml/min; Est GFR (Non-African American) 21.6 ml/min; Potassium 4.1 mmol/L (3.5-5.1)
[2022-01-01] MEDS: LACTATED RINGER'S 1,000 ML IV SCH (18:41)
[2022-01-01] MEDS ORDERED: LORazepam 0.5 MG in SYRINGE 0.25 ML IV ONE (23:15)
[2022-01-02] MEDS: LACTATED RINGER'S 1,000 ML IV SCH ×2 (04:42→13:42)
[2022-01-02] MEDS: LEVOTHYROXINE SODIUM 125 MCG TABLET PO SCH (05:54)
[2022-01-02 06:22] LABS: Hematocrit (blood only) 26.3 % (34.1-44.9); Hemoglobin 8.5 g/dl (12.0-16.0); Mean Corpuscular Hemoglobin 33.1 pg (25.0-34.0); Mean Corpuscular Hgb Conc 32.3 g/dL (32.0-36.0); Mean Corpuscular Volume 102.3 fL (80.0-100.0); Mean Platelet Volume 9.3 fL (9.4-12.3); Platelet Count 237 K/uL (130-400); RDW Coefficient of Variation 19.1 % (11.5-14.5); RDW Standard Deviation 70.9 fL (36.4-46.3); Red Blood Count 2.57 M/uL (3.93-5.22); White Blood Count 6.31 K/ul (4.8-10.8)
[2022-01-02 06:25] LABS: Base Excess VBG 5.2 mEq/L; HCO3 VBG 30 mmol/L; Oxygen Saturation VBG 94.4 %; PCO2 VBG 43 mmHg (38-50); PO2 VBG 65 mmHg; pH VBG 7.45 (7.36-7.41)
--- NOTE | 2022-01-02 06:34 | XRay Report ---
XR chest 1V portable CLINICAL HISTORY: Shortness of breath. COMPARISON STUDY: Chest CT July 27, 2021. Chest radiograph performed earlier today. FINDINGS: Old proximal right humeral fracture is incidentally noted. There is no pneumothorax. There are trace bilateral pleural effusions. Cardiomegaly is unchanged. There is mild left basilar opacity. No evidence for overt pulmonary edema. Pulmonary vascular congestion has improved. IMPRESSION: 1. Trace bilateral pleural effusions. 2. Mild left basilar opacity which favors atelectasis. 3. Stable cardiomegaly. ACT 112: Negative or not required by law. Electronically signed by: Neal Haynes M.D. 01/02/2022 6:33 AM
[2022-01-02 06:47] LABS: BUN Creatinine Ratio 22.8 (10-20); Calcium 9.2 mg/dl (8.5-10.1); Creatinine Clr Calc Pharmacy 20.7 ml/min; Est GFR (African American) 32.3 ml/min; Est GFR (Non-African American) 27.9 ml/min; Potassium 3.8 mmol/L (3.5-5.1)
[2022-01-02 06:59] LABS: Thyroid Stimulating Hormone 26.478 uIu/ml (0.300-4.500)
[2022-01-02 07:31] LABS: T4 Free Thyroxine 0.75 ng/dl (0.61-1.60)
[2022-01-02] MEDS: GABAPENTIN 600 MG TAB PO SCH ×3 (08:33→21:06)
[2022-01-02] MEDS: PANTOprazole 40 MG TAB PO SCH ×2 (08:33→21:06)
[2022-01-02] MEDS: UMECLIDINIUM BROMIDE 62.5MCG/BLISTER 7 PUFFS/INHALER INH SCH (08:33)
[2022-01-02] MEDS: COLCHICINE 0.6 MG TAB PO SCH (09:08)
[2022-01-02] MEDS: MAGNESIUM OXIDE 400 MG TAB PO SCH (09:08)
[2022-01-02] MEDS: SIMVASTATIN 20 MG TAB PO SCH (09:08)
--- NOTE | 2022-01-02 09:12 | Communication Note ---
Date of Service: January 02, 2022 Hgb slightly lower from 9.1 to 8.5. No bleeding noted. no melena. discussed with nursing, no signs of gi bleeding at this time. patient not interested in any endoscopic evaluation given age/comorbidities.
--- NOTE | 2022-01-02 10:21 | XCELERA ---
[id number]
--- NOTE | 2022-01-02 15:15 | Ultrasound Report ---
BILATERAL LOWER EXTREMITY VENOUS DOPPLER HISTORY: Reports recent diagnosis of DVT, but unsure of leg COMPARISON STUDY: None. FINDINGS: There is normal compressibility, flow, and augmentation within the left lower extremity damián p venous system. Nonocclusive thrombus within the right popliteal vein which likely extends into the right calf veins. The right common femoral and superficial femoral veins are patent. IMPRESSION: 1. No DVT within the left lower extremity. 2. Nonocclusive thrombus within the right popliteal vein which likely extends into the right calf vei ns. ACT 112: Negative or not required by law. Electronically signed by: Brian Rahman M.D. 01/02/2022 3:13 PM
--- NOTE | 2022-01-02 17:00 | Hospitalist Progress Note ---
Date of Service January 02, 2022 Assessment & Plan (1) DVT (deep venous thrombosis): Plan: RLE DVT noted on Doppler on 01/02. Patient reports she was diagnosed with DVT 2- 3 weeks ago at [facility], but this was missed during admission and up to this point. Confirmed with [facility] team that this was in fact true. - Started heparin low-dose on 01/02. - Discussed with GI on 01/02 given concern for GI bleed. [place] anticoagulation was acceptable and to continue PPI PO BID. No plan for EGD unless overt sign/symptom of GI bleeding. - Defer CTA chest at this time as we plan for anticoagulation regardless. Per report, DVT was more extensive 2 weeks ago, so I guess I suspect some of it is in fact now a PE. (2) Anemia: Plan: Hgb was 5.7 on admission; noted to be 11.4 in September. No signs of active bleeding on exam, ED reported + guaiac test on JUSTIN. - S/p 2 units PRBCs on 12/30. Hgb up to 9.6 on 12/31; now down to 8.5. - GI consulted; patient prefers to defer EGD due to stability and not wanting extra procedures. - Continued PPI ggt x 48 hours, then switched to oral BID on 01/01. - No bloody or melenic stools since admission. If stable on heparin gtt x 1 day, could return to DOAC. Could consider apixaban as it generally has less renal adjustment than Xarelto. (3) CKD (chronic kidney disease) stage 4, GFR 15-29 ml/min: Plan: Baseline Cr has ranged from 1.4 - 1.9 over last few months. CrCl ~20 mL/min. Saw Dr. Greene on 11/12 with note indicating hx of TREVIN and hypercalcemia. - With mild acute renal injury on 01/01. Appeared volume down and started IV fluids. -> Cr improved today to 1.6. (4) Acute respiratory failure with hypoxia: Plan: Patient was noted to be hypoxic on RA at [facility] and in the ED, stable on 2L NC. Patient denies O2 at baseline. - RVP and procal were negative, possible LLL atelectasis on CXR - Home breathing treatments ordered, added q6h albuterol and incentive spirometry. - CXR on 01/01 showed trace pulmonary edema. BNP mildly elevated, but echo of heart was largely normal. (5) COPD (chronic obstructive pulmonary disease): Plan: - See acute hypoxic resp failure (6) HTN (hypertension): Plan: BP presently is 150/90. - Hold home metoprolol for now as she was noted to be hypotensive and possible GI bleed (7) Peripheral vascular disease: Plan: - Hold home aspirin for now with possible GI bleed -> Likely resume on discharge given her severe PVD. (8) Right foot drop: Plan: - At baseline (9) Ambulatory dysfunction: Plan: At baseline and currently residing at [facility]. - No inpatient needs (10) Hypothyroid: Plan: TSH was 3.3 in 07/2021. Rechecked TSH on 01/02, and it is 26.4, but in the setting of acute illness. - Continue home levothyroxine - Consider dose adjustment if recheck in 1-2 weeks is still high. (11) Open wound of right heel: Plan: Currently clean and wrapped - Continue wound care (12) Dyslipidemia: Plan: - Continue home simvastatin (13) Greater trochanteric bursitis: Plan: - Continue PT/OT Admission and Anticipated Discharge Date Admission Date: December 30, 2021 Subjective Feeling much better today, but still having some random twitching. No shortness of breath. O2 was able to be weaned. Reports no fevers/chills, chest pain, shortness of breath, abdominal pain, nausea, or vomiting. Physical Exam Constitutional: WD/WN, vitals as above Eyes: EOM intact bilaterally; no conjunctival abnormality ENMT: external ear and nose normal, oropharynx normal Neck: trachea midline, no thyromegaly normal visual inspection Respiratory: normal respiratory effort, lungs clear to auscultation no respiratory distress Cardiovascular: RRR, no murmur, no edema Gastrointestinal (Abdomen): Inspection/Auscultation: abdomen normal to inspection; abdomen not distended Musculoskeletal: no cyanosis or clubbing, extremities motor strength 5/5 Skin: no rashes, warm and dry Neurologic: moves all extremities and awake Psychiatric: Orientation: alert, oriented to person and cooperative Results & Data Results & Data ([facility]) Vital Signs (Past 12 Hours) Vital Signs Temp Pulse Pulse Resp BP Pulse Ox Pulse Ox 01/02/22 16:35 36.9 C 88 19 148/92 H 94 01/02/22 16:00 93 H 01/02/22 13:00 90 01/02/22 11:13 36.6 C 84 19 133/56 L 97 01/02/22 08:00 87 01/02/22 08:00 01/02/22 08:07 37.1 C 96 H 19 155/75 H 96 O2 Del Method O2 Del Method O2 Flow Rate 01/02/22 16:35 Room Air 01/02/22 16:00 01/02/22 13:00 Room Air 01/02/22 11:13 Nasal Cannula 2 01/02/22 08:00 01/02/22 08:00 Nasal Cannula 2 01/02/22 08:07 Room Air PG Care Time/CCT Total # of Minutes Spent Total Time Spent with Patient: Total time spent is greater than 50% in coordination of care (as documented) at patient's floor/unit and/or counseling patient: Coding Level of Care Code 66683 Subseq Hosp Care Lvl 3 Diagnoses DVT (deep venous thrombosis) I82.409 Anemia D64.9 CKD (chronic kidney disease) stage 4, GFR 15-29 ml/min N18.4 Acute respiratory failure with hypoxia J96.01 COPD (chronic obstructive pulmonary disease) J44.9 HTN (hypertension) I10 Peripheral vascular disease I73.9 Right foot drop M21.371 Ambulatory dysfunction R26.2 Hypothyroid E03.9 Open wound of right heel S91.301A Encounter type: initial encounter Dyslipidemia E78.5 Greater trochanteric bursitis M70.60 (1) Open wound of right heel Encounter type: initial encounter Qualified Code(s): S91.301A - Unspecified open wound, right foot, initial encounter
[2022-01-02] MEDS: HEPARIN SODIUM/DEXTROSE 25,000 UNITS/500 ML BAG IV SCH (17:45)
[2022-01-02] MEDS: Heparin IV Adult Wt-Based Low-Dose *NO* Bolus Protocol IV SCH ×3 (17:47→17:56)
[2022-01-03 00:33] LABS: Partial Thromboplastin Ratio 1.5; Partial Thromboplastin Time 40.1 Seconds (21.0-31.0)
[2022-01-03] MEDS: LEVOTHYROXINE SODIUM 125 MCG TABLET PO SCH (06:46)
[2022-01-03 07:05] LABS: Hematocrit (blood only) 25.6 % (34.1-44.9); Hemoglobin 8.4 g/dl (12.0-16.0); Mean Corpuscular Hemoglobin 33.3 pg (25.0-34.0); Mean Corpuscular Hgb Conc 32.8 g/dL (32.0-36.0); Mean Corpuscular Volume 101.6 fL (80.0-100.0); Mean Platelet Volume 9.6 fL (9.4-12.3); Platelet Count 228 K/uL (130-400); RDW Coefficient of Variation 17.7 % (11.5-14.5); RDW Standard Deviation 62.8 fL (36.4-46.3); Red Blood Count 2.52 M/uL (3.93-5.22); White Blood Count 6.68 K/ul (4.8-10.8)
[2022-01-03 07:32] LABS: Partial Thromboplastin Ratio 1.7
[2022-01-03 07:33] LABS: Partial Thromboplastin Time 47.3 Seconds (21.0-31.0)
[2022-01-03 07:36] LABS: BUN Creatinine Ratio 19.6 (10-20); Calcium 9.2 mg/dl (8.5-10.1); Est GFR (African American) 30.9 ml/min; Est GFR (Non-African American) 26.7 ml/min; Magnesium 1.9 mg/dl (1.7-2.4); Potassium 3.7 mmol/L (3.5-5.1)
[2022-01-03] MEDS: GABAPENTIN 600 MG TAB PO SCH ×3 (08:37→20:06)
[2022-01-03] MEDS: MAGNESIUM OXIDE 400 MG TAB PO SCH (08:37)
[2022-01-03] MEDS: SIMVASTATIN 20 MG TAB PO SCH (08:37)
[2022-01-03] MEDS: COLCHICINE 0.6 MG TAB PO SCH (08:38)
[2022-01-03] MEDS: PANTOprazole 40 MG TAB PO SCH ×2 (08:38→20:06)
[2022-01-03] MEDS: UMECLIDINIUM BROMIDE 62.5MCG/BLISTER 7 PUFFS/INHALER INH SCH (08:39)
--- NOTE | 2022-01-03 13:08 | Hospitalist Progress Note ---
Date of Service January 03, 2022 Assessment & Plan (1) DVT (deep venous thrombosis): Plan: RLE DVT noted on Doppler on 01/02. Patient reports she was diagnosed with DVT 2- 3 weeks ago at [facility], but this was missed during admission and up to this point. Confirmed with CC team that this was in fact true. - Started heparin low-dose on 01/02. - Discussed with GI on 01/02 given concern for GI bleed. [place] anticoagulation was acceptable and to continue PPI PO BID. No plan for EGD unless overt sign/symptom of GI bleeding. - Defer CTA chest at this time as we plan for anticoagulation regardless. Per report, DVT was more extensive 2 weeks ago, so I guess I suspect some of it is in fact now a PE. - H&H remains stable, will plan to repeat labs tomorrow AM, as long as stable, can start Eliquis 5mg BID and stop Heparin gtt (2) Anemia: Plan: Hgb was 5.7 on admission; noted to be 11.4 in September. No signs of active bleeding on exam, ED reported + guaiac test on JUSTIN. - S/p 2 units PRBCs on 12/30. Hgb up to 9.6 on 12/31; now down to 8.5. - GI consulted; patient prefers to defer EGD due to stability and not wanting extra procedures. - Continued PPI ggt x 48 hours, then switched to oral BID on 01/01. - No bloody or melenic stools since admission. If stable on heparin gtt x 1 day, could return to DOAC. - Plan to resume Eliquis 01/03 as long as H&H remains stable w/o further s/sx concerning for acute GI bleeding (3) CKD (chronic kidney disease) stage 4, GFR 15-29 ml/min: Plan: Baseline Cr has ranged from 1.4 - 1.9 over last few months. CrCl ~20 mL/min. Saw Dr. Greene on 11/12 with note indicating hx of TREVIN and hypercalcemia. - With mild acute renal injury on 01/01. Appeared volume down and started IV fluids. -> Cr stable at 1.6 (4) Acute respiratory failure with hypoxia: Plan: Patient was noted to be hypoxic on RA at [facility] and in the ED, stable on 2L NC. Patient denies O2 at baseline. - RVP and procal were negative, possible LLL atelectasis on CXR - Home breathing treatments ordered, added q6h albuterol and incentive spirometry. - CXR on 01/01 showed trace pulmonary edema. BNP mildly elevated, but echo of heart was largely normal. (5) COPD (chronic obstructive pulmonary disease): Plan: - See acute hypoxic resp failure (6) HTN (hypertension): Plan: BP presently is 150/90. - Hold home metoprolol for now as she was noted to be hypotensive and possible GI bleed (7) Peripheral vascular disease: Plan: - Hold home aspirin for now with possible GI bleed -> Likely resume given her severe PVD. -> may want to consider holding x 7-14 days and then restarting since she will be going out on Eliquis, introduce one at a time (8) Right foot drop: Plan: - At baseline (9) Ambulatory dysfunction: Plan: At baseline and currently residing at [facility]. - No inpatient needs (10) Hypothyroid: Plan: TSH was 3.3 in 07/2021. Rechecked TSH on 01/02, and it is 26.4, but in the setting of acute illness. - Continue home levothyroxine - Consider dose adjustment if recheck in 1-2 weeks is still high. (11) Open wound of right heel: Plan: Currently clean and wrapped - Continue wound care (12) Dyslipidemia: Plan: - Continue home simvastatin (13) Greater trochanteric bursitis: Plan: - Continue PT/OT Plan Continue to monitor today with follow up labs ordered for tomorrow morning. As long as H&H remains stable, start Eliquis (order already in place) and stop Heparin gtt. She can return to [facility] tomorrow, but per case management, they are requesting her there by noon. Plan d/w Dr. Erasmo Alcantar. Admission and Anticipated Discharge Date Admission Date: December 30, 2021 Subjective Patient seen on daily rounds this morning. She is resting comfortably in bed, has no complaints at present. Denies dyspnea, cp, n/v/d, f/c, headache. Review of Systems Review of Systems: All systems reviewed and are unremarkable except as noted in HPI and below. Denies fever, chills, fatigue, headache, nasal congestion, sore throat, cough, chest pain, shortness of breath, palpitations, orthopnea, PND, abdominal pain, n/v/d, constipation, dysuria, hematuria, frequency, back pain, joint pain or swelling, easy bruising or bleeding, skin lesions or rashes. Physical Exam Physical Exam: GENERAL: 89 yo Well-developed, well-nourished elderly WF. NAD. LUNGS: nonlabored, fine bibasilar crackles, no wheezes or rhonchi appreciated. CARDIOVASCULAR: Regular rate and rhythm. ABDOMEN: Soft, non-tender and non-distended. BS normoactive x 4 quad. EXTREMITIES: No edema. Non-tender. Peripheral pulses +2/4. NEUROLOGIC: A&O x3. Nonfocal PSYCHIATRIC: Cooperative. Appropriate mood and affect. SKIN: Warm, dry, intact. open wound R heel Results & Data Results & Data ([facility]) Vital Signs (Past 12 Hours) Vital Signs Temp Pulse Pulse Resp BP BP Pulse Ox 01/03/22 11:26 36.7 C 85 19 122/75 97 01/03/22 10:04 01/03/22 07:37 36.8 C 87 18 159/77 H 95 01/03/22 06:56 89 01/03/22 03:50 36.9 C 85 18 129/73 94 O2 Del Method O2 Flow Rate 01/03/22 11:26 Room Air 01/03/22 10:04 Room Air, Nasal Cannula 2 01/03/22 07:37 Nasal Cannula 3 01/03/22 06:56 01/03/22 03:50 Nasal Cannula 2.0 Laboratory Results 01/03/22 06:06 01/03/22 06:06 PG Care Time/CCT Total # of Minutes Spent Total Time Spent with Patient: Total time spent is greater than 50% in coordination of care (as documented) at patient's floor/unit and/or counseling patient: Coding Level of Care Code 20754 Subseq Hosp Care Lvl 2 Diagnoses DVT (deep venous thrombosis) I82.409 Anemia D64.9 CKD (chronic kidney disease) stage 4, GFR 15-29 ml/min N18.4 Acute respiratory failure with hypoxia J96.01 COPD (chronic obstructive pulmonary disease) J44.9 HTN (hypertension) I10 Peripheral vascular disease I73.9 Right foot drop M21.371 Ambulatory dysfunction R26.2 Hypothyroid E03.9 Open wound of right heel S91.301A Encounter type: initial encounter Dyslipidemia E78.5 Greater trochanteric bursitis M70.60 (1) Open wound of right heel Encounter type: initial encounter Qualified Code(s): S91.301A - Unspecified open wound, right foot, initial encounter
[2022-01-04] MEDS: HEPARIN SODIUM/DEXTROSE 25,000 UNITS/500 ML BAG IV SCH (04:41)
[2022-01-04] MEDS: LEVOTHYROXINE SODIUM 125 MCG TABLET PO SCH (05:52)
[2022-01-04 06:14] LABS: Basophils # (auto) 0.01 K/uL (0-0.2); Basophils % (auto) 0.1 %; Eosinophils # (auto) 0.24 K/uL (0-0.50); Eosinophils % (auto) 3.2 %; Hematocrit (blood only) 26.3 % (34.1-44.9); Hemoglobin 8.5 g/dl (12.0-16.0); Immature Granulocytes # (auto) 0.05 K/uL (0.00-0.02); Immature Granulocytes % (auto) 0.7 %; Lymphocytes # (auto) 1.45 K/uL (1.2-3.4); Lymphocytes % (auto) 19.5 %; Mean Corpuscular Hemoglobin 32.4 pg (25.0-34.0); Mean Corpuscular Hgb Conc 32.3 g/dL (32.0-36.0); Mean Corpuscular Volume 100.4 fL (80.0-100.0); Mean Platelet Volume 9.5 fL (9.4-12.3); Monocytes # (auto) 0.83 K/uL (0.24-0.82); Monocytes % (auto) 11.2 %; Neutrophils # (auto) 4.86 K/uL (1.4-6.5); Neutrophils % (auto) 65.3 %; Platelet Count 231 K/uL (130-400); RDW Coefficient of Variation 17.3 % (11.5-14.5); RDW Standard Deviation 61.3 fL (36.4-46.3); Red Blood Count 2.62 M/uL (3.93-5.22); White Blood Count 7.44 K/ul (4.8-10.8)
[2022-01-04 06:37] LABS: BUN Creatinine Ratio 17.7 (10-20); Calcium 9.2 mg/dl (8.5-10.1); Creatinine Clr Calc Pharmacy 20.3 ml/min; Est GFR (African American) 31.8 ml/min; Est GFR (Non-African American) 27.4 ml/min; Potassium 3.9 mmol/L (3.5-5.1)
[2022-01-04 06:39] LABS: Partial Thromboplastin Ratio 1.8
[2022-01-04 06:44] LABS: Partial Thromboplastin Time 48.6 Seconds (21.0-31.0)
--- NOTE | 2022-01-04 08:37 | Hospitalist Progress Note ---
Date of Service January 04, 2022 Assessment & Plan (1) DVT (deep venous thrombosis): Plan: RLE DVT noted on Doppler on 01/02. Patient reports she was diagnosed with DVT 2- 3 weeks ago at [facility], but this was not noted admission and up to this point. Confirmed with CC team that this was in fact true. - heparin gtt 01/02. - Discussed with GI on 01/02 given concern for GI bleed. [place] anticoagulation was acceptable and to continue PPI PO BID. No plan for EGD unless overt sign/symptom of GI bleeding. -consider transition to Eliquis 5mg BID and stop Heparin gtt (2) Anemia: Plan: Hgb was 5.7 on admission; noted to be 11.4 in September ED reported + guaiac test on JUSTIN. - S/p 2 units PRBCs on 12/30. MCV elevarted. - GI consulted; patient prefers to defer EGD due to stability and not wanting extra procedures. - Continued PPI ggt x 48 hours, then switched to oral BID on 01/01. - (3) CKD (chronic kidney disease) stage 4, GFR 15-29 ml/min: Plan: Baseline Cr has ranged from 1.4 - 1.9 over last few months. CrCl ~20 mL/min. Saw Dr. Greene on 11/12 with note indicating hx of TREVIN and hypercalcemia. - With mild acute renal injury on 01/01. Appeared volume down and started IV fluids. -> Cr stable at 1.6 (4) Acute respiratory failure with hypoxia: Plan: Patient was noted to be hypoxic on RA at [facility] and in the ED, stable on 2L NC. Patient denies O2 at baseline. - RVP and procal were negative, possible LLL atelectasis on CXR - Home breathing treatments ordered, added q6h albuterol and incentive spirometry. - CXR on 01/01 showed trace pulmonary edema. BNP mildly elevated, but echo of heart was largely normal. (5) COPD (chronic obstructive pulmonary disease): Plan: - See acute hypoxic resp failure (6) HTN (hypertension): Plan: BP presently is 150/90. - Hold home metoprolol for now as she was noted to be hypotensive and possible GI bleed (7) Peripheral vascular disease: Plan: - Hold home aspirin for now with possible GI bleed -> Likely resume given her severe PVD. -> may want to consider holding x 7-14 days and then restarting since she will be going out on Eliquis, introduce one at a time (8) Right foot drop: Plan: - At baseline (9) Ambulatory dysfunction: Plan: At baseline and currently residing at [facility]. - No inpatient needs (10) Hypothyroid: Plan: TSH was 3.3 in 07/2021. Rechecked TSH on 01/02, and it is 26.4, but in the setting of acute illness. - Continue home levothyroxine - Consider dose adjustment if recheck in 1-2 weeks is still high. (11) Open wound of right heel: Plan: Currently clean and wrapped - Continue wound care (12) Dyslipidemia: Plan: - Continue home simvastatin (13) Greater trochanteric bursitis: Plan: - Continue PT/OT Admission and Anticipated Discharge Date Admission Date: December 30, 2021 Results & Data Results & Data ([facility]) Vital Signs (Past 12 Hours) Vital Signs Temp Pulse Pulse Resp BP BP Pulse Ox 01/04/22 08:00 98.2 F 99 H 18 149/73 H 95 01/04/22 03:38 98.4 F 93 H 18 159/88 H 95 01/03/22 22:26 79 01/03/22 23:06 98.1 F 90 18 146/73 H 94 O2 Del Method O2 Flow Rate 01/04/22 08:00 01/04/22 03:38 Nasal Cannula 2.0 01/03/22 22:26 01/03/22 23:06 Nasal Cannula 1.0 PG Care Time/CCT Total # of Minutes Spent Total Time Spent with Patient: Total time spent is greater than 50% in coordination of care (as documented) at patient's floor/unit and/or counseling patient: Coding Diagnoses DVT (deep venous thrombosis) I82.409 Anemia D64.9 CKD (chronic kidney disease) stage 4, GFR 15-29 ml/min N18.4 Acute respiratory failure with hypoxia J96.01 COPD (chronic obstructive pulmonary disease) J44.9 HTN (hypertension) I10 Peripheral vascular disease I73.9 Right foot drop M21.371 Ambulatory dysfunction R26.2 Hypothyroid E03.9 Open wound of right heel S91.301A Encounter type: initial encounter Dyslipidemia E78.5 Greater trochanteric bursitis M70.60 (1) Open wound of right heel Encounter type: initial encounter Qualified Code(s): S91.301A - Unspecified open wound, right foot, initial encounter
[2022-01-04] MEDS ORDERED: APIXABAN 5 MG TABLET PO SCH (09:00)
[2022-01-04] MEDS: COLCHICINE 0.6 MG TAB PO SCH (09:18)
[2022-01-04] MEDS: MAGNESIUM OXIDE 400 MG TAB PO SCH (09:18)
[2022-01-04] MEDS: GABAPENTIN 600 MG TAB PO SCH (09:18)
[2022-01-04] MEDS: PANTOprazole 40 MG TAB PO SCH (09:19)
[2022-01-04] MEDS: SIMVASTATIN 20 MG TAB PO SCH (09:20)
[2022-01-04] MEDS: UMECLIDINIUM BROMIDE 62.5MCG/BLISTER 7 PUFFS/INHALER INH SCH (09:21)
--- NOTE | 2022-01-04 18:35 | Discharge Summary ---
Date of Service January 04, 2022 Admission HPI Per Admitting Provider Alona is an 89 year old female with a PMH significant for HTN, hypothyroidism, COPD, previous DVT treated with xarelto, hypercalcemia, Renal artery stenosis, PAD, DMII,spinal stenosis, cervical radiculopathy, postlaminectomy syndrome of the lumbar spine, right foot drop, associated ambulatory dysfunction, CKD III, osteoporosis, who presented to the [facility] ED on 12/30/21 via EMS from [facility] for hypotension and hypoxia. Per the patient, she has been feeling more weak over the past week and started experiencing exertional dyspnea during PT/OT. She states that her BP was found to be low this AM and her O2 saturation was also low so EMS was called. When asked, the patient denies need for O2 at baseline and is unsure if she is currently on blood thinners. She denies recent fevers but has been cold, she den ies chest pain, abdominal pain, nausea, vomiting, dysuria, hematuria, and recent falls. When asked she states her last BM was yesterday but is legally blind so she is unsure if there was blood or melena. In the ED the patient was found to be hemodynamically stable, afebrile, and hypoxic on RA in the mid-low 80's, she was placed on 3L NC and remained stable. Her Hgb was noted to be 5.7, down from 11.4 back in september of 2021. BUN and Cr were increased compared to baseline and her MCV was noted to be elevated. Per the ED staff, the patient was guaiac + on JUSTIN. Chest xray noted some LLL consolidation possibly related to aspiration pneumonia and her mag was slightly elevated at 3.2. She was started on a protonix drip and ordered 2 units PRBCs by the ED. Principal Diagnosis dvt leg anemia s/p transfusion 2 u prbc iron deficiency repleted Discharge Exam The patient appeared stable Vital signs as documented. Lungs are clear to auscultation and appear unlabored Cardiac exam, Rhythm is regular.. No murmurs, rubs or gallops. Abdominal exam reveals normal bowel sounds, soft non tender, no masses Extremities are nonedematous and both pedal pulses are normal. Neurologic exam is alert and oriented, no focal loss of strength or sensation Skin is without bruises or rashes Psychologically is without concerns for anxiety or depression. Discharge Data Allergies Allergy/AdvReac Type Severity Reaction Status Date / Time codeine AdvReac Intermediate GI SYMPTOMS Verified 11/12/21 11:44 oxycodone AdvReac Intermediate GI SYMPTOMS Verified 11/12/21 11:44 Consultations 12/30/21 09:50 ED Decision to Admit Stat 12/30/21 10:49 Consult Gastroenterology Routine Ordered Studies 01/02/22 13:[address] [facility] Urgent Hospital Course (1) DVT (deep venous thrombosis): RLE DVT noted on Doppler on 01/02. Patient reports she was diagnosed with DVT 2- 3 weeks ago at [facility], but this was not noted admission and up to this point. Confirmed with CC team that this was in fact true. - heparin gtt 01/02. transitioned to Eliquis 5mg BID without issues - Discussed with GI on 01/02 given concern for GI bleed. [place] anticoagulation was acceptable and to continue PPI PO BID. No plan for EGD unless overt sign/symptom of GI bleeding. - (2) Anemia: Hgb was 5.7 on admission; noted to be 11.4 in September ED reported + guaiac test on JUSTIN. - S/p 2 units PRBCs on 12/30. MCV elevarted. - GI consulted; patient prefers to defer EGD due to stability and not wanting extra procedures. - protonix oral BID o - (3) CKD (chronic kidney disease) stage 4, GFR 15-29 ml/min: Baseline Cr has ranged from 1.4 - 1.9 over last few months. CrCl ~20 mL/min. Saw Dr. Greene on 11/12 with note indicating hx of TREVIN and hypercalcemia. - With mild acute renal injury on 01/01. repleted volume with ivf -> Cr stable at 1.6 (4) Acute respiratory failure with hypoxia: Patient was noted to be hypoxic on RA at [facility] and in the ED, stable on 2L NC. Patient denies O2 at baseline. - RVP and procal were negative, possible LLL atelectasis on CXR - resolved (5) COPD (chronic obstructive pulmonary disease): - See acute hypoxic resp failure (6) HTN (hypertension): resume lower dose metoprolol (7) Peripheral vascular disease: - -> Likely resume low dose asprin given her severe PVD. -> (8) Right foot drop: - At baseline (9) Ambulatory dysfunction: At baseline and currently residing at [facility]. - No inpatient needs (10) Hypothyroid: TSH was 3.3 in 07/2021. Rechecked TSH on 01/02, and it is 26.4, but in the setting of acute illness. - Continue home levothyroxine - Consider dose adjustment if recheck in 6 weeks (11) Open wound of right heel: Currently clean and wrapped - Continue wound care (12) Dyslipidemia: - Continue home simvastatin (13) Greater trochanteric bursitis: - Continue PT/OT Total Time Total Time Spent Total Time Spent (In Minutes): It required greater than 30 minutes to prepare this patient for discharge Discharge Plan Discharge Items Patient Disposition: Transfer Detention Fac Reason For Visit: ILLNESS Discharge Diagnosis: anemia s/p 2 u prbc dvt now on anticoagulation suspect UGI bleed stable on Anticoagulation ckd 4 Activity: Resume your previous activity Non-emergency contact: Primary Care Provider Call non-emergency contact if: your symptoms worsen Follow-up/Referrals: [facility] [Primary Care Provider] - Diet: Regular Addtl Attending Provider Instructions: as pt did have anemia and now has been stable but transitioned to eliquis, would recommend watching hgb closely although is macrocytic did have B12 and folate checked as normal 12/30/21 GI medicine recommends bid protonix for 6 weeks conbsider voiding trial to remove iniguez upon return Pending Studies at Discharge: No Stand-Alone Forms: My [facility] Skilled Items Patient informed of condition?: Yes DNR: Yes Discharge Level of Care: Skilled Communicable Disease: No Discharge Prognosis: Stable Lines: None Urinary Catheter: Yes Medications and DC Order Prescriptions: New Eliquis 5 mg Tablet 5 mg PO BID Qty: 60 0RF pantoprazole 40 mg Tablet,Delayed Release (Dr/Ec) 40 mg PO BID Qty: 60 0RF Continued quinine sulfate 200 mg capsule 200 mg PO DAILY acetaminophen 325 mg tablet 325 mg PO QID PRN ICaps [id number] Tablet Extended Release 2 tab PO DAILY polyethylene glycol 3350 [Miralax] 17 gram Powder In Packet 17 g PO DAILY PRN (Reason: constipation) Qty: 30 0RF meclizine 12.5 mg Tablet 12.5 mg PO Q8 PRN (Reason: dizziness) Qty: 30 0RF docusate sodium 100 mg Capsule 100 mg PO BID Qty: 60 0RF levothyroxine 125 mcg tablet 125 mcg PO DAILY gabapentin 300 mg capsule 600 mg PO TID magnesium oxide 400 mg magnesium tablet 400 mg PO BID mupirocin 2 % ointment 1 applic TOPICAL DIRECTED Rx Instructions: Apply to affected area on left 3rd toe metoprolol succinate 25 mg tablet extended release 24 hr 12.5 mg PO DAILY Spiriva with HandiHaler 18 mcg capsule, w/inhalation device 1 cap INHALATION DAILY ProAir RespiClick 90 mcg/actuation aerosol powdr breath activated 2 inh INHALATION DIRECTED simvastatin 20 mg tablet 20 mg PO DAILY Qty: 30 0RF Discontinued aspirin 81 mg tablet,delayed release (DR/EC) 81 mg PO HS colchicine 0.6 mg Tablet 0.6 mg PO DAILY furosemide [Lasix] 20 mg tablet 20 mg PO DAILY Qty: 30 0RF Discharge Orders: Discharge Order (Routine); Ordered 01/04/22 Ordered By: Danny Paul Admission Data Admit Date/Time: 12/30/21 10:16 Attending Provider: Danny Paul Admit Provider: Moe Blake Primary Care Provider: [facility] Other Providers: Ankit Dewitt ; Bakari Lees ; [facility] Other Interventions: Discharge Summary Assessment (RN) Last Done: 01/04/22 10:05 Coding Level of Care Code D/C DAY MANAGEMENT >30 MINS Diagnoses DVT (deep venous thrombosis) I82.409 Anemia D64.9 CKD (chronic kidney disease) stage 4, GFR 15-29 ml/min N18.4 Acute respiratory failure with hypoxia J96.01 COPD (chronic obstructive pulmonary disease) J44.9 HTN (hypertension) I10 Peripheral vascular disease I73.9 Right foot drop M21.371 Ambulatory dysfunction R26.2 Hypothyroid E03.9 Open wound of right heel S91.301A Encounter type: initial encounter Dyslipidemia E78.5 Greater trochanteric bursitis M70.60
== END 2022-01-04 11:13 | DRG 377 ==
LOC: ED 06:51 → SUATTDRO 10:16 → EDINP 10:16 → 2S 18:35